=== PATIENT | female | born 1955 | race African-American/Black ===

== ENCOUNTER 2018-03-19 11:38 | Inpatient (IN) | payer MEDICARE ==
[2018-03-19] MEDS ORDERED: Dextrose 50% Abboject 50 ML SYRINGE SLOW IVP PRN (14:36)
[2018-03-19] MEDS ORDERED: Insulin Regular 300 UNITS/3 ML VIAL SC PRN ×2 (14:36)
[2018-03-19] MEDS ORDERED: Ondansetron ODT 4 MG TAB PO PRN (14:36)
[2018-03-19] MEDS ORDERED: Dextrose 5% in Water 1,000 ML IV PRN (14:36)
[2018-03-19] MEDS ORDERED: Acetaminophen 650 MG Suppository PR PRN (14:36)
[2018-03-19] MEDS ORDERED: hydrALAZINE 20 MG/ML VIAL SLOW IVP PRN (15:51)
--- NOTE | 2018-03-19 16:03 | HP ---
DATE OF ADMISSION: 03/19/2018 PRIMARY CARE PHYSICIAN: [facility] in [place]. CHIEF COMPLAINT: Nausea, vomiting with abdominal discomfort. HISTORY OF PRESENT ILLNESS: The patient is a 63-year-old female with diabetes ilene echevarria type 2, hypertension, presented to the emergency room at [facility] with abdominal discomfort that woke her up from sleep. She had several episodes of vomiting prior to the ER arrival. The abdominal pain was in the left lower quadrant, cramping without any aggravating or relieving factor. She felt generally weak and fatigued. No fevers or chills reported. She had a normal bowel movement this mo rning. She denies any chest pain, palpitations, diaphoresis or syncope. In the emergency room, her initial vital signs showed temperature 98.9, respirations 16, pulse rate o f 74 with O2 saturation 89% on room air. Blood pressure was 152/81. CT scan of the abdomen was cons istent with possible small-bowel obstruction. She was transferred to this facility for [facility]. She received 50 mcg fentanyl, 4 mg IV morphine, Zofran with IV fluids. PAST MEDICAL HISTORY: 1. Gout with recent flare. Her uric acid was 11.3 at that time. 2. Asthma, mild, intermittent. 3. Chronic atrial fibrillation on anticoagulation. 4. Hypertension. 5. Diabetes mellitus type 2. 6. Degenerative joint disease. 7. Morbid obesity. 8. Chronic kidney disease stage 3. PAST SURGICAL HISTORY: 1. Partial thyroidectomy in 2014. 2. Hysterectomy. 3. Hernia repair. ALLERGIES: No known drug allergies. CURRENT HOME MEDICATIONS: Per primary care physician's office record, montelukast 10 mg daily, Zyrte c 10 mg daily, Xarelto 20 mg daily, Cardizem extended release 240 mg daily, Lasix 20 mg daily, potass ium chloride 10 mEq daily, lisinopril 20 mg daily, Tradjenta 5 mg daily, Lyrica 50 mg 3 times a day, allopurinol 100 mg daily. SOCIAL HISTORY: The patient currently lives at home with her family. No current use of smoking, alc ohol or drug use. She is full code. FAMILY HISTORY: Negative for premature coronary artery disease or malignancy. REVIEW OF SYSTEMS: The following complete review of systems was negative, unless otherwise mentioned in the HPI or below: Constitutional: Weight loss or gain, ability to conduct usual activities. Sk in: Rash, itching. Eyes: Double vision, pain. ENT/Mouth: Nose bleeding, neck stiffness, pain, te nderness. Cardiovascular: Palpitations, dyspnea on exertion, orthopnea. Respiratory: Shortness of breath, wheezing, cough, hemoptysis, fever or night sweats. Gastrointestinal: Poor appetite, abdom inal pain, heartburn, nausea, vomiting, constipation, or diarrhea. Genitourinary: Urgency, frequenc y, dysuria, nocturia. Musculoskeletal: Pain, swelling. Neurologic/Psychiatric: Anxiety, depressio n. Allergy/Immunologic: Skin rash, bleeding tendency. PHYSICAL EXAMINATION: VITAL SIGNS: As discussed above. GENERAL: A 63-year-old female in distress. She is vomiting at this time. HEENT: Head atraumatic, normocephalic. Sclerae are anicteric. Moist mucous membrane. No oral lesi on. NECK: Supple, no JVD, no carotid bruit. LUNGS: Clear to auscultation bilaterally with diminished air entry at bases. HEART: S1, S2 present. Regular rate and rhythm. No murmur, rubs or gallops appreciated. ABDOMEN: Soft, mild tenderness in the left lower quadrant. No rebound, guarding appreciated. Bowel sounds hypoactive. EXTREMITIES: 1+ edema in bilateral lower extremities. SKIN: Warm and dry. LYMPH NODES: No palpable lymph nodes in the neck. PERIPHERAL VASCULAR: Radial pulses palpable bilaterally. MUSCULOSKELETAL: No joint swelling or tenderness. LABORATORY FINDINGS: CBC showed WBC 11 with a hemoglobin of 11.3, hematocrit 35.4, platelet 185,000. Chemistries showed sodium 141, potassium 4.2, chloride 105, bicarbonate 25, BUN 24, creatinine 1.59 . Urinalysis was negative for WBC. It showed 1+ bacteria. IMAGING: CT scan of the abdomen and pelvis by my review as discussed above. IMPRESSION: 1. Small-bowel obstruction. 2. Chronic atrial fibrillation on anticoagulation. 3. Diabetes mellitus type 2. 4. Hypertension. 5. Mild persistent asthma. 6. Chronic pain syndrome. 7. Degenerative joint disease. 8. Gout. 9. Morbid obesity. 10. Chronic kidney disease stage 3. 11. Chronic anemia. PLAN: The patient will be monitored on the surgical floor. She currently does not have an NG tube. We will consult General Surgery. We will start her on IV fluids. We will confirm home medications. N.p.o. We will place an NG tube if she has persistent nausea and vomiting. Plan of care was discussed with the patient in detail. She stated understanding.
[2018-03-19 16:05] VITALS: BMI 42.3
[2018-03-19] MEDS: Ondansetron HCl/PF 4 MG/2 ML Vial IVP PRN (17:39)
[2018-03-19] MEDS: Sodium Chloride 0.9% 1,000 ML IV SCH (18:05)
[2018-03-19] MEDS: Famotidine/PF 20 mg/2ml Vial SLOW IVP SCH (21:03)
--- NOTE | 2018-03-19 23:26 | CON ---
DATE OF CONSULTATION: 03/19/2018 REQUESTING PHYSICIAN: Dr. Yohan Montez. HISTORY OF PRESENT ILLNESS: This is a 63-year-old morbidly obese -[place] woman who presente d with acute onset of left lower quadrant abdominal pain which woke her up approximately 05:00 hours this morning. Pain intensified, so patient called 911 and was taken to [facility] . Workup there included a CT scan of the abdomen and pelvis following which patient was transferred here to [facility] in [place], [place] for upper level workup and care. The patient reports pain 10/ 10 in maximum intensity, described as crampy without any radiation. She denies any fevers or chills. She did have normal bowel movement this morning. She does not recall the last time she passed flat us. She did have one bout of emesis shortly after arriving here at [facility] in [place], [place]. Curre ntly, she reports 6/10 left-sided greater than upper abdominal pain. She complains of some nausea. She denies any unexplained weight loss or any change in her bowel habits recently. PAST MEDICAL HISTORY: Pertinent for morbid obesity, obstructive sleep apnea, chronic atrial fibrilla tion, type 2 diabetes mellitus, degenerative arthritic disease, stage 3 chronic kidney disease and as thma. PAST SURGICAL HISTORY: Pertinent for partial thyroidectomy in 2014, a total abdominal hysterectomy, ventral incisional herniorrhaphy in 2013 as well as 2015. PREHOSPITALIZATION MEDICATIONS: Includes allopurinol 100 mg p.o. daily, diltiazem 240 mg p.o. daily, furosemide 20 mg p.o. daily, Tradjenta 5 mg p.o. daily, lisinopril 20 mg p.o. daily, montelukast 10 mg p.o. daily, potassium chloride 10 mEq p.o. daily, Lyrica 50 mg p.o. t.i.d., and Xarelto 20 mg p.o. daily. ALLERGIES: Patient denies any known drug allergies. REVIEW OF SYSTEMS: A 10-point review of systems is essentially unremarkable except for as stated in past medical history and chief complaint. PHYSICAL EXAMINATION: GENERAL: This reveals a 63-year-old morbidly obese woman who is otherwise coherent and interactive a nd appears stated age. Patient is alert, oriented x3, appears to be in no acute distress at the time of my evaluation. VITAL SIGNS: Includes blood pressure 179/93, pulse is 89, respiratory rate is 18, temperature 97.4 d egrees Fahrenheit, oxygen saturation is 94% on room air. HEENT: Examination reveals normocephalic and atraumatic. HEART: Reveals regular rate and rhythm, no murmurs or gallops auscultated. LUNGS: Clear to auscultation bilaterally. Breathing is regular and unlabored. ABDOMEN: Soft, morbidly obese. She has mild to moderate tenderness to palpation, no gross rebound t enderness present. Liver and spleen are nonpalpable below costal margin. She has no palpable abdomi nal wall defects to suggest recurrent hernias. NEUROLOGIC: Examination reveals no focal deficits present. PERTINENT LABORATORY DATA: Includes CBC which was obtained in [place] prior to this transfer with 1 1,000 white blood cells, hemoglobin and hematocrit 11.3 and 35.4 respectively, platelet count 185,000 . Metabolic profile; sodium 141, potassium 4.2, chloride is 105, bicarbonate is 27, BUN 24, creatini ne is 1.59, glucose is 174. Hemoglobin A1c 7.9%. AST and ALT normal at 16 and 17 respectively. IMAGING DATA: 1. I have personally reviewed the CT scan of the abdomen and pelvis which reveals a few dilated loop s of small bowel, minimal air fluid level present. 2. There is no free fluid or pneumoperitoneum present. 3. There is scattered gas in the colon and rectum. IMPRESSION: 1. Acute partial small-bowel obstruction. 2. Morbid obesity. 3. Type 2 diabetes mellitus. 4. History of obstructive sleep apnea. PLAN: 1. There is no acute surgical indication for this patient at this time. I will continue with bowel rest and nasogastric tube decompression. 2. We will initiate a small bowel follow through to make further recommendations as necessary. Thank you again Dr. Montez for allowing me the opportunity to participate in the care of this patient.
[2018-03-20] MEDS: Sodium Chloride 0.9% 1,000 ML IV SCH ×3 (01:55→09:23)
[2018-03-20 05:13] LABS: #Eosinphils 0.1 thou/uL (0.0-0.7); #Lymphocytes 3.1 thou/uL (1.20-3.40); #Monocytes 0.7 thou/uL (0.11-0.59); #Neutrophils 5.7 thou/uL (1.40-6.50); %Basophils 0.2 % (0.0-1.0); %Eosinophils 1.5 % (0.0-10.0); %Lymphocytes 32.2 % (21.0-51.0); %Monocytes 6.7 % (0.0-10.0); %Neutrophils 59.5 % (42.0-75.0); Hemoglobin 10.8 g/dL (12.0-16.0); Mean Corpuscular Hemoglobin 27.8 pg (27.0-31.0); Mean Corpuscular Volume 89.7 fL (78.0-98.0); Platelet Count 165 thou/uL (130-400); RBC Distribution Width 12.3 % (11.5-14.5); Red Blood Cell (RBC) Count 3.87 mill/uL (4.20-5.40); White Blood Cell (WBC) Count 9.7 thou/uL (4.8-10.8)
[2018-03-20 05:28] LABS: ALT (SGPT) 14 U/L (8-55); AST (SGOT) 13 U/L (5-34); Albumin 3.8 g/dL (3.4-4.8); Alkaline Phosphatase 78 U/L (40-150); Anion Gap 9 mmol/L (10-20); BUN (Urea Nitrogen) 15 mg/dL (9.8-20.1); Bilirubin, Total 0.5 mg/dL (0.2-1.2); Calc. Creatinine Clearance 100 mL/min (70-130); Calcium 8.8 mg/dL (7.8-10.44); Carbon Dioxide 27 mmol/L (23-31); Chloride 111 mmol/L (98-107); Estimated GFR-MDRD 59; Globulin 2.7 g/dL (2.4-3.5); Glucose 124 mg/dL (80-115); Phosphorus 3.8 mg/dL (2.3-4.7); Potassium 4.2 mmol/L (3.5-5.1); Protein, Total 6.5 g/dL (6.0-8.3); Sodium 143 mmol/L (136-145)
[2018-03-20] MEDS: Famotidine/PF 20 mg/2ml Vial SLOW IVP SCH (08:36)
[2018-03-20] MEDS ORDERED: Acetaminophen 1,000 MG in Premix Bag 1 BAG IVPB SCH (09:15)
[2018-03-20] MEDS: Ondansetron HCl/PF 4 MG/2 ML Vial IVP PRN (09:34)
[2018-03-20] MEDS ORDERED: Sodium Chloride 0.9% 1,000 ML IV SCH (11:11)
--- NOTE | 2018-03-20 11:31 | PRG-2 ---
DATE OF SERVICE: 03/20/2018 SUBJECTIVE: The patient is a 63-year-old -Congolese woman with a past medical history significant for type 2 diabetes mellitus and chronic kidney disease stage 3, who is hospital day #2, admitted for a small-bowel obstruction noted on CT scan yesterday. She has been n.p.o. overnight with an NG tube in place. Had approximately 350 mL of output via her NG tube with 100 mL of emesis overnight. The patient endorses having had a bowel movement at approximately 8:30 this morning, but denies passing any gas since her admission. She was scheduled for a repeat small bowel follow through this morning as the one conducted yesterday was appeared to be futile as the patient did not tolerate drinking the oral contrast. However, Radiology did not perform a repeat study as it was noted the patient had residual contrast in her GI tract upon attempting to repeat the exam this morning. I therefore took another image and stated they would like to have repeat imaging around 2:00 p.m. this afternoon. On exam, the patient denies any abdominal pain or nausea and states she feels well. OBJECTIVE: VITAL SIGNS: Temperature 98 degrees Fahrenheit, pulse 95, respirations 18, O2 sat is 97% on 2 liters nasal cannula (of note, patient was breathing comfortably on room air at the time of the exam at approximately 10:30 a.m.), blood pressure 156/84. GENERAL: The patient was sitting up on the edge of the bed, alert, and oriented , in no acute distress. HEENT: Normocephalic, atraumatic. HEART: Regular rate and rhythm, no murmurs. LUNGS: Clear to auscultation bilaterally with good inspiratory and expiratory effort. ABDOMEN: Minimal tenderness to palpation over the surgical scar from 3 abdominal hernia repair surgeries. Otherwise, nontender to palpation. Abdomen is soft and nondistended with normal bowel sounds noted. EXTREMITIES: Full range of motion in all extremities. NEUROLOGIC: Alert and oriented x3. No focal deficits noted. LABORATORY DATA: White blood count 9.7, hemoglobin 10.8, hematocrit 34.7, platelet count 165. Sodium 143, potassium 4.2, chloride 111, bicarbonate 27, BUN 15, creatinine 1.14, blood glucose 124, phosphorus 3.8, magnesium 2.0, total bilirubin 0.5, AST 13, ALT 14, alkaline phosphatase 78. RADIOLOGIC DATA: Abdomen x-ray significant for residual contrast seen throughout the patient's colon. ASSESSMENT: 1. Acute partial small-bowel obstruction, resolving. 2. Morbid obesity. 3. Type 2 diabetes mellitus. 4. History of obstructive sleep apnea. PLAN: We will remove the patient's NG tube and cancel afternoon and will not proceed with repeat imaging this afternoon. Will advance diet to clear liquids as tolerated by the patient as she did in fact have a bowel movement this morning. Will continue to monitor closely for symptoms of abdominal pain and nausea and adjust diet in accordance to this. Will consider deescalating or discontinuing the patient's IV fluids since she will be allowed to take fluids p.o. today. Will continue to encourage ambulation to induce increased bowel activity as well. Will continue to follow. Plan was discussed with the trauma attending, Dr. Rob Hansen. RENATO
--- NOTE | 2018-03-20 11:48 | RAD ---
FRONTAL VIEW ABDOMEN KUB: INDICATION: Small bowel obstruction. FINDINGS: There is contrast opacification within colon. Otherwise, there is a paucity of bowel gas. Upper abd omen is excluded from view. There are phleboliths overlying the pelvis. Osseous degenerative change is present. IMPRESSION: Contrast opacification throughout the mid colon. Otherwise, paucity of bowel gas. POS: [facility]
--- NOTE | 2018-03-20 16:27 | PDOC.PN ---
- Subjective Encounter Start Date: 03/20/18 Encounter Start Time: 10:00 Patient seen and examined for SBO. Had BM earlier. NG tube dced. On Clear liqd. Abd pain improving. No overnight events - Objective Resuscitation Status: Resuscitation Status FULL:Full Resuscitation MAR Reviewed: Yes Vital Signs & Weight: Vital Signs (12 hours) Temp Pulse Resp BP Pulse Ox 03/20/18 15:47 98.2 F 84 18 152/84 H 98 03/20/18 08:30 97 03/20/18 07:00 98.0 F 95 18 156/84 H 97 03/20/18 04:49 98.2 F 102 H 20 149/85 H 98 Weight Admit Weight 270 lb Weight 270 lb I&O: 03/19/18 03/20/18 03/21/18 06:59 06:59 06:59 Intake Total 1875 Output Total 450 Balance 1425 Result Diagrams: 03/20/18 04:16 03/20/18 04:16 Additional Labs: Accuchecks 03/20/18 03/20/18 03/19/18 10:58 05:28 20:48 POC Glucose 110 124 H 143 H Radiology Reviewed by me: Yes (KUB - reviewed) Phys Exam - Physical Examination Constitutional: NAD Respiratory: no wheezing, no rhonchi Cardiovascular: RRR, no rub Gastrointestinal: soft, non-tender, positive bowel sounds Musculoskeletal: no edema Neurological: moves all 4 limbs Dx/Plan - Plan DVT proph w/SCDs IMPRESSION: 1. Small-bowel obstruction. 2. Chronic atrial fibrillation on anticoagulation. 3. Diabetes mellitus type 2. 4. Hypertension. 5. Mild persistent asthma. 6. Chronic pain syndrome. 7. Degenerative joint disease. 8. Gout. 9. Morbid obesity. 10. Chronic kidney disease stage 3. 11. Chronic anemia. PLAN: Resume Anticoag later today if tolerating PO AM labs Resume Cardizem at 120 mg BID Cont sliding scale Cont other meds as below Review of Systems - Review of Systems Respiratory: negative: Cough, Dry, Shortness of Breath, Hemoptysis, SOB with Excertion, Pleuritic Pain, Sputum, Wheezing Cardiovascular: negative: chest pain, palpitations, orthopnea, paroxysmal nocturnal dyspnea, edema, light headedness, other - Medications/Allergies Allergies/Adverse Reactions: Allergies Allergy/AdvReac Type Severity Reaction Status Date / Time No Known Allergies Allergy Verified 03/19/18 16:10 Medications: Current Medications Acetaminophen (Tylenol) 650 mg PO Q4H PRN PRN Reason: Headache/Fever/Mild Pain (1-3) Acetaminophen (Tylenol) 650 mg NE Q4H PRN PRN Reason: Headache/Fever/Mild Pain (1-3) Allopurinol (Zyloprim) 100 mg PO DAILY [facility] Dextrose/Water (Dextrose 50%) 25 gm SLOW IVP PRN PRN PRN Reason: Hypoglycemia Diltiazem HCl (Cardizem Cd) 120 mg PO BID [facility] Famotidine (Pepcid) 20 mg PO BID [facility] Glucagon (Glucagon) 1 mg IM PRN PRN PRN Reason: Hypoglycemia Hydralazine HCl (Apresoline) 10 mg SLOW IVP Q4H PRN PRN Reason: SBP Greater Than 180 Dextrose/Water (D5w) 1,000 mls @ 0 mls/hr IV .Q0M PRN PRN Reason: Hypoglycemia Acetaminophen 1,000 mg/ Device 100 mls @ 400 mls/hr IVPB ONE [facility] Stop: 03/21/18 09:16 Last Admin: 03/20/18 09:23 Dose: 100 mls Insulin Human Regular (Humulin R) 0 units SC .MILD SLIDING SCALE PRN PRN Reason: Mild Correctional Scale Insulin Human Regular (Humulin R) 0 units SC .BEDTIME SLIDING SC PRN PRN Reason: Bedtime Correctional Scale Montelukast Sodium (Singulair) 10 mg PO DAILY [facility] Non-Formulary Medication (Rivaroxaban [Xarelto]) 20 mg PO QPM [facility] Ondansetron HCl (Zofran Odt) 4 mg PO Q6H PRN PRN Reason: Nausea/Vomiting Ondansetron HCl (Zofran) 4 mg IVP Q6H PRN PRN Reason: Nausea/Vomiting Last Admin: 03/20/18 09:34 Dose: 4 mg Pregabalin (Lyrica) 50 mg PO TID [facility] Sodium Chloride (Flush - Normal Saline) 10 ml IVF PRN PRN PRN Reason: Saline Flush
[2018-03-20] MEDS: Famotidine 20 MG TAB PO SCH (18:10)
[2018-03-20] MEDS ORDERED: Rivaroxaban 10 MG TAB PO SCH (21:00)
[2018-03-20] MEDS: Pregabalin 50 MG CAP PO SCH (21:09)
[2018-03-20] MEDS ORDERED: Montelukast Sodium 10 mg Tablet PO SCH (21:15)
[2018-03-21] MEDS: Acetaminophen 325 MG TAB PO PRN ×2 (04:51→09:20)
[2018-03-21 05:34] LABS: ALT (SGPT) 13 U/L (8-55); AST (SGOT) 15 U/L (5-34); Albumin 3.6 g/dL (3.4-4.8); Alkaline Phosphatase 69 U/L (40-150); Anion Gap 8 mmol/L (10-20); BUN (Urea Nitrogen) 14 mg/dL (9.8-20.1); Bilirubin, Total 0.4 mg/dL (0.2-1.2); Calc. Creatinine Clearance 97 mL/min (70-130); Calcium 8.7 mg/dL (7.8-10.44); Carbon Dioxide 28 mmol/L (23-31); Chloride 108 mmol/L (98-107); Estimated GFR-MDRD 56; Globulin 2.7 g/dL (2.4-3.5); Glucose 120 mg/dL (80-115); Protein, Total 6.3 g/dL (6.0-8.3); Sodium 140 mmol/L (136-145)
[2018-03-21 06:06] LABS: Band 6 % (5-11); Eosinophils 1 % (0-10); Hemoglobin 9.8 g/dL (12.0-16.0); Lymphocytes 48 % (21-51); MDiff Complete? YES; Mean Corpuscular HGB CONC 31.7 g/dL (32.0-36.0); Mean Corpuscular Hemoglobin 28.3 pg (27.0-31.0); Monocytes 6 % (0-10); Neutrophil 38 % (42-75); PLT Morphology Comment Appears Adequate; Platelet Count 154 thou/uL (130-400); RBC Distribution Width 12.2 % (11.5-14.5); Red Blood Cell (RBC) Count 3.46 mill/uL (4.20-5.40); White Blood Cell (WBC) Count 7.5 thou/uL (4.8-10.8)
[2018-03-21] MEDS ORDERED: Rivaroxaban 10 MG TAB PO SCH (08:00)
[2018-03-21] MEDS ORDERED: Montelukast Sodium 10 mg Tablet PO SCH ×2 (09:00→21:00)
[2018-03-21] MEDS ORDERED: Allopurinol 100 MG TAB PO SCH (09:00)
[2018-03-21] MEDS: Famotidine 20 MG TAB PO SCH (09:17)
[2018-03-21] MEDS: Pregabalin 50 MG CAP PO SCH ×2 (09:18→15:10)
[2018-03-21 11:41] VITALS: TEMP 98.2
[2018-03-21 15:11] VITALS: BP 148/87
--- NOTE | 2018-03-21 16:14 | PRG ---
DATE OF SERVICE: 03/21/2018 SUBJECTIVE: The patient is hospital day #3 status post admission for possible small-bowel obstructio n. The patient yesterday had her NG tube removed as she was passing gas and denied any nausea overni ght. She tolerated a clear liquid diet and this morning, tolerated a regular diet. She has had mildred l movements and continues to deny nausea and is passing gas. PHYSICAL EXAMINATION: VITAL SIGNS: Temperature is 97.4, heart rate 68, blood pressure 169/84, respirations 18, oxygen satu ration 98% on room air. GENERAL: The patient is resting comfortably, sitting in a chair at bedside. She is awake, alert, or iented x3. HEENT: Unremarkable. LUNGS: Clear to auscultation with good inspiratory and expiratory effort. HEART: Regular rate and rhythm. ABDOMEN: Soft, nontender with active bowel sounds. EXTREMITIES: Neurovascularly intact x4. LABORATORY DATA: White blood cell count 7.5, hemoglobin 9.8, hematocrit 30.8, platelets 154. Sodium 140, potassium 4.0, chloride 108, CO2 of 28, BUN 14, creatinine 1.18, glucose 120. LFTs are unremar kable. There are no radiographs to review this morning. ASSESSMENT AND PLAN: 1. Status post possible small-bowel obstruction, resolved. 2. Known kidney disease, stable. Plan will be to sign off from the patient. There are no surgical indications at this time. Should the patient develop nausea, vomiting or abdominal pain, we are avai lable for reconsultation. The patient may follow up with us as needed, but with a resolved partial S KODY, it will be unlikely she will require followup from our service.
--- NOTE | 2018-03-21 19:03 | DIS ---
DATE OF DISCHARGE: 03/21/2018 DISCHARGE DISPOSITION: Home. FOLLOWUP: 1. Follow up with primary care physician, Vickie Linder in 1 week. 2. Follow up with General Surgery, Dr. Hansen as needed. The patient was seen and examined on the day of discharge, denies any new complaints, no chest pain, shortness of breath, palpitations. She had a bowel movement this morning. She is able to tolerate r egular diet. BRIEF HOSPITAL COURSE: The patient is a 63-year-old -[place] female with diabetes mellitus t ype 2, hypertension, hernia repair, and hysterectomy in the past, presented to the hospital with naus ea, vomiting, and abdominal discomfort. Her workup was consistent with small-bowel obstruction. Ple ase refer to the history and physical for further details. The patient was admitted to the hospital with a diagnosis of small-bowel obstruction. She was kept n .p.o. NG tube was placed. She was started on IV fluids. The patient was seen by General Surgery, Genevieve Hansen. A Gastrografin small bowel follow-through was attempted; however, the patient had residual contrast from the previous day CT scan. Patient then started having bowel movements. NG tube was d iscontinued. She was started on liquid diet that was gradually advanced. Patient also had a bowel m ovement this morning. She is doing well and denies any abdominal discomfort. All of her home medica tions were resumed yesterday afternoon. She appears stable for discharge. FINAL DIAGNOSES: 1. Small-bowel obstruction, resolved. 2. Chronic atrial fibrillation on anticoagulation. 3. Diabetes mellitus type 2. 4. Morbid obesity with body mass index 42.3. 5. Hypertension. 6. Mild persistent asthma. 7. Chronic pain syndrome. 8. Degenerative joint disease. 9. Gout. 10. Chronic kidney disease stage 3. 11. Chronic anemia. DISCHARGE MEDICATIONS: Same as admission medications. No changes were made. Plan of care was discussed with the patient in detail. She stated understanding.
== END 2018-03-21 15:25 | disposition home or self-care (01) | DRG 389 ==
LOC: ERS 11:38 → SURG A 12:50
PROVIDERS: ADMIT Internal Medicine; ATTEND Internal Medicine
DX: K56.600 Partial intestinal obstruction, unspecified as to cause (principal); Z68.41 Body mass index [BMI] 40.0-44.9, adult; E66.01 Morbid (severe) obesity due to excess calories; N18.3 Chronic kidney disease, stage 3 (moderate); I12.9 Hypertensive chronic kidney disease with stage 1 through stage 4 chronic kidney disease, or unspecified chronic kidney disease; M10.9 Gout, unspecified; E11.22 Type 2 diabetes mellitus with diabetic chronic kidney disease; I48.2 Chronic atrial fibrillation; G47.33 Obstructive sleep apnea (adult) (pediatric); M19.90 Unspecified osteoarthritis, unspecified site; J45.20 Mild intermittent asthma, uncomplicated; Z79.899 Other long term (current) drug therapy; Z79.01 Long term (current) use of anticoagulants; G89.4 Chronic pain syndrome; D64.9 Anemia, unspecified
CPT/HCPCS: 36415; 36416; 74018; 74250; 80053; 83735; 84100; 85025; 96374; J0131; J2270; J2405; S0028

== ENCOUNTER 2019-02-10 08:17 | Outpatient (CLI) | payer MEDICARE ==
--- NOTE | 2019-02-18 15:49 | MMO ---
Bilateral MAMMO Bilat Screen [facility]DI+YAIMA. CLINICAL HISTORY: Patient is 64 years old and is seen for screening. The patient has the following family history of breast cancer: maternal grandmother, malignant (generic). The patient has no personal history of cancer. VIEWS: The views performed were: bilateral craniocaudal with tomosynthesis and bilateral mediolateral oblique with tomosynthesis. FILMS COMPARED: The present examination has been compared to prior imaging studies performed at This study has been interpreted with the assistance of computer-aided detection. MAMMOGRAM FINDINGS: There are scattered fibroglandular densities. Finding 1: Benign calcifications are noted bilaterally. Finding 2: Nodules in the right upper outer breast are larger. IMPRESSION: FINDING 1: FINDINGS IN BOTH BREASTS ARE BENIGN. FINDING 2: FINDING IN THE RIGHT BREAST REQUIRES ADDITIONAL EVALUATION. AN ULTRASOUND EXAM IS RECOMMENDED. ADDITIONAL IMAGING. THE RESULTS OF THIS EXAM WERE SENT TO THE PATIENT. ACR BI-RADS Category 0 - Incomplete: Need additional imaging evaluation. [facility] will notify the patient of the need for additional imaging services. MAMMOGRAPHY NOTE: 1. A negative mammogram report should not delay a biopsy if a dominant of clinically suspicious mass is present. 2. Approximately 10% to 15% of breast cancers are not detected by mammography. 3. Adenosis and dense breasts may obscure an underlying neoplasm. Reported by: JIA AZUL MD Electonically Signed: [id number]
== END 2019-02-10 08:18 | disposition home or self-care (01) ==
LOC: BICMAMMO 08:17
PROVIDERS: ATTEND Nurse Practitioner
DX: Z12.31 Encounter for screening mammogram for malignant neoplasm of breast (principal); Z80.3 Family history of malignant neoplasm of breast
CPT/HCPCS: 77063; 77067

== ENCOUNTER 2019-03-12 10:12 | Outpatient (CLI) | payer MEDICARE ==
--- NOTE | 2019-03-12 12:07 | ULT ---
RIGHT BREAST ULTRASOUND: Date: 03/12/19 HISTORY: Abnormal mammogram of 02/10/19. FINDINGS: Correlation is made with mammogram of 02/10/19. Sonographic evaluation of the right upper outer breast demonstrates a 1.5 x 1.3 x 1.4 cm nonshadowing hyperechoic well-circumscribed mass with echogenic center and loss of reniform shape, consistent wit h a suspicious lymph node. A similar finding is also seen between the 9 and 10 o'clock positions measures 1.0 cm. IMPRESSION: BI-RADS Category 4 - Suspicious abnormality. Ultrasound guided biopsies of the enlarged lymph nodes r ecommended. Discussed in person with the patient at 1030 hours. POS: OFF
== END 2019-03-12 10:13 | disposition home or self-care (01) ==
LOC: BICULT 10:12
PROVIDERS: ATTEND Nurse Practitioner
DX: N63.11 Unspecified lump in the right breast, upper outer quadrant (principal)

== ENCOUNTER → 2019-04-09 | Day surgery (SDC) | payer MEDICARE ==
--- NOTE | 2019-04-09 13:52 | MMO ---
Right Breast MAMMO Unilat Diag DDI RT. CLINICAL HISTORY: Patient is 64 years old and is seen for diagnostic exam. The patient has the following family history of breast cancer: maternal grandmother, malignant (generic). The patient has no personal history of cancer. VIEWS: The views performed were: right craniocaudal and right mediolateral. FILMS COMPARED: The present examination has been compared to prior imaging studies performed at on 02/10/2019 and 03/12/2019. This study has been interpreted with the assistance of computer-aided detection. IMPRESSION: FINDING IN THE RIGHT BREAST IS CONFIRMED UTILIZING POST PROCEDURE MAMMOGRAM. THE RESULTS OF THIS EXAM WERE SENT TO THE PATIENT. MAMMOGRAPHY NOTE: 1. A negative mammogram report should not delay a biopsy if a dominant of clinically suspicious mass is present. 2. Approximately 10% to 15% of breast cancers are not detected by mammography. 3. Adenosis and dense breasts may obscure an underlying neoplasm. Reported by: Pallavi CARDENAS Electonically Signed: [id number]
--- NOTE | 2019-04-09 16:51 | ULT ---
ULTRASOUND GUIDED RIGHT BREAST LYMPH NODE BIOPSY: 04/09/19 HISTORY: Enlarged lymph nodes. History of leukemia. COMPARISON: Breast ultrasound 03/12/19. FINDINGS: The patient is brought to the Ultrasound Suite where questions were answered. Informed consent was ob tained. Timeout performed. Patient's right breast was prepped and draped in a normal sterile fashion. After adequate anesthesia using ultrasound guidance, a total of four 14 gauge cores of the enlarged right breast lymph node was obtained. The sample was put in Cytolyte due to history of leukemia. IMPRESSION: Technically successful ultrasound guided lymph node biopsy. POS: OFF
== END ==
LOC: BICULT 12:49
PROVIDERS: ATTEND Surgery
PROC: 0H9T3ZX Drainage of Right Breast, Percutaneous Approach, Diagnostic (ICD-10-PCS; principal; 2019-04-09)
DX: C91.10 Chronic lymphocytic leukemia of B-cell type not having achieved remission (principal)
CPT/HCPCS: 19083; 88305; 88341; 88342; 88360

== ENCOUNTER 2019-05-19 10:27 | Inpatient (IN) | payer MEDICARE ==
--- NOTE | 2019-05-19 11:44 | RAD ---
XR Chest 1 View Portable HISTORY: Chest pain, cough, difficulty breathing COMPARISON: None FINDINGS: The heart size is normal. The lungs are well expanded without focal areas of consolidation, pneumothorax or pleural effusions. There is widening of the mediastinum. Possibility of a mass cannot be excluded. Evaluation with contrast-enhanced CT scan is recommended.
[2019-05-19 11:50] LABS: ALT (SGPT) 8 U/L (8-55); AST (SGOT) 32 U/L (5-34); Albumin 4.4 g/dL (3.4-4.8); Alkaline Phosphatase 227 U/L (40-110); Anion Gap 15 mmol/L (10-20); BUN (Urea Nitrogen) 15 mg/dL (9.8-20.1); Bilirubin, Total 0.4 mg/dL (0.2-1.2); CK (CPK) 31 U/L (29-168); Calc. Creatinine Clearance 0 mL/min (70-130); Calcium 8.9 mg/dL (7.8-10.44); Carbon Dioxide 23 mmol/L (23-31); Chloride 109 mmol/L (98-107); Estimated GFR-MDRD 40; Globulin 2.3 g/dL (2.4-3.5); Glucose 118 mg/dL (80-115); Potassium 6.1 mmol/L (3.5-5.1); Protein, Total 6.7 g/dL (6.0-8.3); Sodium 141 mmol/L (136-145)
[2019-05-19 11:54] LABS: Mean Corpuscular HGB CONC 26.6 g/dL (32.0-36.0); Mean Corpuscular Hemoglobin 23.9 pg (27.0-31.0); Mean Corpuscular Volume 89.9 fL (78.0-98.0); Mean Platelet Volume 8.2 fL (7.4-10.4); Platelet Count 144 thou/uL (130-400); RBC Distribution Width 16.5 % (11.5-14.5); Red Blood Cell (RBC) Count 3.34 mill/uL (4.20-5.40); Reflex for Review?? YES
[2019-05-19 11:57] LABS: Anisocytosis SLIGHT = 6-15 cells (100X) (0-5/hpf); Band 1 % (5-11); Lymphocytes 96 % (21-51); MDiff Complete? YES; Monocytes 1 % (0-10); Neutrophil 2 % (42-75); Platelet Morphology Comment Appears Adequate; Polychromasia MODERATE = 3-4 cells (100X) (0-2/hpf)
[2019-05-19] MEDS ORDERED: Fentanyl 100 MCG/2 ML VIAL ONE (12:14)
[2019-05-19 12:32] LABS: CKMB 0.4 ng/mL (0-6.6)
[2019-05-19] MEDS ORDERED: Lorazepam 2 MG/ML VIAL ONE (13:06)
[2019-05-19] MEDS ORDERED: Iopamidol-370 76% 500 ML 1 ML ONE (13:45)
--- NOTE | 2019-05-19 14:34 | CT ---
CT ANGIO CHEST AND ABDOMEN PERFORMED WITH IV CONTRAST ENHANCEMENT WITH 3D RECONSTRUCTIONS: Date: 05/19/19 COMPARISON: 03/19/18 study. FINDINGS: Lung bases show bibasilar atelectatic lung change. No pulmonary nodules are identified. There is massive bilateral axillary and mediastinal lymphadenopathy with markedly enlarged mediastina l nodes. Some of the prevascular nodes are as large at 2.8 cm. Small hilar nodes are seen. The angiographic phase was actually very suboptimal, but I do not feel this is of any consequence. Th oracic aorta is normal in caliber. I do not appreciate a dissection. An enlarged left lobe is noted, which appears to be a large left lobe thyroid nodule. The visualized portion of the neck region shows what appears to be some neck lymphadenopathy and ther e is supraclavicular adenopathy present. CT ANGIO OF ABDOMEN PERFORMED WITH CONTRAST ENHANCEMENT: Liver shows no focal findings. The spleen is markedly enlarged, measuring 20 cm in length. Pancreas r egion shows no mass. Gallbladder is unremarkable. Right and left adrenal glands, and right and left k idneys are normal. There is massive periaortic, aortocaval, gastrohepatic, peripancreatic, and mesent carlos lymphadenopathy noted. Adenopathy is seen extending into the iliac chains. Pelvis was not performed for this exam. The abdominal aorta is normal in caliber. IMPRESSION: Extensive adenopathy in the chest and abdomen, also pelvis and probably neck region, as discussed abo ve, with massive splenomegaly. These changes are most compatible with lymphoma. These findings were discussed with Diana Gibson. CODE CR. POS: MICHAEL
[2019-05-19 15:12] LABS: Troponin I Less than 0.010 ng/mL (< 0.028)
[2019-05-19 17:50] LABS: Troponin I 0.045 ng/mL (< 0.028)
--- NOTE | 2019-05-19 19:14 | HP ---
PRIMARY CARE PHYSICIAN: Dr. Pereira. FORMER ONCOLOGIST: Dr. Rubén Whitney in [place], [place]. CHIEF COMPLAINT: Shortness of breath x3 days, right-sided chest pain. HISTORY OF PRESENT ILLNESS: A 64-year-old obese female with past medical history of CLL/SLL, reports 6 months of chemotherapy in 2016 with no subsequent followup since March 2016; LAUREL, on CPAP; chronic atrial fibrillation, on Xarelto with possible CHF, hypertension, type 2 diabetes mellitus, gout, who presents to [facility] ER for 3-day history of shortness of breath and pain in the right side of her chest associated with some intermittent coughing this morning that she attributes to her asthma, prompting further ED evaluation. She denies any fevers, chills, nausea, vomiting, or weight changes, but reports in the past 2 weeks, she has had frequent sweats. Furthermore, she notes having some neck discomfort couple of weeks ago and being prescribed a course of oral antibiotics by her primary care physician with temporizing relief. In addition to discomfort on the right side of her breast/chest, she also noted discomfort in her left groin 2 days ago while showering. In ER, initial troponin was 0.200 with repeat troponin negative. 12-lead EKG suggested an atrial fibrillation with ventricular rate control without ischemic changes. Laboratory values revealed marked abnormalities with a white blood cell count of 394.0 with 96% manual lymphocytes, moderate smudge cells and smear pathology pending. Chemistries revealed a potassium of 6.1, uric acid 6.2 in the setting of gout, on allopurinol. Phosphorus 4.0, calcium 8.9, albumin 4.4. LDH and flow cytometry are pending. One-view chest x-ray on 05/19/2019, suggested widening of mediastinum and CT chest, abdomen, pelvis dissection protocol with contrast revealed massive lymphadenopathy involving bilateral axilla and mediastinum without evidence of dissection and CT abdomen revealed marked splenomegaly, 20 cm in length with massive adenopathy involving periaortic, aortocaval, gastrohepatic, peripancreatic, mesenteric lymph nodes and extending into the iliac chains. Pelvic imaging examination was not performed. Oncologist was consulted recommending no transfer and admission to the hospital for further evaluation. This patient was administered 1 mg IV Ativan, 1 inch Nitro-Bid ointment, 50 mcg IV fentanyl, 500 mL IV fluid bolus and admitted for further inpatient evaluation. Furthermore, the patient was reported to have oxygen saturation on room air in upper 80s per ER documentation and was placed on oxygen nasal cannula 2 L with improvement of saturation 96%. At bedside, the patient corroborates history. She still feels short of breath. She offers no other acute complaints. She notes that her primary care physician noted abnormalities on the right breast/chest wall recently and has referred her to see her oncologist, which she has not yet seen. PAST MEDICAL HISTORY: CLL/SLL with prior chemotherapy for 6 months in 2016, morbid obesity; LAUREL, on CPAP; chronic atrial fibrillation, hypertension, type 2 diabetes mellitus, gout. PAST SURGICAL HISTORY: Hysterectomy, partial thyroidectomy, and herniorrhaphy. SOCIAL HISTORY: The patient lives at home with her sister and other family members. She denies tobacco or alcohol use. Uses a cane to ambulate. ALLERGIES: NONE REPORTED. REVIEW OF SYSTEMS: Pertinent positives as per HPI. Remainder of review of systems negative. HOME MEDICATION: Reviewed as per admission medication reconciliation. FAMILY HISTORY: The patient's mother of COPD complications and the patient's father with heart problems. No family history of cancer reported. PHYSICAL EXAMINATION: VITAL SIGNS: Temperature 97.5, pulse 80s to 90s, atrial fibrillation, blood pressure 134/85, oxygen saturation 96% to 100% on 2 L nasal cannula, respirations 20 to 24 breaths per minute, labored. GENERAL APPEARANCE: This is an elderly obese female, awake, alert, oriented, with increased work of breathing noted. HEENT: Normocephalic, atraumatic. No facial asymmetry. Pupils equally round. Extraocular muscles intact. NECK: Supple. Lymphadenopathy evaluation reveals there is palpable tender lymphadenopathy involving submandibular, anterior neck, supraclavicular, axillary, and groin. CARDIOVASCULAR: S1 and S2, irregularly irregular. No harsh murmurs. No reproducible chest wall tenderness on palpation. LUNGS: Labored respirations at rest. Bilateral equal air entry. Clear to auscultation. Scattered coarse breath sounds on posterior auscultation. ABDOMEN: Soft, nondistended, nontender to palpation. Normoactive bowel sounds. EXTREMITIES: There is trace lower extremity pitting edema. No cyanosis or deformities appreciated. SKIN: Warm to touch without rashes or pallor or abrasion. LABORATORY VALUES: White blood cell count 394.0, differential 96% lymphocytes, moderate smudge cells. Smear pathology pending. H and H 8.0/30.0, platelets of 144. Initial troponin I 0.200 with repeat troponin negative. D-dimer less than 0.27. CPK 31. Sodium 141, potassium 6.1, chloride 109, bicarb 23, glucose 118, BUN and creatinine 15/1.57, GFR 40, albumin 4.4, total protein of 6.7, alkaline phosphatase 227. IMAGING DATA: One-view chest x-ray reveals widening of mediastinum. CTA chest and abdomen dissection protocol reveals widespread adenopathy involving axilla, mediastinum, intraabdominal retroperitoneum as well as marked splenomegaly and low suspicion for dissection. EKG reviewed, atrial fibrillation with ventricular rate controlled. ASSESSMENT AND PLAN: 1. Acute leukemia, suspected secondary to malignancy versus transformation of lymphoma. The patient will be admitted as inpatient status and placed on telemetry monitoring. Oncologist on-call consulted, advising against transfer and recommending inpatient admission. We will await completion of laboratory values to assess for tumor lysis. Awaiting LDH and flow cytometry. Awaiting peripheral blood smear pathology. Continue oxygen modalities via nasal cannula. Obtain transthoracic echocardiogram to guide fluid resuscitation for any possible tumor lysis. Monitor electrolyte derangements. Repeat a.m. labs on 05/20/2019. Further recommendations as per oncologist. The patient previously has documented diagnosis of chronic lymphocytic leukemia/small lymphocytic lymphoma and reports in 2016 following with oncologist, Dr. Rubén Whitney in [place], [place], completing 6 rounds of chemotherapy completed in March 2016 with no subsequent followup since that time. She also provides vague recent constitutional type B symptoms. 2. Acute respiratory failure with hypoxia. Possibly secondary to #1. We will need to assess for leukostasis. Continue oxygen via nasal cannula and monitor for any impending respiratory compromise. 3. Acute on chronic anemia. We will obtain coagulation profile, hemolysis panel, type and screen patient, and maintain supportive PRBC transfusions. 4. Hyperkalemia. We will administer oral Kayexalate, avoid nephrotoxins, and monitor for tumor lysis. 5. History of chronic lymphocytic leukemia/small lymphocytic lymphoma with prior chemotherapy recent x6 months by Dr. Rubén Whitney in [place], [place]. 6. Chronic atrial fibrillation with ventricular rate controlled. Continue home medications. Avoid oral anticoagulation in the setting of any possible lymph node biopsy. Retain coagulation profile in the setting of anticoagulation use. 7. Morbid obesity. 8. Obstructive sleep apnea. Continue nightly CPAP per home settings once verified. 9. Hypertension, benign. 10. Type 2 diabetes mellitus. Monitor Accu-Cheks. 11. Deep vein thrombosis prophylaxis: The patient's last dose of Xarelto was this morning at home. Avoid chemical anticoagulation until further Oncology recommendations are clear. 12. Check a.m. labs on 05/20/2019. 13. Code status: Full code. 14. Disposition: The patient will be admitted as inpatient status and placed on telemetry monitoring. Job ID: [id number]
[2019-05-20] MEDS: Acetaminophen 325 MG TAB PO PRN (02:34)
[2019-05-20] MEDS: Ondansetron ODT 4 MG TAB PO PRN (02:34)
[2019-05-20 04:17] LABS: INR-International Normal Ratio 1.8; Prothrombin Time 20.4 SEC (12.0-14.7)
[2019-05-20 04:36] LABS: ALT (SGPT) 7 U/L (8-55); AST (SGOT) 26 U/L (5-34); Albumin 4.2 g/dL (3.4-4.8); Alkaline Phosphatase 220 U/L (40-110); Anion Gap 11 mmol/L (10-20); BUN (Urea Nitrogen) 15 mg/dL (9.8-20.1); Bilirubin, Total 0.5 mg/dL (0.2-1.2); Calc. Creatinine Clearance 83 mL/min (70-130); Calcium 8.7 mg/dL (7.8-10.44); Carbon Dioxide 28 mmol/L (23-31); Chloride 108 mmol/L (98-107); Estimated GFR-MDRD 45; Globulin 2.3 g/dL (2.4-3.5); Glucose 103 mg/dL (80-115); Potassium 4.5 mmol/L (3.5-5.1); Protein, Total 6.5 g/dL (6.0-8.3); Sodium 142 mmol/L (136-145)
[2019-05-20 04:51] LABS: Hemoglobin 8.4 g/dL (12.0-16.0); Mean Corpuscular HGB CONC 28.5 g/dL (32.0-36.0); Mean Corpuscular Hemoglobin 25.7 pg (27.0-31.0); Mean Corpuscular Volume 90.2 fL (78.0-98.0); Mean Platelet Volume 7.4 fL (7.4-10.4); Platelet Count 156 thou/uL (130-400); RBC Distribution Width 16.4 % (11.5-14.5); Red Blood Cell (RBC) Count 3.28 mill/uL (4.20-5.40)
[2019-05-20 05:15] LABS: Hypochromia SLIGHT = 6-15 cells (100X) (0-5/hpf); Lymphocytes 99 % (21-51); MDiff Complete? YES; Neutrophil 2 % (42-75); Platelet Morphology Comment Appears Adequate
--- NOTE | 2019-05-20 10:45 | PDOC.HOSPP ---
- Subjective Subjective: Pt reports that she is feeling a lot better today than yesterday. She's been resting comfortably. - Objective Vital Signs & Weight: Vital Signs (12 hours) Temp Pulse Resp BP Pulse Ox 05/20/19 07:54 98.0 F 93 13 105/55 L 97 05/20/19 04:00 97.5 F L 94 20 110/52 L 97 Weight Weight 282 lb 11.2 oz I&O: 05/19/19 05/20/19 05/21/19 06:59 06:59 06:59 Intake Total 240 Balance 240 Result Diagrams: 05/20/19 03:57 05/20/19 03:57 Additional Labs: Accuchecks 05/20/19 05/19/19 05:53 20:49 POC Glucose 105 162 H Hospitalist ROS - Medication Medications: Active Medications Generic Name Dose Route Start Last Admin Trade Name Freq PRN Reason Stop Dose Admin Acetaminophen 650 mg 05/19/19 17:19 05/20/19 02:34 Tylenol PO 650 mg Q4H PRN Administration Headache/Fever/Mild Pain (1-3) Ondansetron HCl 4 mg 05/20/19 01:33 05/20/19 02:34 Zofran Odt PO 4 mg Q6H PRN Administration Nausea/Vomiting - Exam General Appearance: NAD, awake alert Neck - other findings: significant diffuse lymphadenopathy Heart: murmur present (II/ systolic murmur) Respiratory: CTAB, no wheezes, no rales, no ronchi, normal chest expansion, no tachypnea Gastrointestinal: soft, non-tender Gastrointestinal - other findings: hepatosplenomegaly Extremities: no edema Hosp A/P (1) Acute respiratory failure with hypoxia Code(s): J96.01 - ACUTE RESPIRATORY FAILURE WITH HYPOXIA Status: Acute (2) CLL (chronic lymphocytic leukemia) Code(s): C91.10 - CHRONIC LYMPHOCYTIC LEUK OF B-CELL TYPE NOT ACHIEVE REMIS Status: Acute (3) Afib Code(s): I48.91 - UNSPECIFIED ATRIAL FIBRILLATION Status: Acute (4) Gout Code(s): M10.9 - GOUT, UNSPECIFIED Status: Acute (5) Hyperkalemia Code(s): E87.5 - HYPERKALEMIA Status: Acute (6) HTN (hypertension) Code(s): I10 - ESSENTIAL (PRIMARY) HYPERTENSION Status: Acute (7) Diabetes mellitus Code(s): E11.9 - TYPE 2 DIABETES MELLITUS WITHOUT COMPLICATIONS Status: Acute (8) LAUREL (obstructive sleep apnea) Code(s): G47.33 - OBSTRUCTIVE SLEEP APNEA (ADULT) (PEDIATRIC) Status: Acute - Plan CLL: Will obtain records from oncologist in [place]. Oncology has seen patient and is awaiting flow cytometry and peripheral smear. Acute hypoxic respiratory failure: Etiology unclear. Currently on 4L NC. CXR/CT show no evidence of acute pulmonary pathology. Some intra-thoracic lymphadenopathy, but no evidence of obstruction. Plan to have patient ambulate today with PT and reassess respiratory status. Will consult pulmonology if patient continues to be hypoxic. Hyperkalemia: Kayexalate given yesterday. Resolved. PT to ambulate patient. DVT Prophylaxis: On Xarelto PUB Prophylaxis: Add Pepcid.
[2019-05-20] MEDS ORDERED: Lisinopril 10 MG TAB PO SCH (11:00)
[2019-05-20] MEDS ORDERED: Dextrose 50% Abboject 50 ML SYRINGE SLOW IVP PRN (11:45)
[2019-05-20] MEDS ORDERED: Dextrose 5% in Water 1,000 ML IV PRN (11:45)
[2019-05-20] MEDS: HumaLOG 300 UNITS/3 ML VIAL SC PRN (11:54)
[2019-05-20] MEDS: Pregabalin 50 MG CAP PO SCH ×2 (14:32→20:53)
--- NOTE | 2019-05-21 08:31 | CON ---
DATE OF CONSULTATION: REASON FOR CONSULTATION: CLL. HISTORY OF PRESENT ILLNESS: A 64-year-old female with history of CLL, status post chemotherapy in 2014 with bendamustine and Rituxan x6 cycles with excellent response, however she did not continue follow up, now presenting to the hospital with chest pain and shortness of breath. She had a CT dissection protocol that did not show aortic dissection; however, did show diffuse lymphadenopathy in the chest, abdomen, pelvis and neck, and massive splenomegaly. Her white blood cells were 394, hemoglobin 8.0, and platelets 144. She was previously treated for her CLL in [place] with Dr. Rubén Whitney, last seen in 2015. She denies any recent fevers. She does have night sweats, but states they are not drenching. She denies unintentional weight loss. She has noticed increasing lymphadenopathy in her neck, groin, axilla over the last couple of months and says this is not rapid. Of note, she had a recent breast biopsy on April 09 that showed CLL in the lymph node in the breast. Admission to the hospital, she was placed on oxygen and her shortness of breath and chest pain have improved and mostly resolved. Her LDH is only mildly elevated and uric acid is 6.2. Her creatinine is at her baseline over the last 18 months. REVIEW OF SYSTEMS: Ten-point review of systems negative except as per HPI. PAST MEDICAL HISTORY: Diabetes, hypertension, CLL, obstructive sleep apnea, and atrial fibrillation. PAST SURGICAL HISTORY: Hysterectomy, partial thyroidectomy, and herniorrhaphy. SOCIAL HISTORY: Lives at home. No tobacco or alcohol. Walks with a cane. ALLERGIES: NO KNOWN DRUG ALLERGIES. FAMILY HISTORY: No cancer. PHYSICAL EXAMINATION: VITAL SIGNS: Temperature 97.7, pulse 90, respirations 15, saturating 99% on 4 L by nasal cannula, blood pressure 131/61. GENERAL APPEARANCE: The patient is up in bed, in no acute distress. HEENT: Normocephalic and atraumatic. Nasal cannula in place. RESPIRATIONS: Clear to auscultation bilaterally. CARDIOVASCULAR: S1 and S2. Regular rate. ABDOMEN: Obese, nontender. NEUROLOGIC: Moves all extremities. LYMPHATICS: Diffuse lymphadenopathy in bilateral cervical chains, left inguinal area, and bilateral axilla. LABORATORY DATA: White blood cells 390, hemoglobin 8.4, platelets 156, lymphocytes were 99%, moderate smudge cells. INR 1.8. Sodium 142, potassium 6.1, now 4.5; BUN 15, creatinine 1.42, uric acid 6.2, calcium 8.7, phosphorus 4.0, AST 26, ALT 7, and LDH 342. Troponin 0.045. Albumin 4.2. IMAGING DATA: CT chest, abdomen, and pelvis per dissection protocol shows marked splenomegaly up to 20 cm in length and diffuse lymphadenopathy in the chest, abdomen, pelvis, and neck. ASSESSMENT AND PLAN: A 64-year-old female with CLL, status post BR chemotherapy in 2014, now presenting with recurrence of diffuse lymphadenopathy and extreme leukocytosis without any leukostasis. The patient's kidney function is at her baseline for the last eight months with very minimally increased LDH and uric acid, possibly mild spontaneous tumor lysis at this time. She is at high risk for treatment--related tumor lysis given extensive lymphadenopathy and white blood cell count and would recommend first dose of rituximab in the hospital with monitoring counts and can follow up in the outpatient setting for ongoing treatment of her CLL. Hopefully, we can titrate down her oxygen. She should continue on allopurinol with close attention to her uric acid level. I will increase her dose. I have discussed the case with Dr. Li and her prior oncologist, Dr. Whitney in [place]. I would consider starting her on Venetoclax or Acalabrutinib as an outpatient. Would probably avoid ibrutinib given her atrial fibrillation. Thank you for this consult. Job ID: [id number] MTDD
--- NOTE | 2019-05-21 08:38 | PDOC.MOPN ---
Interval History: Pt feeling better today. She walked down the [place] yesterday. Having problem with the CPAP mask at night. Currently not on oxygen. - Vital Signs Vital Signs: Vital Signs (12 hours) Temp Pulse Resp BP BP Pulse Ox 05/21/19 08:00 97.8 F 95 17 137/62 97 05/21/19 03:47 98.1 F 105 H 16 137/73 94 L Weight Weight 303 lb 3.2 oz - Physical Exam General: Alert, Oriented x3, Cooperative HEENT: EOMI Lungs: Normal air movement Cardiovascular: Regular rate Neurological: Cranial nerves 3-12 NL Psych/Mental Status: Mood NL - Labs Result Diagrams: 05/20/19 03:57 05/20/19 03:57 Lab results: Laboratory Results - last 24 hr 05/21/19 06:01: POC Glucose 90 05/20/19 20:42: POC Glucose 125 H 05/20/19 16:41: POC Glucose 111 H 05/20/19 14:43: POC Glucose 116 H 05/20/19 11:00: POC Glucose 107 05/19/19 11:11: Smear Path Review A/P - Problem (1) CLL (chronic lymphocytic leukemia) Current Visit: Yes Code(s): C91.10 - CHRONIC LYMPHOCYTIC LEUK OF B-CELL TYPE NOT ACHIEVE REMIS Status: Acute - Plan Plan: Plan Rituxan today Monitor Uric acid, K, Phos, Creatinine, LDH - IVF as needed Anticipate discharge in next couple days
[2019-05-21] MEDS ORDERED: Lisinopril 20 MG TAB PO SCH (09:00)
[2019-05-21] MEDS ORDERED: Allopurinol 100 MG TAB PO SCH (09:00)
[2019-05-21 09:04] LABS: Phosphorus 3.4 mg/dL (2.3-4.7)
[2019-05-21 09:09] LABS: Anion Gap 11 mmol/L (10-20); BUN (Urea Nitrogen) 15 mg/dL (9.8-20.1); Calc. Creatinine Clearance 102 mL/min (70-130); Calcium 8.6 mg/dL (7.8-10.44); Carbon Dioxide 28 mmol/L (23-31); Chloride 107 mmol/L (98-107); Estimated GFR-MDRD 53; Glucose 84 mg/dL (80-115); Sodium 141 mmol/L (136-145); Uric Acid 6.5 mg/dL (2.6-6.0)
[2019-05-21 09:12] LABS: Hemoglobin 8.4 g/dL (12.0-16.0); Mean Corpuscular Hemoglobin 25.5 pg (27.0-31.0); Mean Platelet Volume 7.7 fL (7.4-10.4); Platelet Count 139 thou/uL (130-400); RBC Distribution Width 16.2 % (11.5-14.5)
[2019-05-21] MEDS ORDERED: RITUXIMAB IVPB SCH (09:15)
[2019-05-21] MEDS ORDERED: Rituximab 100 MG in Sodium Chloride 0.9% 100 ML IVPB SCH (09:15)
[2019-05-21] MEDS ORDERED: SODIUM CHLORIDE 0.9% IVPB SCH (09:15)
[2019-05-21] MEDS: Allopurinol 300 MG TAB PO SCH ×2 (09:35→21:02)
[2019-05-21] MEDS: Loratadine 10 MG TAB PO SCH (09:35)
[2019-05-21] MEDS: Furosemide 20 MG TAB PO SCH (09:35)
[2019-05-21] MEDS: Montelukast Sodium 10 mg Tablet PO SCH (09:36)
[2019-05-21] MEDS: Rivaroxaban 10 MG TAB PO SCH (09:36)
[2019-05-21] MEDS: Pregabalin 50 MG CAP PO SCH ×3 (09:36→21:02)
[2019-05-21] MEDS: Acetaminophen 325 MG TAB PO PRN (09:37)
[2019-05-21 10:32] LABS: Lymphocytes 95 % (21-51); MDiff Complete? YES; Monocytes 1 % (0-10); Neutrophil 4 % (42-75); Platelet Morphology Comment Appears Adequate; Polychromasia SLIGHT = 2-3 cells (100X) (0-2/hpf)
--- NOTE | 2019-05-21 13:07 | PDOC.HOSPP ---
- Subjective Subjective: Pt sitting up in the bed eating and feeling well. - Objective Vital Signs & Weight: Vital Signs (12 hours) Temp Pulse Resp BP BP Pulse Ox 05/21/19 11:34 97.7 F 95 17 136/65 96 05/21/19 08:00 97.8 F 95 17 137/62 97 05/21/19 03:47 98.1 F 105 H 16 137/73 94 L Weight Weight 303 lb 3.2 oz I&O: 05/20/19 05/21/19 05/22/19 06:59 06:59 06:59 Intake Total 240 2160 Balance 240 2160 Result Diagrams: 05/21/19 08:15 05/21/19 08:15 Additional Labs: Accuchecks 05/21/19 05/20/19 05/20/19 06:01 20:42 16:41 POC Glucose 90 125 H 111 H 05/20/19 14:43 POC Glucose 116 H Hospitalist ROS - Medication Medications: Active Medications Generic Name Dose Route Start Last Admin Trade Name Freq PRN Reason Stop Dose Admin Acetaminophen 650 mg 05/19/19 17:19 05/21/19 09:37 Tylenol PO 650 mg Q4H PRN Administration Headache/Fever/Mild Pain (1-3) Allopurinol 300 mg 05/21/19 09:00 05/21/19 09:35 Zyloprim PO 300 mg BID FAIZA Administration Diltiazem HCl 240 mg 05/21/19 09:00 05/21/19 09:35 Cardizem Cd PO 240 mg DAILY FAIZA Administration Furosemide 20 mg 05/21/19 09:00 05/21/19 09:35 Lasix PO 20 mg DAILY FAIZA Administration Insulin Human Lispro 0 units 05/20/19 11:45 05/20/19 11:54 Humalog SC 3 unit .MILD SLIDING SCALE PRN Administration Mild Correctional Scale Lisinopril 20 mg 05/21/19 09:00 05/21/19 09:35 Zestril PO Not Given DAILY FAIZA Loratadine 10 mg 05/21/19 09:00 05/21/19 09:35 Claritin PO 10 mg DAILY FAIZA Administration Montelukast Sodium 10 mg 05/21/19 09:00 05/21/19 09:36 Singulair PO Not Given DAILY FAIZA Ondansetron HCl 4 mg 05/20/19 01:33 05/20/19 02:34 Zofran Odt PO 4 mg Q6H PRN Administration Nausea/Vomiting Pregabalin 50 mg 05/20/19 15:00 05/21/19 09:36 Lyrica PO 50 mg TID FAIZA Administration Rivaroxaban 20 mg 05/21/19 09:00 05/21/19 09:36 Xarelto PO 20 mg DAILY FAIZA Administration - Exam General Appearance: NAD, awake alert Neck - other findings: lymphadenopathy Heart: RRR, no murmur, no gallops, no rubs Respiratory: CTAB, no wheezes, no rales, no ronchi, normal chest expansion, no tachypnea Extremities: no edema Hosp A/P (1) Acute respiratory failure with hypoxia Code(s): J96.01 - ACUTE RESPIRATORY FAILURE WITH HYPOXIA Status: Acute (2) CLL (chronic lymphocytic leukemia) Code(s): C91.10 - CHRONIC LYMPHOCYTIC LEUK OF B-CELL TYPE NOT ACHIEVE REMIS Status: Acute (3) Afib Code(s): I48.91 - UNSPECIFIED ATRIAL FIBRILLATION Status: Acute (4) Gout Code(s): M10.9 - GOUT, UNSPECIFIED Status: Acute (5) Hyperkalemia Code(s): E87.5 - HYPERKALEMIA Status: Acute (6) HTN (hypertension) Code(s): I10 - ESSENTIAL (PRIMARY) HYPERTENSION Status: Acute (7) Diabetes mellitus Code(s): E11.9 - TYPE 2 DIABETES MELLITUS WITHOUT COMPLICATIONS Status: Acute (8) LAUREL (obstructive sleep apnea) Code(s): G47.33 - OBSTRUCTIVE SLEEP APNEA (ADULT) (PEDIATRIC) Status: Acute - Plan CLL: Will move patient downstairs to Onc for initiation of Rituxan. Peripheral smear showed significant lymphocytes, congruent with diagnosis of CLL. Oncology following and anticipate discharge in next couple of days. Acute hypoxic respiratory failure: Resolved. Etiology unclear. Patient stable off O2. CXR/CT show no evidence of acute pulmonary pathology. Some intra-thoracic lymphadenopathy, but no evidence of obstruction. Atrial Fibrillation: Converted to sinus rhythm. Hyperkalemia: Kayexalate given yesterday. Resolved. PT to ambulate patient. DVT Prophylaxis: On Xarelto PUB Prophylaxis: On Pepcid.
[2019-05-21] MEDS: Acetaminophen 500 MG TAB PO PRN (16:17)
[2019-05-21] MEDS: diphenhydrAMINE 25 MG in Sodium Chloride 0.9% 50 ML IVPB PRN (16:18)
[2019-05-21] MEDS: Ondansetron PF 4 MG/2 ML Vial IVP PRN (17:41)
[2019-05-21] MEDS ORDERED: Dexamethasone 10 MG/ML VIAL ONE (18:30)
[2019-05-21] MEDS ORDERED: Prochlorperazine 10 MG/2 ML VIAL IVP PRN (18:31)
[2019-05-21] MEDS ORDERED: Promethazine HCl 25 MG/ML VIAL SLOW IVP SCH (18:45)
[2019-05-21] MEDS ORDERED: Dexamethasone 10 MG/ML VIAL SLOW IVP SCH (18:45)
[2019-05-22 05:04] LABS: Anion Gap 12 mmol/L (10-20); BUN (Urea Nitrogen) 23 mg/dL (9.8-20.1); Calc. Creatinine Clearance 86 mL/min (70-130); Calcium 8.2 mg/dL (7.8-10.44); Carbon Dioxide 25 mmol/L (23-31); Chloride 105 mmol/L (98-107); Estimated GFR-MDRD 44; Glucose 203 mg/dL (80-115); Sodium 135 mmol/L (136-145); Uric Acid 6.3 mg/dL (2.6-6.0)
[2019-05-22 05:24] LABS: Potassium 7.4 mmol/L (3.5-5.1)
[2019-05-22 05:26] LABS: Phosphorus 5.7 mg/dL (2.3-4.7)
[2019-05-22] MEDS ORDERED: Dextrose 50% Abboject 50 ML SYRINGE SLOW IVP SCH (05:30)
[2019-05-22] MEDS ORDERED: Calcium Gluconate 100 MG/ML 10 ML IVPB SCH (05:30)
[2019-05-22] MEDS ORDERED: Insulin Regular 300 UNITS/3 ML VIAL IVP SCH (05:30)
[2019-05-22] MEDS ORDERED: Furosemide 40 MG/4 ML VIAL SLOW IVP SCH (05:45)
[2019-05-22] MEDS ORDERED: Dextrose 50 % In Water 50 ML SYRINGE ONE (05:52)
[2019-05-22] MEDS ORDERED: Calcium Gluconate 4.6 MEQ in Sodium Chloride 0.9% 100 ML IVPB SCH (06:00)
[2019-05-22 06:09] LABS: Anisocytosis SLIGHT = 6-15 cells (100X) (0-5/hpf); Band 1 % (5-11); Hemoglobin 8.8 g/dL (12.0-16.0); Lymphocytes 93 % (21-51); MDiff Complete? YES; Mean Corpuscular HGB CONC 29.3 g/dL (32.0-36.0); Mean Corpuscular Hemoglobin 26.3 pg (27.0-31.0); Mean Platelet Volume 8.3 fL (7.4-10.4); Monocytes 2 % (0-10); Neutrophil 4 % (42-75); Platelet Count 131 thou/uL (130-400); RBC Distribution Width 16.3 % (11.5-14.5); Red Blood Cell (RBC) Count 3.43 mill/uL (4.20-5.40)
[2019-05-22] MEDS: Ondansetron PF 4 MG/2 ML Vial IVP PRN (06:21)
--- NOTE | 2019-05-22 07:47 | PDOC.HOSPP ---
- Subjective Subjective: Had N/V with the introduction of the Rituxan. Currently aggravated because she has not been able to sleep and wants to be left alone so that she can. - Objective Vital Signs & Weight: Vital Signs (12 hours) Temp Pulse Resp BP Pulse Ox 05/22/19 06:22 98.2 F 106 H 24 H 137/70 98 05/22/19 03:43 98.4 F 96 16 120/65 96 05/21/19 23:45 98.0 F 100 22 H 100/52 L 94 L 05/21/19 23:15 98.0 F 102 H 24 H 114/56 L 96 05/21/19 22:40 98.2 F 112 H 32 H 117/53 L 93 L 05/21/19 20:30 95 05/21/19 20:00 98.9 F 113 H 24 H 124/58 L 95 Weight Weight 303 lb I&O: 05/21/19 05/22/19 05/23/19 06:59 06:59 06:59 Intake Total 2160 702 Output Total 100 750 Balance 2160 602 -750 Result Diagrams: 05/22/19 04:22 05/22/19 04:22 Additional Labs: Accuchecks 05/22/19 05/22/19 05/21/19 06:39 04:26 20:28 POC Glucose 216 H 197 H 130 H 05/21/19 05/21/19 16:23 10:55 POC Glucose 111 H 100 Hospitalist ROS - Medication Medications: Active Medications Generic Name Dose Route Start Last Admin Trade Name Freq PRN Reason Stop Dose Admin Acetaminophen 650 mg 05/19/19 17:19 05/21/19 09:37 Tylenol PO 650 mg Q4H PRN Administration Headache/Fever/Mild Pain (1-3) Acetaminophen 1,000 mg 05/21/19 09:02 05/21/19 16:17 Tylenol PO 1,000 mg WILLCALL PRN Administration Headache/Fever or Pain Allopurinol 300 mg 05/21/19 09:00 05/21/19 21:02 Zyloprim PO 300 mg BID FAIZA Administration Diltiazem HCl 240 mg 05/21/19 09:00 05/21/19 09:35 Cardizem Cd PO 240 mg DAILY FAIZA Administration Furosemide 20 mg 05/21/19 09:00 05/21/19 09:35 Lasix PO 20 mg DAILY FAIZA Administration Diphenhydramine HCl 25 mg/ 50.5 mls @ 151.5 mls/hr 05/21/19 09:02 05/21/19 16 :18 Sodium Chloride IVPB 50.5 mls WILLCALL PRN Administration Itching & Insomnia Rituximab 100 mg/ Sodium 110 mls @ 0 mls/hr 05/21/19 09:15 05/21/19 16:56 Chloride IVPB 110 mls WILLCALL FAIZA Administration As Directed Calcium Gluconate 4.6 meq/ 110 mls @ 220 mls/hr 05/22/19 06:00 05/22/19 06:16 Sodium Chloride IVPB 05/22/19 08:00 110 mls NOW FAIZA Administration Insulin Human Lispro 0 units 05/20/19 11:45 05/20/19 11:54 Humalog SC 3 unit .MILD SLIDING SCALE PRN Administration Mild Correctional Scale Loratadine 10 mg 05/21/19 09:00 05/21/19 09:35 Claritin PO 10 mg DAILY FAIZA Administration Montelukast Sodium 10 mg 05/21/19 09:00 05/21/19 09:36 Singulair PO Not Given DAILY FAIZA Ondansetron HCl 4 mg 05/20/19 01:33 05/20/19 02:34 Zofran Odt PO 4 mg Q6H PRN Administration Nausea/Vomiting Ondansetron HCl 4 mg 05/20/19 01:33 05/22/19 06:21 Zofran IVP 4 mg Q6H PRN Administration Nausea/Vomiting Pregabalin 50 mg 05/20/19 15:00 05/21/19 21:02 Lyrica PO 50 mg TID FAIZA Administration Prochlorperazine Edisylate 5 mg 05/21/19 18:31 05/21/19 22:06 Compazine IVP 5 mg Q4H PRN Administration Nausea/Vomiting Rivaroxaban 20 mg 05/21/19 09:00 05/21/19 09:36 Xarelto PO 20 mg DAILY FAIZA Administration - Exam General - other findings: Sleeping, easily awakened. Appropriate Heart: RRR, no murmur, no gallops, no rubs, normal peripheral pulses Heart - other findings: Tachycardia Respiratory: CTAB, no wheezes, no rales, tachypneic Gastrointestinal: soft, non-tender, non-distended Extremities: no cyanosis, 1+ LE edema Skin: normal turgor Psychiatric: somnolent (But awakens and appropriate) Hosp A/P (1) Acute respiratory failure with hypoxia Code(s): J96.01 - ACUTE RESPIRATORY FAILURE WITH HYPOXIA Status: Acute (2) CLL (chronic lymphocytic leukemia) Code(s): C91.10 - CHRONIC LYMPHOCYTIC LEUK OF B-CELL TYPE NOT ACHIEVE REMIS Status: Acute (3) Afib Code(s): I48.91 - UNSPECIFIED ATRIAL FIBRILLATION Status: Acute (4) Gout Code(s): M10.9 - GOUT, UNSPECIFIED Status: Acute (5) Hyperkalemia Code(s): E87.5 - HYPERKALEMIA Status: Acute (6) HTN (hypertension) Code(s): I10 - ESSENTIAL (PRIMARY) HYPERTENSION Status: Acute (7) Diabetes mellitus Code(s): E11.9 - TYPE 2 DIABETES MELLITUS WITHOUT COMPLICATIONS Status: Acute (8) LAUREL (obstructive sleep apnea) Code(s): G47.33 - OBSTRUCTIVE SLEEP APNEA (ADULT) (PEDIATRIC) Status: Acute (9) Nausea & vomiting Code(s): R11.2 - NAUSEA WITH VOMITING, UNSPECIFIED Status: Acute - Plan Severe hyperkalemia: Had Dextrose and Insulin, Calcium Gluconate, Lasix given. Stat EKG now. Repeating K+ now stat. Called lab to ensure it was stat. Will transfer to [facility] or [facility] pending the results. CLL: Rituxan initiated. Appeared to have N/V in response. Peripheral smear showed significant lymphocytes, congruent with diagnosis of CLL. Acute hypoxic respiratory failure: Most likely related to the intrathoracic NANCI from CLL. Back on oxygen for now. CXR/CT show no evidence of acute pulmonary pathology. Atrial Fibrillation: Converted to sinus rhythm. Repeat EKG last night with tachycardia only showed sinus tach. PT to ambulate patient. DVT Prophylaxis: On Xarelto PUB Prophylaxis: On Pepcid.
[2019-05-22] MEDS: Furosemide 20 MG TAB PO SCH (07:53)
[2019-05-22] MEDS: Montelukast Sodium 10 mg Tablet PO SCH (07:53)
[2019-05-22] MEDS: Allopurinol 300 MG TAB PO SCH ×2 (07:53→20:33)
[2019-05-22] MEDS: Loratadine 10 MG TAB PO SCH (07:54)
[2019-05-22] MEDS: Pregabalin 50 MG CAP PO SCH ×3 (07:54→20:34)
[2019-05-22] MEDS ORDERED: Sodium Chloride 0.9% 500 ML IV SCH (08:00)
[2019-05-22 08:04] LABS: Anion Gap 14 mmol/L (10-20); BUN (Urea Nitrogen) 25 mg/dL (9.8-20.1); Calc. Creatinine Clearance 82 mL/min (70-130); Calcium 8.8 mg/dL (7.8-10.44); Carbon Dioxide 26 mmol/L (23-31); Chloride 107 mmol/L (98-107); Estimated GFR-MDRD 41; Glucose 175 mg/dL (80-115); Potassium 6.4 mmol/L (3.5-5.1); Sodium 141 mmol/L (136-145)
[2019-05-22] MEDS: Rivaroxaban 10 MG TAB PO SCH (09:09)
[2019-05-22] MEDS: Sodium Chloride 0.9% 1,000 ML IV SCH ×2 (10:37→20:33)
[2019-05-22 10:38] LABS: Anion Gap 17 mmol/L (10-20); BUN (Urea Nitrogen) 24 mg/dL (9.8-20.1); Calc. Creatinine Clearance 86 mL/min (70-130); Calcium 8.7 mg/dL (7.8-10.44); Carbon Dioxide 23 mmol/L (23-31); Chloride 107 mmol/L (98-107); Estimated GFR-MDRD 43; Glucose 196 mg/dL (80-115); Potassium 5.7 mmol/L (3.5-5.1); Sodium 141 mmol/L (136-145)
--- NOTE | 2019-05-22 14:38 | PDOC.MOPN ---
Interval History: Patient had severe n/v from test dose Rituxan. Full dose not given. - Vital Signs Vital Signs: Vital Signs (12 hours) Temp Pulse Resp BP BP BP Pulse Ox 05/22/19 10:20 98.6 F 104 H 16 139/66 98 05/22/19 08:00 98.4 F 100 20 134/64 93 L 05/22/19 07:53 104 H 134/64 05/22/19 06:22 98.2 F 106 H 24 H 137/70 98 05/22/19 03:43 98.4 F 96 16 120/65 96 Weight Weight 303 lb - Physical Exam General: Alert, Oriented x3, No acute distress HEENT: Atraumatic, PERRLA, EOMI, Mucous membr. moist/pink Lungs: Clear to auscultation, Normal air movement Cardiovascular: Regular rate, Normal S1, Normal S2, No murmurs, Gallops, Rubs Abdomen: Normal bowel sounds, Soft, No tenderness, No hepatospenomegaly, No masses Extremities: No clubbing, No cyanosis, No edema, Normal pulses, No tenderness/ swelling Skin: No rashes, No breakdown, No significant lesion Neurological: Normal speech - Labs Result Diagrams: 05/22/19 04:22 05/22/19 09:58 Lab results: Laboratory Results - last 24 hr 05/22/19 09:58: Sodium 141, Potassium 5.7 H, Chloride 107, Carbon Dioxide 23, Anion Gap 17, BUN 24 H, Creatinine 1.48 H, Estimated GFR (MDRD) 43, Glucose 196 H, Calcium 8.7 05/22/19 07:27: Sodium 141, Potassium 6.4 H, Chloride 107, Carbon Dioxide 26, Anion Gap 14, BUN 25 H, Creatinine 1.54 H, Estimated GFR (MDRD) 41, Glucose 175 H, Calcium 8.8 05/22/19 06:39: POC Glucose 216 H 05/22/19 04:26: POC Glucose 197 H 05/22/19 04:22: Phosphorus 5.7 H 05/22/19 04:22: WBC 386.0 H*, RBC 3.43 L, Hgb 8.8 L, Hct 29.8 L, MCV 90.0, MCH 26.3 L, MCHC 29.3 L, RDW 16.3 H, Plt Count 131, MPV 8.3, Neutrophils % (Manual) 4 L, Band Neuts % (Manual) 1 L, Lymphocytes % (Manual) 93 H, Monocytes % (Manual ) 2, Smudge Cells SLIGHT, Anisocytosis SLIGHT = 6-15 cells 05/22/19 04:22: Lactate Dehydrogenase 539 H 05/22/19 04:22: Sodium 135 L, Potassium 7.4 H*, Chloride 105, Carbon Dioxide 25 , Anion Gap 12, BUN 23 H, Creatinine 1.47 H, Estimated GFR (MDRD) 44, Glucose 203 H, Uric Acid 6.3 H, Calcium 8.2 05/21/19 20:28: POC Glucose 130 H 05/21/19 16:23: POC Glucose 111 H 05/21/19 10:55: POC Glucose 100 05/21/19 08:15: WBC 384.0 H* 05/19/19 18:00: Haptoglobin 98 Status: lab reviewed by me A/P - Problem (1) CLL (chronic lymphocytic leukemia) Current Visit: Yes Code(s): C91.10 - CHRONIC LYMPHOCYTIC LEUK OF B-CELL TYPE NOT ACHIEVE REMIS Status: Acute (2) Hyperkalemia Current Visit: Yes Code(s): E87.5 - HYPERKALEMIA Status: Acute - Plan Plan: Plan to hold rituxan today for hyperkalemia Will need full dose prior to discharge Discussed with Dr. Weiss
--- NOTE | 2019-05-22 16:39 | CON ---
DATE OF CONSULTATION: HISTORY OF PRESENT ILLNESS: Ms. Vaughn is a 64-year-old black female, who was initially admitted for shortness of breath and right-sided chest pain. She was found to have possible recurrence of her CLL. She is undergoing chemotherapy. We are now being consulted for her elevated creatinine as well as high potassium. She has received several doses of Kayexalate, insulin, and sodium bicarbonate. Potassium is actually improving. She continues to have a bowel movement, which suggests that the Kayexalate is getting to be effective. REVIEW OF SYSTEMS: Positive for right rib pain. No nausea. No vomiting. Currently, no shortness of breath. Positive for diarrhea. No constipation. No nausea. No vomiting. No headache. No diplopia. No productive cough. No fever or chills. MEDICATIONS: Currently on: 1. Allopurinol 300 mg once a day. 2. Status post calcium gluconate. 3. Diltiazem 240 mg tablet once a day. 4. Furosemide 20 mg daily. 5. Status post normal saline. 6. Rituximab as directed. 7. Status post Kayexalate. PAST MEDICAL HISTORY: 1. CLL. 2. Hypertension, atrial fibrillation, CHF. PAST SURGICAL HISTORY: Status post hysterectomy, status post thyroidectomy, status post hernia repair of the midline surgical scar, and status post colonoscopy. SOCIAL HISTORY: The patient is single, lives in [place], one child. 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 Education, 1-1/2 years college. No IV drug abuse. Occasional alcohol. ALLERGIES: NONE. TRAUMA: None. IMMUNIZATIONS: Not up-to-date. HOSPITALIZATIONS: Please see past medical history. FAMILY HISTORY: No family history of ESRD. PHYSICAL EXAMINATION: VITAL SIGNS: Blood pressure is 134/64, pulse ox 93% on 3 L, heart rate 100, and temperature 98.4. GENERAL: Awake, alert, and comfortable, not in overt distress, obese. SKIN: Adequate turgor. HEENT: Pinkish conjunctivae. Anicteric sclerae. NECK: No neck mass. No carotid bruits. No JVD. CHEST: No deformities. LUNGS: Decreased breath sounds. HEART: Normal sinus rhythm. No murmur. No gallops. No rubs. ABDOMEN: Globular, soft, and nontender. No masses. EXTREMITIES: No edema. No deformities. LABORATORY DATA: Laboratories of May 20, 2019; BUN 15, creatinine 1.42. On May 22, 2019; sodium 141, potassium 6.4, chloride 107, carbon dioxide 26, BUN 25, creatinine 1.54, calcium 8.8. On May 20, 2019, cardiac echo showed an EF of 60% to 65%. ASSESSMENT AND PLAN: 1. Acute kidney injury - consider hemodynamically-mediated renal dysfunction. We will start normal saline at 100 mL an hour. Agree to hold off lisinopril with this patient. P.r.n. Lasix. 2. Hyperkalemia, multifactorial etiology. Please note that the patient's white count was noted at 384,000, which could contribute to the hyperkalemia - this leukocytosis will increase serum potassium. In addition, she was taking lisinopril. The said lisinopril is on hold. Agree with p.r.n. Kayexalate, calcium gluconate, and sodium bicarbonate as well as D50 and insulin. Potassium is improved from 7.4 to a most recent value of 6.4. She has no EKG changes. Agree with current management. There is no indication for any dialytic intervention. Recheck basic metabolic and CBC in a.m. Job ID: [id number]
[2019-05-22] MEDS: HumaLOG 300 UNITS/3 ML VIAL SC PRN (17:29)
[2019-05-22] MEDS ORDERED: HumaLOG 300 UNITS/3 ML VIAL SC PRN (20:49)
[2019-05-23 04:57] LABS: Anion Gap 13 mmol/L (10-20); BUN (Urea Nitrogen) 26 mg/dL (9.8-20.1); Calc. Creatinine Clearance 93 mL/min (70-130); Calcium 7.7 mg/dL (7.8-10.44); Carbon Dioxide 24 mmol/L (23-31); Chloride 107 mmol/L (98-107); Estimated GFR-MDRD 48; Glucose 123 mg/dL (80-115); Potassium 5.3 mmol/L (3.5-5.1); Sodium 139 mmol/L (136-145); Uric Acid 5.8 mg/dL (2.6-6.0)
[2019-05-23 05:07] LABS: Hemoglobin 7.8 g/dL (12.0-16.0); Mean Corpuscular Hemoglobin 27.5 pg (27.0-31.0); Mean Corpuscular Volume 91.7 fL (78.0-98.0); Mean Platelet Volume 8.1 fL (7.4-10.4); Platelet Count 116 thou/uL (130-400); RBC Distribution Width 16.3 % (11.5-14.5); Red Blood Cell (RBC) Count 2.83 mill/uL (4.20-5.40)
[2019-05-23 05:18] LABS: Phosphorus 4.5 mg/dL (2.3-4.7)
[2019-05-23] MEDS: Sodium Chloride 0.9% 1,000 ML IV SCH ×2 (05:26→17:50)
[2019-05-23 05:58] LABS: Anisocytosis SLIGHT = 6-15 cells (100X) (0-5/hpf); Band 3 % (5-11); Lymphocytes 93 % (21-51); MDiff Complete? YES; Monocytes 2 % (0-10); Neutrophil 2 % (42-75); Platelet Morphology Comment Appears Decreased
[2019-05-23] MEDS: Montelukast Sodium 10 mg Tablet PO SCH (08:46)
[2019-05-23] MEDS: Rivaroxaban 10 MG TAB PO SCH (08:46)
[2019-05-23] MEDS: Pregabalin 50 MG CAP PO SCH ×3 (08:46→21:03)
[2019-05-23] MEDS: Furosemide 20 MG TAB PO SCH (08:46)
[2019-05-23] MEDS: Loratadine 10 MG TAB PO SCH (08:46)
[2019-05-23] MEDS: Allopurinol 300 MG TAB PO SCH ×2 (08:47→21:05)
[2019-05-23] MEDS: Acetaminophen 500 MG TAB PO PRN (13:13)
--- NOTE | 2019-05-23 18:51 | PDOC.HOSPP ---
- Subjective Encounter Date: 05/23/19 Encounter Time: 18:00 Subjective: CC: f/u leukemia The patient denies fevers, chills. She originally came to the hospital due to shortness of breath. She is eating a diet and tolerating it well. She states that she was told by oncologist she may be here until Saturday She says her legs are swollen and she has gout attack in left leg which is getting better - Objective Vital Signs & Weight: Vital Signs (12 hours) Temp Pulse Resp BP BP Pulse Ox 05/23/19 16:04 98.0 F 83 20 127/61 99 05/23/19 11:40 97.4 F L 86 20 145/65 H 100 05/23/19 08:47 84 05/23/19 07:50 97.4 F L 84 20 137/67 100 Weight Weight 303 lb I&O: 05/22/19 05/23/19 05/24/19 06:59 06:59 06:59 Intake Total 702 4060 Output Total 100 750 Balance 602 3310 Result Diagrams: 05/23/19 04:14 05/23/19 04:14 Additional Labs: Accuchecks 05/23/19 05/23/19 05/23/19 16:45 10:44 05:06 POC Glucose 120 H 125 H 144 H 05/22/19 20:38 POC Glucose 224 H Hospitalist ROS - Review of Systems Constitutional: denies: fever, chills - Medication Medications: Active Medications Generic Name Dose Route Start Last Admin Trade Name Freq PRN Reason Stop Dose Admin Acetaminophen 650 mg 05/19/19 17:19 05/21/19 09:37 Tylenol PO 650 mg Q4H PRN Administration Headache/Fever/Mild Pain (1-3) Acetaminophen 1,000 mg 05/21/19 09:02 05/23/19 13:13 Tylenol PO 1,000 mg WILLCALL PRN Administration Headache/Fever or Pain Allopurinol 300 mg 05/21/19 09:00 05/23/19 08:47 Zyloprim PO 300 mg BID FAIZA Administration Diltiazem HCl 240 mg 05/21/19 09:00 05/23/19 08:47 Cardizem Cd PO 240 mg DAILY FAIZA Administration Furosemide 20 mg 05/21/19 09:00 05/23/19 08:46 Lasix PO 20 mg DAILY FAIZA Administration Diphenhydramine HCl 25 mg/ 50.5 mls @ 151.5 mls/hr 05/21/19 09:02 05/21/19 16 :18 Sodium Chloride IVPB 50.5 mls WILLCALL PRN Administration Itching & Insomnia Rituximab 100 mg/ Sodium 110 mls @ 0 mls/hr 05/21/19 09:15 05/21/19 16:56 Chloride IVPB 110 mls WILLCALL FAIZA Administration As Directed Sodium Chloride 1,000 mls @ 100 mls/hr 05/22/19 10:00 05/23/19 17:50 Normal Saline 0.9% IV 1,000 mls .Q10H FAIZA Administration Insulin Human Lispro 0 units 05/20/19 11:45 05/22/19 17:29 Humalog SC 3 unit .MILD SLIDING SCALE PRN Administration Mild Correctional Scale Insulin Human Lispro 0 units 05/22/19 20:49 05/22/19 20:59 Humalog SC 2 unit .BEDTIME SLIDING SC PRN Administration Bedtime Correctional Scale Loratadine 10 mg 05/21/19 09:00 05/23/19 08:46 Claritin PO 10 mg DAILY FAIZA Administration Montelukast Sodium 10 mg 05/21/19 09:00 05/23/19 08:46 Singulair PO 10 mg DAILY FAIZA Administration Ondansetron HCl 4 mg 05/20/19 01:33 05/20/19 02:34 Zofran Odt PO 4 mg Q6H PRN Administration Nausea/Vomiting Ondansetron HCl 4 mg 05/20/19 01:33 05/22/19 06:21 Zofran IVP 4 mg Q6H PRN Administration Nausea/Vomiting Pregabalin 50 mg 05/20/19 15:00 05/23/19 14:44 Lyrica PO 50 mg TID FAIZA Administration Prochlorperazine Edisylate 5 mg 05/21/19 18:31 05/21/19 22:06 Compazine IVP 5 mg Q4H PRN Administration Nausea/Vomiting Rivaroxaban 20 mg 05/21/19 09:00 05/23/19 08:46 Xarelto PO 20 mg DAILY FAIZA Administration - Exam General Appearance: NAD, awake alert Eye: PERRL, anicteric sclera ENT: normocephalic atraumatic, no oropharyngeal lesions Neck: supple, symmetric, no JVD, no thyromegaly Heart: RRR, no murmur, no gallops, no rubs Respiratory: CTAB, no wheezes, no rales, no ronchi Gastrointestinal: soft Gastrointestinal - other findings: palpable splenomegaly Extremities: 2+ LE edema (erythema on left leg which is tender to palpation) Neurological: cranial nerve grossly intact, normal sensation to touch, no focal deficits, no new deficit Hosp A/P - Plan CTA Abdomen: massive periaortic, aortocaval, gastrohepatic, peripancreatic, mesenteric lymphadenopathy extending into iliac chain. Splenomegaly CTA chest: massive bilateral axillary and medistinal LAD with markedly enlarged mediastinal nodes, small hilar nodes. Large left t hyroid lobe nodule Chest X ray: mediastinal widening ECHO: EF 60-65%, normal diastolic function This is a 64 year old female with history of CLL who presented with shortness of breath Acute hypoxic respiratory failure secondary to CLL - CTA chest shows no PE or nodules. Likely from lymphoma - received rituxan but held due to excessive nausea/vomiting - currently on oxygen, will need home oxygen evaluation prior to discharge - WBC down to 312 #Hyperkalemia - improved. Potassium 5.3, given kayexelate today, will recehck tomorrow #Acute Kidney Injury - imporved down to 1.36 #Atrial fibrillation - continue xarelto - continue diltiazem #Gout #Peripheral edema - continue allopurinol - will d/c lasix due to gout. ECHO shows normal diastolic function - check bilateral dopplers. Left leg seems to be more red and tender may be from gout #Type II diabetes - continue insulin sliding scale LAUREL - on CPAP at night Code status: full code
--- NOTE | 2019-05-23 20:06 | PRG ---
DATE OF SERVICE: 05/23/2019 SUBJECTIVE: Ms. Vaughn is a 64-year-old black female who was seen by the Renal Service for her hyperkalemia as well as acute kidney injury. Potassium was much improved. In addition, she was given volume repletion which improved her renal function. She actually is receiving Rituxan from her oncologist for underlying CLL. No new complaints today. No chest pain or shortness of breath. OBJECTIVE: VITAL SIGNS: Blood pressure is 127/61, heart rate 83, respiratory rate 20, temperature 98, and pulse ox 99%. GENERAL: Awake, alert, supine, obese, not in distress. SKIN: Adequate turgor. HEENT: She has slightly pale conjunctivae. Anicteric sclerae. NECK: No neck mass. No carotid bruits. No JVD. CHEST: No deformities. LUNGS: Clear breath sounds. No wheezing. No crackles. HEART: Normal sinus rhythm. No murmurs, gallops, or rubs. ABDOMEN: Globular, soft, nontender. No masses. EXTREMITIES: No edema. No deformities. MEDICATIONS: Medications of May 23, 2019, were reviewed. LABORATORY DATA: Laboratories of May 23, 2019; white count 312,000, hemoglobin 7.8. Sodium 139, potassium 5.3, chloride 107, carbon dioxide 24, BUN 26, creatinine 1.36, glucose 123, calcium 7.7, LDH 326. ASSESSMENT AND PLAN: 1. Acute kidney injury - superimposed hemodynamically-mediated renal dysfunction. Much improved with empiric volume repletion. Continue to hold off diuretics or any PREET inhibitors. Hold off nonsteroidal anti-inflammatory drugs. 2. Hyperkalemia, resolved. As previously mentioned, the leukocytosis can also contribute to some degree of hyperkalemia with this patient. 3. Chronic lymphocytic leukemia, currently being managed by her oncologist. We will recheck basic metabolic profile and CBC in a.m. Job ID: [id number]
[2019-05-24] MEDS: Sodium Chloride 0.9% 1,000 ML IV SCH ×2 (03:34→15:43)
[2019-05-24 04:58] LABS: Anion Gap 13 mmol/L (10-20); BUN (Urea Nitrogen) 21 mg/dL (9.8-20.1); Calc. Creatinine Clearance 122 mL/min (70-130); Carbon Dioxide 25 mmol/L (23-31); Chloride 109 mmol/L (98-107); Estimated GFR-MDRD 65; Glucose 88 mg/dL (80-115); Phosphorus 3.7 mg/dL (2.3-4.7); Potassium 5.6 mmol/L (3.5-5.1); Sodium 141 mmol/L (136-145); Uric Acid 4.8 mg/dL (2.6-6.0)
[2019-05-24 05:22] LABS: Thyroid Stimulating Hormone 2.9651 uIU/mL (0.35-4.94)
[2019-05-24 06:43] LABS: Band 1 % (5-11); Hemoglobin 8.2 g/dL (12.0-16.0); Lymphocytes 93 % (21-51); MDiff Complete? YES; Mean Corpuscular HGB CONC 30.2 g/dL (32.0-36.0); Mean Corpuscular Hemoglobin 27.5 pg (27.0-31.0); Mean Corpuscular Volume 91.1 fL (78.0-98.0); Mean Platelet Volume 8.5 fL (7.4-10.4); Monocytes 2 % (0-10); Neutrophil 4 % (42-75); Platelet Count 117 thou/uL (130-400); Red Blood Cell (RBC) Count 2.96 mill/uL (4.20-5.40)
[2019-05-24] MEDS ORDERED: Insulin Regular 300 UNITS/3 ML VIAL IVP SCH ×2 (07:45→15:45)
[2019-05-24] MEDS ORDERED: Dextrose 50% Abboject 50 ML SYRINGE SLOW IVP SCH (07:45)
[2019-05-24] MEDS: Allopurinol 300 MG TAB PO SCH ×2 (08:44→20:10)
[2019-05-24] MEDS: Montelukast Sodium 10 mg Tablet PO SCH (08:44)
[2019-05-24] MEDS: Pregabalin 50 MG CAP PO SCH ×3 (08:44→20:09)
[2019-05-24] MEDS: Rivaroxaban 10 MG TAB PO SCH (08:44)
[2019-05-24] MEDS: Folic Acid 1 MG TAB PO SCH (08:44)
[2019-05-24] MEDS: Loratadine 10 MG TAB PO SCH (08:44)
--- NOTE | 2019-05-24 09:39 | ULT ---
EXAM: Bilateral lower extremity venous Doppler PROVIDED CLINICAL HISTORY: Pain FINDINGS: Grayscale and color Doppler sonography with spectral analysis was performed of the common femoral, fe moral, popliteal, posterior tibial, greater saphenous and profunda femoral veins bilaterally. The evaluated venous structures demonstrate a normal sonographic appearance. IMPRESSION: No sonographic evidence for lower extremity deep venous thrombosis.
--- NOTE | 2019-05-24 10:37 | PRG ---
DATE OF SERVICE: 05/24/2019 SUBJECTIVE: Ms. Vaughn is a 64-year-old black female with known history of CLL and was seen by the Renal Service for hyperkalemia and acute kidney injury. Serum potassium is much improved. She was also volume depleted and renal function is dramatically improved with IV hydration. Hyperkalemia, I feel that is being contributed by her leukocytosis. She has white count of 330,000. Oncology is following her for CLL. No other complaints. No chest pain or shortness of breath. OBJECTIVE: VITAL SIGNS: Blood pressure 134/74, heart rate 91, respiratory rate 20, temperature 98.1, and pulse ox 96% - room air. GENERAL: Awake, alert, comfortable, supine, obese, not in distress. SKIN: Adequate turgor. HEENT: Slightly pale conjunctivae. Anicteric sclerae. NECK: No neck mass. No carotid bruits. No JVD. CHEST: No deformities. LUNGS: Clear breath sounds. No wheezing. No crackles. HEART: Normal sinus rhythm. No murmur. No gallops. No rubs. ABDOMEN: Globular, soft, and nontender. No masses. EXTREMITIES: No edema. No deformities. MEDICATIONS: Medications of May 24, 2019, was reviewed. LABORATORY DATA: Laboratories of May 24, 2019; white count 330,000, hemoglobin 8.2. Sodium 141, potassium 5.6, chloride 109, carbon dioxide 25, BUN 21, creatinine 1.04, GFR 65 mL/minute, calcium 8.0, and uric acid is 4.8. TSH 2.9. Vitamin B12 of 294. LDH 273. ASSESSMENT AND PLAN: 1. Chronic lymphocytic leukemia - the patient being managed by Oncology. 2. Acute kidney injury - hemodynamically-mediated renal dysfunction, much improved with IV hydration. No indication for any dialytic intervention. 3. Mild hyperkalemia - I think the significant leukocytosis is contributing to the hyperkalemia. I have decided to place her on Kayexalate at 15 g every 3rd day together with lactulose at 30 g every 3rd day also. I agree with current management. Recheck basic metabolic profile and CBC in a.m. Job ID: [id number]
[2019-05-24] MEDS: Acetaminophen 500 MG TAB PO PRN (10:54)
[2019-05-24] MEDS ORDERED: Triple Antibiotic Oint 1 GM Packet TOP PRN (13:27)
[2019-05-24 14:26] LABS: Potassium 6.7 mmol/L (3.5-5.1)
[2019-05-24 15:29] LABS: Potassium 5.3 mmol/L (3.5-5.1)
[2019-05-24] MEDS ORDERED: Dextrose 50% Abboject 50 ML SYRINGE SLOW IVP PRN (15:41)
--- NOTE | 2019-05-24 15:43 | PDOC.HOSPP ---
- Subjective Encounter Date: 05/24/19 Encounter Time: 14:00 Subjective: CC: lymphoma, hyperkalemia The patient states she is doing fine, just anxious to take a bath. Has dyspnea on exertion. No chest pain, palpitations, nausea/vomiting. No fevers or chills The patient states her leg pain is better. Dopplers negative for DVT - Objective Vital Signs & Weight: Vital Signs (12 hours) Temp Pulse Resp BP Pulse Ox 05/24/19 12:00 97.9 F 90 16 146/70 H 95 05/24/19 11:52 98.7 F 91 20 120/57 L 99 05/24/19 08:44 91 05/24/19 07:30 98.1 F 91 20 134/74 96 05/24/19 04:00 98.0 F 89 15 143/67 H 94 L Weight Weight 303 lb I&O: 05/23/19 05/24/19 05/25/19 06:59 06:59 06:59 Intake Total 4060 Output Total 750 Balance 3310 Result Diagrams: 05/24/19 04:17 05/24/19 14:50 Additional Labs: Accuchecks 05/24/19 05/24/19 05/23/19 11:11 05:45 20:29 POC Glucose 87 93 161 H 05/23/19 16:45 POC Glucose 120 H Hospitalist ROS - Review of Systems Constitutional: denies: fever, chills Cardiovascular: denies: chest pain, palpitations Gastrointestinal: denies: nausea, vomiting - Medication Medications: Active Medications Generic Name Dose Route Start Last Admin Trade Name Freq PRN Reason Stop Dose Admin Acetaminophen 650 mg 05/19/19 17:19 05/21/19 09:37 Tylenol PO 650 mg Q4H PRN Administration Headache/Fever/Mild Pain (1-3) Acetaminophen 1,000 mg 05/21/19 09:02 05/24/19 10:54 Tylenol PO 1,000 mg WILLCALL PRN Administration Headache/Fever or Pain Allopurinol 300 mg 05/21/19 09:00 05/24/19 08:44 Zyloprim PO 300 mg BID FAIZA Administration Diltiazem HCl 240 mg 05/21/19 09:00 05/24/19 08:44 Cardizem Cd PO 240 mg DAILY FAIZA Administration Folic Acid 1 mg 05/24/19 09:00 05/24/19 08:44 Folvite PO 1 mg DAILY FAIZA Administration Diphenhydramine HCl 25 mg/ 50.5 mls @ 151.5 mls/hr 05/21/19 09:02 05/21/19 16 :18 Sodium Chloride IVPB 50.5 mls WILLCALL PRN Administration Itching & Insomnia Rituximab 100 mg/ Sodium 110 mls @ 0 mls/hr 05/21/19 09:15 05/21/19 16:56 Chloride IVPB 110 mls WILLCALL FAIZA Administration As Directed Sodium Chloride 1,000 mls @ 100 mls/hr 05/22/19 10:00 05/24/19 03:34 Normal Saline 0.9% IV 1,000 mls .Q10H FAIZA Administration Insulin Human Lispro 0 units 05/20/19 11:45 05/22/19 17:29 Humalog SC 3 unit .MILD SLIDING SCALE PRN Administration Mild Correctional Scale Insulin Human Lispro 0 units 05/22/19 20:49 05/22/19 20:59 Humalog SC 2 unit .BEDTIME SLIDING SC PRN Administration Bedtime Correctional Scale Loratadine 10 mg 05/21/19 09:00 05/24/19 08:44 Claritin PO 10 mg DAILY FAIZA Administration Montelukast Sodium 10 mg 05/21/19 09:00 05/24/19 08:44 Singulair PO 10 mg DAILY FAIZA Administration Neomycin/Polymyxin/Bacitracin 1 gm 05/24/19 13:27 05/24/19 15:06 Triple Antibiotic TOP 05/25/19 13:28 1 gm ONE PRN Administration . Ondansetron HCl 4 mg 05/20/19 01:33 05/20/19 02:34 Zofran Odt PO 4 mg Q6H PRN Administration Nausea/Vomiting Ondansetron HCl 4 mg 05/20/19 01:33 05/22/19 06:21 Zofran IVP 4 mg Q6H PRN Administration Nausea/Vomiting Pregabalin 50 mg 05/20/19 15:00 05/24/19 15:06 Lyrica PO 50 mg TID FAIZA Administration Prochlorperazine Edisylate 5 mg 05/21/19 18:31 05/21/19 22:06 Compazine IVP 5 mg Q4H PRN Administration Nausea/Vomiting Rivaroxaban 20 mg 05/21/19 09:00 05/24/19 08:44 Xarelto PO 20 mg DAILY FAIZA Administration - Exam General Appearance: NAD, awake alert Eye: PERRL, anicteric sclera ENT: normocephalic atraumatic, no oropharyngeal lesions Neck: supple, symmetric, no JVD, no thyromegaly Heart: RRR, no murmur, no gallops, no rubs Respiratory: CTAB, no ronchi Respiratory - other findings: decreased breath sounds at the bases Gastrointestinal: soft, non-tender, non-distended, normal bowel sounds, no palpable masses Extremities: no cyanosis, no clubbing, no edema Skin: normal turgor, no lesions, no rashes Neurological: cranial nerve grossly intact, normal sensation to touch, no focal deficits, no new deficit Hosp A/P - Plan CTA Abdomen: massive periaortic, aortocaval, gastrohepatic, peripancreatic, mesenteric lymphadenopathy extending into iliac chain. Splenomegaly CTA chest: massive bilateral axillary and medistinal LAD with markedly enlarged mediastinal nodes, small hilar nodes. Large left thyroid lobe nodule Chest X ray: mediastinal widening ECHO: EF 60-65%, normal diastolic function Venogram: no DVT This is a 64 year old female with history of CLL who presented with shortness of breath Acute hypoxic respiratory failure secondary to CLL - resolved -currently on room air now. CTA chest shows no PE or nodules but extensive lymphadenopathy. - received rituxan but held due to excessive nausea/vomiting. Per oncology, will need more rituxan prior to discharge, they will discuss when to give it again #Hyperkalemia - improved. Potassium 5.3 again, s/p kayexelate with two bowel movements. Repeat BMP 5.3 , will give another kayexelate and insulin/dextrose #CLL - WBC increasing to 330, NTD for now per hematology #Acute Kidney Injury -resolved #Atrial fibrillation - continue xarelto - continue diltiazem #Gout #Peripheral edema - continue allopurinol - will d/c lasix due to gout. ECHO shows normal diastolic function - bilateral dopplers negative for DVT . #Type II diabetes - continue insulin sliding scale LAUREL - on CPAP at night Dispo: will need another dose of rituxan prior to discharge, pending heme onc recs Code status: full code
[2019-05-25] MEDS: Sodium Chloride 0.9% 1,000 ML IV SCH ×3 (01:29→12:18)
[2019-05-25 05:15] LABS: Anion Gap 11 mmol/L (10-20); BUN (Urea Nitrogen) 14 mg/dL (9.8-20.1); Calc. Creatinine Clearance 135 mL/min (70-130); Calcium 7.9 mg/dL (7.8-10.44); Carbon Dioxide 26 mmol/L (23-31); Chloride 110 mmol/L (98-107); Estimated GFR-MDRD 73; Glucose 89 mg/dL (80-115); Potassium 4.7 mmol/L (3.5-5.1); Sodium 142 mmol/L (136-145); Uric Acid 3.8 mg/dL (2.6-6.0)
[2019-05-25 05:21] LABS: Band 1 % (5-11); Hemoglobin 8.2 g/dL (12.0-16.0); Lymphocytes 96 % (21-51); MDiff Complete? YES; Mean Corpuscular HGB CONC 29.8 g/dL (32.0-36.0); Mean Corpuscular Hemoglobin 27.4 pg (27.0-31.0); Mean Corpuscular Volume 91.9 fL (78.0-98.0); Mean Platelet Volume 8.1 fL (7.4-10.4); Monocytes 1 % (0-10); Neutrophil 2 % (42-75); Platelet Count 115 thou/uL (130-400); Platelet Morphology Comment Appears Decreased; RBC Distribution Width 16.3 % (11.5-14.5); Red Blood Cell (RBC) Count 2.85 mill/uL (4.20-5.40)
[2019-05-25 06:03] LABS: Phosphorus 2.7 mg/dL (2.3-4.7)
[2019-05-25] MEDS: Allopurinol 300 MG TAB PO SCH ×2 (08:52→20:56)
[2019-05-25] MEDS: Pregabalin 50 MG CAP PO SCH ×3 (08:53→20:56)
[2019-05-25] MEDS: Montelukast Sodium 10 mg Tablet PO SCH (08:53)
[2019-05-25] MEDS: Loratadine 10 MG TAB PO SCH (08:53)
[2019-05-25] MEDS: Rivaroxaban 10 MG TAB PO SCH (08:53)
[2019-05-25] MEDS: Folic Acid 1 MG TAB PO SCH (08:53)
--- NOTE | 2019-05-25 14:04 | PDOC.MOPN ---
Interval History: feels ok, occasional nausea - Vital Signs Vital Signs: Vital Signs (12 hours) Temp Pulse Resp BP BP Pulse Ox 05/25/19 11:47 98.4 F 96 18 134/98 H 98 05/25/19 08:00 98.4 F 102 H 18 171/77 H 94 L 05/25/19 04:00 98.4 F 94 16 134/64 94 L 05/25/19 03:40 98.4 F 94 16 134/64 94 L Weight Weight 288 lb 12.889 oz - Physical Exam General: Alert, Oriented x3, No acute distress HEENT: Atraumatic, PERRLA, EOMI, Mucous membr. moist/pink Lungs: Clear to auscultation, Normal air movement Cardiovascular: Regular rate, Normal S1, Normal S2, No murmurs, Gallops, Rubs Abdomen: Normal bowel sounds, Soft, No tenderness, No hepatospenomegaly, No masses Extremities: No clubbing, No cyanosis, No edema, Normal pulses, No tenderness/ swelling Skin: No rashes, No breakdown, No significant lesion Neurological: Normal gait, Normal speech, Strength at 5/5 X4 ext, Normal tone, Sensation intact, Cranial nerves 3-12 NL, Reflexes 2+ Psych/Mental Status: Mental status NL, Mood NL - Labs Result Diagrams: 05/25/19 03:55 05/25/19 03:56 Lab results: Laboratory Results - last 24 hr 05/25/19 10:55: POC Glucose 105 05/25/19 05:26: POC Glucose 96 05/25/19 03:56: Phosphorus 2.7 05/25/19 03:56: Sodium 142, Potassium 4.7, Chloride 110 H, Carbon Dioxide 26, Anion Gap 11, BUN 14, Creatinine 0.94, Estimated GFR (MDRD) 73, Glucose 89, Uric Acid 3.8, Calcium 7.9 05/25/19 03:55: WBC 330.0 H*, RBC 2.85 L, Hgb 8.2 L, Hct 27.4 L, MCV 91.9, MCH 27.4, MCHC 29.8 L, RDW 16.3 H, Plt Count 115 L, MPV 8.1, Neutrophils % (Manual) 2 L, Band Neuts % (Manual) 1 L, Lymphocytes % (Manual) 96 H, Monocytes % (Manual ) 1, Neutrophils # Not Reportable, Lymphocytes # Not Reportable, Plt Morphology Comment Appears Decreased L 05/25/19 03:55: Lactate Dehydrogenase 234 H 05/24/19 20:51: POC Glucose 140 H 05/24/19 16:58: POC Glucose 135 H 05/24/19 14:50: Magnesium 1.9 05/24/19 14:50: Potassium 5.3 H 05/24/19 14:04: Potassium 6.7 H* Status: lab reviewed by me A/P - Problem (1) CLL (chronic lymphocytic leukemia) Current Visit: Yes Code(s): C91.10 - CHRONIC LYMPHOCYTIC LEUK OF B-CELL TYPE NOT ACHIEVE REMIS Status: Acute (2) Hyperkalemia Current Visit: Yes Code(s): E87.5 - HYPERKALEMIA Status: Acute - Plan Plan: discussed with Dr. eWiss Plan to complete Rituxan dose today, will premedicate with tylenol, benadryl, zofran CMP in am
[2019-05-25] MEDS ORDERED: Albuterol Sulfate 2.5 mg/3 ml Neb NEB PRN (14:45)
--- NOTE | 2019-05-25 17:26 | PDOC.HOSPP ---
- Subjective Encounter Date: 05/25/19 Encounter Time: 13:00 Subjective: The patient complains of shortness of breath but no cough. No abdominal pain, cramps, nausea/vomiting. Patient is asking when she can go home. Explained she needs rituxan prior to d/c SHe has some soreness in her arms from the IV site with mild bruising - Objective Vital Signs & Weight: Vital Signs (12 hours) Temp Pulse Resp BP BP Pulse Ox 05/25/19 16:16 97.3 F L 100 24 H 136/61 92 L 05/25/19 15:21 100 18 100 05/25/19 11:47 98.4 F 96 18 134/98 H 98 05/25/19 08:00 98.4 F 102 H 18 171/77 H 94 L Weight Weight 288 lb 12.889 oz I&O: 05/24/19 05/25/19 05/26/19 06:59 06:59 06:59 Intake Total 2600 Balance 2600 Result Diagrams: 05/25/19 03:55 05/25/19 03:56 Additional Labs: Accuchecks 05/25/19 05/25/19 05/25/19 17:05 10:55 05:26 POC Glucose 144 H 105 96 05/24/19 20:51 POC Glucose 140 H Hospitalist ROS - Review of Systems Constitutional: denies: fever, chills Respiratory: denies: cough - Medication Medications: Active Medications Generic Name Dose Route Start Last Admin Trade Name Freq PRN Reason Stop Dose Admin Acetaminophen 650 mg 05/19/19 17:19 05/21/19 09:37 Tylenol PO 650 mg Q4H PRN Administration Headache/Fever/Mild Pain (1-3) Acetaminophen 1,000 mg 05/21/19 09:02 05/24/19 10:54 Tylenol PO 1,000 mg WILLCALL PRN Administration Headache/Fever or Pain Albuterol Sulfate 2.5 mg 05/25/19 14:45 05/25/19 15:21 Ventolin NEB 2.5 mg Q4H PRN Administration Dyspnea/Wheezing/SOB Allopurinol 300 mg 05/21/19 09:00 05/25/19 08:52 Zyloprim PO 300 mg BID FAIZA Administration Diltiazem HCl 240 mg 05/21/19 09:00 05/25/19 08:53 Cardizem Cd PO 240 mg DAILY FAIZA Administration Folic Acid 1 mg 05/24/19 09:00 05/25/19 08:53 Folvite PO 1 mg DAILY FAIZA Administration Diphenhydramine HCl 25 mg/ 50.5 mls @ 151.5 mls/hr 05/21/19 09:02 05/21/19 16 :18 Sodium Chloride IVPB 50.5 mls WILLCALL PRN Administration Itching & Insomnia Rituximab 100 mg/ Sodium 110 mls @ 0 mls/hr 05/21/19 09:15 05/21/19 16:56 Chloride IVPB 110 mls WILLCALL FAIZA Administration As Directed Sodium Chloride 1,000 mls @ 100 mls/hr 05/25/19 11:00 05/25/19 12:18 Normal Saline 0.9% IV Not Given .Q10H FAIZA Insulin Human Lispro 0 units 05/20/19 11:45 05/22/19 17:29 Humalog SC 3 unit .MILD SLIDING SCALE PRN Administration Mild Correctional Scale Insulin Human Lispro 0 units 05/22/19 20:49 05/22/19 20:59 Humalog SC 2 unit .BEDTIME SLIDING SC PRN Administration Bedtime Correctional Scale Loratadine 10 mg 05/21/19 09:00 05/25/19 08:53 Claritin PO 10 mg DAILY FAIZA Administration Montelukast Sodium 10 mg 05/21/19 09:00 05/25/19 08:53 Singulair PO 10 mg DAILY FAIZA Administration Ondansetron HCl 4 mg 05/20/19 01:33 05/20/19 02:34 Zofran Odt PO 4 mg Q6H PRN Administration Nausea/Vomiting Ondansetron HCl 4 mg 05/20/19 01:33 05/22/19 06:21 Zofran IVP 4 mg Q6H PRN Administration Nausea/Vomiting Pregabalin 50 mg 05/20/19 15:00 05/25/19 15:03 Lyrica PO 50 mg TID FAIZA Administration Prochlorperazine Edisylate 5 mg 05/21/19 18:31 05/21/19 22:06 Compazine IVP 5 mg Q4H PRN Administration Nausea/Vomiting Rivaroxaban 20 mg 05/21/19 09:00 05/25/19 08:53 Xarelto PO 20 mg DAILY FAIZA Administration - Exam General Appearance: NAD, awake alert Eye: PERRL, anicteric sclera ENT: normocephalic atraumatic, no oropharyngeal lesions Neck: supple, symmetric, no JVD, no thyromegaly Heart: RRR, no murmur, no gallops, no rubs Respiratory: CTAB, no wheezes Respiratory - other findings: slightly diminished breath sounds at the bases Gastrointestinal: soft, non-tender, non-distended, normal bowel sounds Hosp A/P - Plan CTA Abdomen: massive periaortic, aortocaval, gastrohepatic, peripancreatic, mesenteric lymphadenopathy extending into iliac chain. Splenomegaly CTA chest: massive bilateral axillary and medistinal LAD with markedly enlarged mediastinal nodes, small hilar nodes. Large left thyroid lobe nodule Chest X ray: mediastinal widening ECHO: EF 60-65%, normal diastolic function Venogram: no DVT This is a 64 year old female with history of CLL who presented with shortness of breath Acute hypoxic respiratory failure secondary to CLL - resolved -currently on room air now. CTA chest shows no PE or nodules but extensive lymphadenopathy. - received rituxan but held due to excessive nausea/vomiting. Patient will receive another dose of rituxan today #Hyperkalemia - resolved, down to 4.7, will need to monitor potassium after rituxan #CLL - WBC increasing to 330, NTD for now per hematology #Acute Kidney Injury -resolved #Atrial fibrillation - continue xarelto - continue diltiazem #Gout #Peripheral edema - continue allopurinol ECHO shows normal diastolic function - bilateral dopplers negative for DVT . #Type II diabetes - continue insulin sliding scale LAUREL - on CPAP at night Dispo: will need another dose of rituxan prior to discharge, pending heme onc recs Code status: full code
[2019-05-25] MEDS: Ondansetron PF 4 MG/2 ML Vial IVP PRN (19:13)
[2019-05-25] MEDS: diphenhydrAMINE 25 MG in Sodium Chloride 0.9% 50 ML IVPB PRN (19:14)
[2019-05-25] MEDS: Acetaminophen 500 MG TAB PO PRN (19:14)
[2019-05-25] MEDS ORDERED: diphenhydrAMINE 50 MG/ML VIAL ONE (21:27)
[2019-05-25] MEDS ORDERED: Lorazepam 2 MG/ML VIAL SLOW IVP PRN ×2 (21:34→21:35)
[2019-05-25] MEDS ORDERED: Ondansetron HCl/PF 10 MG in Sodium Chloride 0.9% 50 ML IVPB PRN (21:34)
[2019-05-25] MEDS ORDERED: Ondansetron PF 4 MG/2 ML Vial SLOW IVP SCH (21:45)
[2019-05-25] MEDS ORDERED: diphenhydrAMINE 50 MG/ML VIAL IVP SCH (21:45)
[2019-05-26] MEDS: Sodium Chloride 0.9% 1,000 ML IV SCH ×3 (01:45→18:08)
[2019-05-26 04:34] VITALS: BMI 47.5
[2019-05-26 04:44] LABS: Anion Gap 12 mmol/L (10-20); BUN (Urea Nitrogen) 16 mg/dL (9.8-20.1); Calc. Creatinine Clearance 112 mL/min (70-130); Calcium 7.8 mg/dL (7.8-10.44); Carbon Dioxide 23 mmol/L (23-31); Chloride 110 mmol/L (98-107); Estimated GFR-MDRD 59; Glucose 154 mg/dL (80-115); Potassium 4.5 mmol/L (3.5-5.1); Sodium 140 mmol/L (136-145); Uric Acid 3.5 mg/dL (2.6-6.0)
[2019-05-26 04:48] LABS: Phosphorus 3.6 mg/dL (2.3-4.7)
[2019-05-26 05:21] LABS: Anisocytosis SLIGHT = 6-15 cells (100X) (0-5/hpf); Band 3 % (5-11); Lymphocytes 91 % (21-51); MDiff Complete? YES; Mean Corpuscular Hemoglobin 25.9 pg (27.0-31.0); Mean Corpuscular Volume 92.8 fL (78.0-98.0); Monocytes 1 % (0-10); Neutrophil 5 % (42-75); Nucleated RBC 1 % (0); Platelet Count 107 thou/uL (130-400); Platelet Morphology Comment Appears Decreased; RBC Distribution Width 16.6 % (11.5-14.5); Red Blood Cell (RBC) Count 2.99 mill/uL (4.20-5.40)
[2019-05-26] MEDS: Loratadine 10 MG TAB PO SCH (09:25)
[2019-05-26] MEDS: Montelukast Sodium 10 mg Tablet PO SCH (09:25)
[2019-05-26] MEDS: Folic Acid 1 MG TAB PO SCH (09:25)
[2019-05-26] MEDS: Rivaroxaban 10 MG TAB PO SCH (09:25)
[2019-05-26] MEDS: Pregabalin 50 MG CAP PO SCH ×3 (09:25→21:46)
[2019-05-26] MEDS: Allopurinol 300 MG TAB PO SCH ×2 (09:25→21:44)
--- NOTE | 2019-05-26 12:28 | RAD ---
Exam: Chest one view HISTORY:Short of breath Comparison: 05/19/2019 FINDINGS: Lungs: Left basilar opacity is present which may relate to atelectasis Cardiac silhouette:Stable enlargement Pulmonary vessels: Central pulmonary vascular prominence Pleural Spaces: Clear Pneumothorax: None Osseous abnormalities: None of acuity. IMPRESSION: Persistent enlargement of cardiac silhouette and pulmonary vasculature. Left basal opacity which may relate to atelectasis.
[2019-05-26] MEDS ORDERED: Furosemide 20 MG/2 ML VIAL SLOW IVP SCH (13:15)
[2019-05-26 13:30] LABS: Potassium 6.1 mmol/L (3.5-5.1); Uric Acid 3.5 mg/dL (2.6-6.0)
[2019-05-26] MEDS: Acetaminophen 325 MG TAB PO PRN (15:47)
[2019-05-26] MEDS ORDERED: Dextrose 50% Abboject 50 ML SYRINGE SLOW IVP PRN ×2 (18:30→18:33)
[2019-05-26] MEDS ORDERED: Insulin Regular 300 UNITS/3 ML VIAL IVP SCH (18:30)
--- NOTE | 2019-05-26 18:30 | PDOC.HOSPP ---
- Subjective Encounter Date: 05/26/19 Encounter Time: 12:00 Subjective: The patient received rituxan last night. Had some shortness of breath today, she felt it was just from laying down. She did not qualify for oxygen, is on room air. Chest X ray shows some pulmonary congestion. Labs show hyperkalemia again today with potassium of 6.1, not hemolyzed - Objective Vital Signs & Weight: Vital Signs (12 hours) Temp Pulse Resp BP BP Pulse Ox 05/26/19 16:17 99.3 F 118 H 14 133/57 L 90 L 05/26/19 11:14 98.2 F 111 H 24 H 139/73 92 L 05/26/19 07:48 97.6 F 111 H 20 160/74 H 95 Weight Weight 303 lb 2.17 oz I&O: 05/25/19 05/26/19 05/27/19 06:59 06:59 06:59 Intake Total 2600 850 Balance 2600 850 Result Diagrams: 05/26/19 04:11 05/26/19 12:52 Additional Labs: Accuchecks 05/26/19 05/26/19 05/26/19 17:20 10:50 05:31 POC Glucose 116 H 121 H 152 H 05/25/19 20:17 POC Glucose 145 H Hospitalist ROS - Review of Systems Eyes: denies: vision change, redness Respiratory: denies: cough, sputum Cardiovascular: denies: palpitations, light headedness - Medication Medications: Active Medications Generic Name Dose Route Start Last Admin Trade Name Freq PRN Reason Stop Dose Admin Acetaminophen 650 mg 05/19/19 17:19 05/26/19 15:47 Tylenol PO 650 mg Q4H PRN Administration Headache/Fever/Mild Pain (1-3) Acetaminophen 1,000 mg 05/21/19 09:02 05/25/19 19:14 Tylenol PO 1,000 mg WILLCALL PRN Administration Headache/Fever or Pain Albuterol Sulfate 2.5 mg 05/25/19 14:45 05/25/19 15:21 Ventolin NEB 2.5 mg Q4H PRN Administration Dyspnea/Wheezing/SOB Allopurinol 300 mg 05/21/19 09:00 05/26/19 09:25 Zyloprim PO 300 mg BID FAIZA Administration Diltiazem HCl 240 mg 05/21/19 09:00 05/26/19 09:25 Cardizem Cd PO 240 mg DAILY FAIZA Administration Folic Acid 1 mg 05/24/19 09:00 05/26/19 09:25 Folvite PO 1 mg DAILY FAIZA Administration Diphenhydramine HCl 25 mg/ 50.5 mls @ 151.5 mls/hr 05/21/19 09:02 05/25/19 19 :14 Sodium Chloride IVPB 50.5 mls WILLCALL PRN Administration Itching & Insomnia Rituximab 100 mg/ Sodium 110 mls @ 0 mls/hr 05/21/19 09:15 05/21/19 16:56 Chloride IVPB 110 mls WILLCALL FAIZA Administration As Directed Rituximab 500 mg/ Rituximab 577.7 mls @ 0 mls/hr 05/21/19 09:15 05/25/19 20: 00 277 mg/ Sodium Chloride IVPB 577.7 mls WILLCALL FAIZA Administration As Directed Sodium Chloride 1,000 mls @ 100 mls/hr 05/25/19 11:00 05/26/19 18:08 Normal Saline 0.9% IV Not Given .Q10H FAIZA Insulin Human Lispro 0 units 05/20/19 11:45 05/22/19 17:29 Humalog SC 3 unit .MILD SLIDING SCALE PRN Administration Mild Correctional Scale Insulin Human Lispro 0 units 05/22/19 20:49 05/22/19 20:59 Humalog SC 2 unit .BEDTIME SLIDING SC PRN Administration Bedtime Correctional Scale Loratadine 10 mg 05/21/19 09:00 05/26/19 09:25 Claritin PO 10 mg DAILY FAIZA Administration Lorazepam 0.5 mg 05/25/19 21:34 05/25/19 21:47 Ativan SLOW IVP 0.5 mg Q4H PRN Administration Anxiety MILD TO MODERATE Montelukast Sodium 10 mg 05/21/19 09:00 05/26/19 09:25 Singulair PO 10 mg DAILY FAIZA Administration Ondansetron HCl 4 mg 05/20/19 01:33 05/20/19 02:34 Zofran Odt PO 4 mg Q6H PRN Administration Nausea/Vomiting Ondansetron HCl 4 mg 05/20/19 01:33 05/25/19 19:13 Zofran IVP 4 mg Q6H PRN Administration Nausea/Vomiting Pregabalin 50 mg 05/20/19 15:00 05/26/19 15:47 Lyrica PO Not Given TID FAIZA Prochlorperazine Edisylate 5 mg 05/21/19 18:31 05/21/19 22:06 Compazine IVP 5 mg Q4H PRN Administration Nausea/Vomiting Rivaroxaban 20 mg 05/21/19 09:00 05/26/19 09:25 Xarelto PO 20 mg DAILY FAIZA Administration - Exam General Appearance: NAD, awake alert Eye: PERRL, anicteric sclera ENT: normocephalic atraumatic, no oropharyngeal lesions Neck: supple, symmetric, no JVD, no thyromegaly Heart: RRR, no murmur, no gallops Respiratory - other findings: crackles at the bases Gastrointestinal: soft, non-tender, non-distended Extremities: 1+ LE edema Skin: normal turgor, no lesions, no rashes Hosp A/P - Plan CTA Abdomen: massive periaortic, aortocaval, gastrohepatic, peripancreatic, mesenteric lymphadenopathy extending into iliac chain. Splenomegaly CTA chest: massive bilateral axillary and medistinal LAD with markedly enlarged mediastinal nodes, small hilar nodes. Large left thyroid lobe nodule Chest X ray: mediastinal widening ECHO: EF 60-65%, normal diastolic function Venogram: no DVT This is a 64 year old female with history of CLL who presented with shortness of breath Acute hypoxic respiratory failure secondary to CLL - resolved -currently on room air now. CTA chest shows no PE or nodules but extensive lymphadenopathy. Repeat chest X ray showing pulmonary congestion however, giving one dose of IV lasix - rituxan given last night #Hyperkalemia -potassium up to 6.1, give kayexelate, insulin, dextrose, recheck potassium #CLL - s/p rituxan yesterday - uric acid and phos normal today, potassium up to 6.1. #Acute Kidney Injury -resolved #Atrial fibrillation - continue xarelto - continue diltiazem #Gout #Peripheral edema - continue allopurinol ECHO shows normal diastolic function - bilateral dopplers negative for DVT . #Type II diabetes - continue insulin sliding scale LAUREL - on CPAP at night Dispo: pending improvement of hyperkalemia Code status: full code
[2019-05-26] MEDS ORDERED: Dextrose 50 % In Water 50 ML SYRINGE IV PRN ×2 (19:58→20:15)
[2019-05-26 22:29] LABS: Potassium 3.7 mmol/L (3.5-5.1)
[2019-05-27] MEDS: Sodium Chloride 0.9% 1,000 ML IV SCH ×2 (02:44→17:49)
[2019-05-27 05:42] LABS: ALT (SGPT) Less than 7 U/L (8-55); AST (SGOT) 18 U/L (5-34); Albumin 3.8 g/dL (3.4-4.8); Alkaline Phosphatase 195 U/L (40-110); Anion Gap 11 mmol/L (10-20); BUN (Urea Nitrogen) 18 mg/dL (9.8-20.1); Bilirubin, Total 0.4 mg/dL (0.2-1.2); Calc. Creatinine Clearance 101 mL/min (70-130); Carbon Dioxide 26 mmol/L (23-31); Chloride 109 mmol/L (98-107); Estimated GFR-MDRD 53; Globulin 2.2 g/dL (2.4-3.5); Glucose 151 mg/dL (80-115); Potassium 4.1 mmol/L (3.5-5.1); Sodium 142 mmol/L (136-145)
[2019-05-27 05:53] LABS: Hemoglobin 7.9 g/dL (12.0-16.0); Mean Corpuscular HGB CONC 30.2 g/dL (32.0-36.0); Mean Corpuscular Hemoglobin 27.6 pg (27.0-31.0); Mean Corpuscular Volume 91.3 fL (78.0-98.0); Mean Platelet Volume 8.9 fL (7.4-10.4); Platelet Count 89 thou/uL (130-400); RBC Distribution Width 16.1 % (11.5-14.5); Red Blood Cell (RBC) Count 2.87 mill/uL (4.20-5.40)
[2019-05-27] MEDS: Allopurinol 300 MG TAB PO SCH ×2 (09:06→21:19)
[2019-05-27] MEDS: Rivaroxaban 10 MG TAB PO SCH (09:06)
[2019-05-27] MEDS: Folic Acid 1 MG TAB PO SCH (09:06)
[2019-05-27] MEDS: Pregabalin 50 MG CAP PO SCH ×3 (09:06→21:19)
[2019-05-27] MEDS: Montelukast Sodium 10 mg Tablet PO SCH (09:07)
[2019-05-27] MEDS: Loratadine 10 MG TAB PO SCH (09:07)
[2019-05-27] MEDS: Ondansetron ODT 4 MG TAB PO PRN (11:20)
[2019-05-27 11:22] LABS: Phosphorus 4.3 mg/dL (2.3-4.7); Uric Acid 3.8 mg/dL (2.6-6.0)
[2019-05-27] MEDS ORDERED: Ondansetron HCl/PF 10 MG in Sodium Chloride 0.9% 50 ML IVPB PRN (12:54)
--- NOTE | 2019-05-27 15:28 | PDOC.HOSPP ---
- Subjective Encounter Date: 05/27/19 Encounter Time: 15:26 Subjective: THe patient is doing better. Her shortness of breath is much better. She only ate sherice crackers today and is feeling nauseous. She is requesting for a seven up. Today she said she was walking and was placed back on 2L but earlier this week was thought not to qualify for home oxygen She said she had two orange drinks today which were disgusting that she never wants to have again - Objective Vital Signs & Weight: Vital Signs (12 hours) Temp Pulse Resp BP BP Pulse Ox 05/27/19 11:57 97.5 F L 95 17 144/67 H 95 05/27/19 09:06 101 H 141/65 H 05/27/19 08:00 98.5 F 101 H 20 141/65 H 97 05/27/19 03:44 97.2 F L 103 H 18 134/65 96 Weight Weight 264 lb I&O: 05/26/19 05/27/19 05/28/19 06:59 06:59 06:59 Intake Total 850 3240 Output Total 1600 Balance 850 1640 Result Diagrams: 05/27/19 04:30 05/27/19 04:30 Additional Labs: Accuchecks 05/27/19 05/27/19 05/26/19 11:15 05:48 20:56 POC Glucose 132 H 132 H 107 05/26/19 17:20 POC Glucose 116 H Hospitalist ROS - Review of Systems Constitutional: denies: fever ENT: denies: ear discharge Respiratory: denies: cough, dry - Medication Medications: Active Medications Generic Name Dose Route Start Last Admin Trade Name Yaakovq PRN Reason Stop Dose Admin Acetaminophen 650 mg 05/19/19 17:19 05/26/19 15:47 Tylenol PO 650 mg Q4H PRN Administration Headache/Fever/Mild Pain (1-3) Acetaminophen 1,000 mg 05/21/19 09:02 05/25/19 19:14 Tylenol PO 1,000 mg WILLCALL PRN Administration Headache/Fever or Pain Albuterol Sulfate 2.5 mg 05/25/19 14:45 05/25/19 15:21 Ventolin NEB 2.5 mg Q4H PRN Administration Dyspnea/Wheezing/SOB Allopurinol 300 mg 05/21/19 09:00 05/27/19 09:06 Zyloprim PO 300 mg BID FAIZA Administration Dextrose/Water 50 ml 05/26/19 20:15 05/26/19 20:04 Dextrose 50%-Water Syringe IV 50 ml PRN PRN Administration Hypoglycemia Diltiazem HCl 240 mg 05/21/19 09:00 05/27/19 09:06 Cardizem Cd PO 240 mg DAILY FAIZA Administration Folic Acid 1 mg 05/24/19 09:00 05/27/19 09:06 Folvite PO 1 mg DAILY FAIZA Administration Diphenhydramine HCl 25 mg/ 50.5 mls @ 151.5 mls/hr 05/21/19 09:02 05/25/19 19 :14 Sodium Chloride IVPB 50.5 mls WILLCALL PRN Administration Itching & Insomnia Rituximab 100 mg/ Sodium 110 mls @ 0 mls/hr 05/21/19 09:15 05/21/19 16:56 Chloride IVPB 110 mls WILLCALL FAIZA Administration As Directed Rituximab 500 mg/ Rituximab 577.7 mls @ 0 mls/hr 05/21/19 09:15 05/25/19 20: 00 277 mg/ Sodium Chloride IVPB 577.7 mls WILLCALL FAIZA Administration As Directed Sodium Chloride 1,000 mls @ 100 mls/hr 05/25/19 11:00 05/27/19 02:44 Normal Saline 0.9% IV 1,000 mls .Q10H FAIZA Administration Insulin Human Lispro 0 units 05/20/19 11:45 05/22/19 17:29 Humalog SC 3 unit .MILD SLIDING SCALE PRN Administration Mild Correctional Scale Insulin Human Lispro 0 units 05/22/19 20:49 05/22/19 20:59 Humalog SC 2 unit .BEDTIME SLIDING SC PRN Administration Bedtime Correctional Scale Lactulose 30 gm 05/27/19 09:00 05/27/19 09:04 Lactulose PO 30 gm Q3D FAIZA Administration Loratadine 10 mg 05/21/19 09:00 05/27/19 09:07 Claritin PO 10 mg DAILY FAIZA Administration Lorazepam 0.5 mg 05/25/19 21:34 05/25/19 21:47 Ativan SLOW IVP 0.5 mg Q4H PRN Administration Anxiety MILD TO MODERATE Montelukast Sodium 10 mg 05/21/19 09:00 05/27/19 09:07 Singulair PO 10 mg DAILY FAIZA Administration Ondansetron HCl 4 mg 05/20/19 01:33 05/27/19 11:20 Zofran Odt PO 4 mg Q6H PRN Administration Nausea/Vomiting Pregabalin 50 mg 05/20/19 15:00 05/27/19 14:55 Lyrica PO 50 mg TID FAIZA Administration Prochlorperazine Edisylate 5 mg 05/21/19 18:31 05/21/19 22:06 Compazine IVP 5 mg Q4H PRN Administration Nausea/Vomiting Rivaroxaban 20 mg 05/21/19 09:00 05/27/19 09:06 Xarelto PO 20 mg DAILY FAIZA Administration Sodium Polystyrene Sulfonate 15 gm 05/27/19 09:00 05/27/19 09:05 Kayexalate Oral Susp 15 Gm/60 Ml PO 60 ml Q3D FAIZA Administration - Exam General Appearance: NAD, awake alert General - other findings: on 2L oxygen Eye: PERRL, anicteric sclera ENT: normocephalic atraumatic, no oropharyngeal lesions Neck: supple, symmetric, no JVD Heart: RRR, no murmur, no gallops, no rubs, normal peripheral pulses Respiratory: CTAB, no wheezes, no rales, no ronchi Gastrointestinal: soft, non-tender, non-distended Extremities: no cyanosis, no clubbing, 1+ LE edema Extremities - other findings: nonpitting Skin: normal turgor, no lesions, no rashes Hosp A/P - Plan CTA Abdomen: massive periaortic, aortocaval, gastrohepatic, peripancreatic, mesenteric lymphadenopathy extending into iliac chain. Splenomegaly CTA chest: massive bilateral axillary and medistinal LAD with markedly enlarged mediastinal nodes, small hilar nodes. Large left thyroid lobe nodule Chest X ray: mediastinal widening ECHO: EF 60-65%, normal diastolic function Venogram: no DVT This is a 64 year old female with history of CLL who presented with shortness of breath Acute hypoxic respiratory failure secondary to CLL - resolved -currently on room air now. CTA chest shows no PE or nodules but extensive lymphadenopathy. S/p rituxan last night 05/25. Got one dose of lasix 05/26, will hold further lasix - will consult PT, may need oxygen re-evaluation for discharge #Hyperkalemia- resolved #CLL -s/p rituxan 05/25 - uric acid and phos normal today, potassium up to 6.1. #Acute Kidney Injury - up to 1.25 again,will recheck tomorrow. On IV fluids #Atrial fibrillation - continue xarelto - continue diltiazem #Gout #Peripheral edema - continue allopurinol ECHO shows normal diastolic function - bilateral dopplers negative for DVT . #Type II diabetes - continue insulin sliding scale LAUREL - on CPAP at night Dispo: recheck kidney function tomorrow possibly d/c if normal. Reassess oxygen requirements on d/c Code status: full code
[2019-05-28] MEDS: Sodium Chloride 0.9% 1,000 ML IV SCH ×2 (01:44→06:01)
[2019-05-28 04:48] LABS: Anion Gap 10 mmol/L (10-20); BUN (Urea Nitrogen) 13 mg/dL (9.8-20.1); Calc. Creatinine Clearance 111 mL/min (70-130); Carbon Dioxide 28 mmol/L (23-31); Chloride 109 mmol/L (98-107); Estimated GFR-MDRD 69; Potassium 3.9 mmol/L (3.5-5.1); Sodium 143 mmol/L (136-145)
[2019-05-28 04:49] LABS: Calcium 8.1 mg/dL (7.8-10.44); Glucose 107 mg/dL (80-115)
[2019-05-28 05:00] LABS: Hemoglobin 7.4 g/dL (12.0-16.0); Mean Corpuscular HGB CONC 30.2 g/dL (32.0-36.0); Mean Corpuscular Hemoglobin 27.8 pg (27.0-31.0); Mean Platelet Volume 8.8 fL (7.4-10.4); Platelet Count 90 thou/uL (130-400); RBC Distribution Width 15.8 % (11.5-14.5); Red Blood Cell (RBC) Count 2.66 mill/uL (4.20-5.40)
[2019-05-28] MEDS: Rivaroxaban 10 MG TAB PO SCH (09:03)
[2019-05-28] MEDS: Loratadine 10 MG TAB PO SCH (09:04)
[2019-05-28] MEDS: Pregabalin 50 MG CAP PO SCH ×2 (09:04→16:16)
[2019-05-28] MEDS: Folic Acid 1 MG TAB PO SCH (09:04)
[2019-05-28] MEDS: Allopurinol 300 MG TAB PO SCH (09:04)
[2019-05-28] MEDS: Montelukast Sodium 10 mg Tablet PO SCH (09:04)
[2019-05-28] MEDS: Acetaminophen 325 MG TAB PO PRN (09:06)
--- NOTE | 2019-05-28 10:48 | PDOC.HOSPP ---
- Subjective Encounter Date: 05/28/19 Encounter Time: 12:20 Subjective: Patient feeling somewhat better. Still quite SOB with ambulation and O2 sats not staying up on RA. - Objective Vital Signs & Weight: Vital Signs (12 hours) Temp Pulse Resp BP BP Pulse Ox 05/28/19 09:04 109 H 165/75 H 05/28/19 08:00 98.3 F 109 H 24 H 165/75 H 95 05/28/19 03:41 97.7 F 105 H 20 169/76 H 92 L 05/28/19 00:00 101 H 165/75 H Weight Weight 266 lb 3.2 oz I&O: 05/27/19 05/28/19 05/29/19 06:59 06:59 06:59 Intake Total 3240 2693 Output Total 1600 700 Balance 1640 1992 Result Diagrams: 05/28/19 03:56 05/28/19 03:56 Additional Labs: Accuchecks 05/28/19 05/27/19 05/27/19 05:46 21:07 16:54 POC Glucose 119 H 116 H 118 H 05/27/19 11:15 POC Glucose 132 H Hospitalist ROS - Review of Systems Constitutional: denies: fever, chills Respiratory: reports: shortness of breath. denies: cough Cardiovascular: denies: chest pain, palpitations, orthopnea Gastrointestinal: denies: nausea, vomiting, abdominal pain - Medication Medications: Active Medications Generic Name Dose Route Start Last Admin Trade Name Freq PRN Reason Stop Dose Admin Acetaminophen 650 mg 05/19/19 17:19 05/28/19 09:06 Tylenol PO 650 mg Q4H PRN Administration Headache/Fever/Mild Pain (1-3) Acetaminophen 1,000 mg 05/21/19 09:02 05/25/19 19:14 Tylenol PO 1,000 mg WILLCALL PRN Administration Headache/Fever or Pain Albuterol Sulfate 2.5 mg 05/25/19 14:45 05/25/19 15:21 Ventolin NEB 2.5 mg Q4H PRN Administration Dyspnea/Wheezing/SOB Allopurinol 300 mg 05/21/19 09:00 05/28/19 09:04 Zyloprim PO 300 mg BID FAIZA Administration Dextrose/Water 50 ml 05/26/19 20:15 05/26/19 20:04 Dextrose 50%-Water Syringe IV 50 ml PRN PRN Administration Hypoglycemia Diltiazem HCl 240 mg 05/21/19 09:00 05/28/19 09:04 Cardizem Cd PO 240 mg DAILY FAIZA Administration Folic Acid 1 mg 05/24/19 09:00 05/28/19 09:04 Folvite PO 1 mg DAILY FAIZA Administration Diphenhydramine HCl 25 mg/ 50.5 mls @ 151.5 mls/hr 05/21/19 09:02 05/25/19 19 :14 Sodium Chloride IVPB 50.5 mls WILLCALL PRN Administration Itching & Insomnia Rituximab 100 mg/ Sodium 110 mls @ 0 mls/hr 05/21/19 09:15 05/21/19 16:56 Chloride IVPB 110 mls WILLCALL FAIZA Administration As Directed Rituximab 500 mg/ Rituximab 577.7 mls @ 0 mls/hr 05/21/19 09:15 05/25/19 20: 00 277 mg/ Sodium Chloride IVPB 577.7 mls WILLCALL FAIZA Administration As Directed Sodium Chloride 1,000 mls @ 100 mls/hr 05/25/19 11:00 05/28/19 06:01 Normal Saline 0.9% IV 1,000 mls .Q10H FAIZA Administration Insulin Human Lispro 0 units 05/20/19 11:45 05/22/19 17:29 Humalog SC 3 unit .MILD SLIDING SCALE PRN Administration Mild Correctional Scale Insulin Human Lispro 0 units 05/22/19 20:49 05/22/19 20:59 Humalog SC 2 unit .BEDTIME SLIDING SC PRN Administration Bedtime Correctional Scale Lactulose 30 gm 05/27/19 09:00 05/27/19 09:04 Lactulose PO 30 gm Q3D FAIZA Administration Loratadine 10 mg 05/21/19 09:00 05/28/19 09:04 Claritin PO 10 mg DAILY FAIZA Administration Lorazepam 0.5 mg 05/25/19 21:34 05/25/19 21:47 Ativan SLOW IVP 0.5 mg Q4H PRN Administration Anxiety MILD TO MODERATE Montelukast Sodium 10 mg 05/21/19 09:00 05/28/19 09:04 Singulair PO 10 mg DAILY FAIZA Administration Ondansetron HCl 4 mg 05/20/19 01:33 05/27/19 11:20 Zofran Odt PO 4 mg Q6H PRN Administration Nausea/Vomiting Pregabalin 50 mg 05/20/19 15:00 05/28/19 09:04 Lyrica PO 50 mg TID FAIZA Administration Prochlorperazine Edisylate 5 mg 05/21/19 18:31 05/21/19 22:06 Compazine IVP 5 mg Q4H PRN Administration Nausea/Vomiting Rivaroxaban 20 mg 05/21/19 09:00 05/28/19 09:03 Xarelto PO 20 mg DAILY FAIZA Administration Sodium Polystyrene Sulfonate 15 gm 05/27/19 09:00 05/27/19 09:05 Kayexalate Oral Susp 15 Gm/60 Ml PO 60 ml Q3D FAIZA Administration - Exam General Appearance: NAD General - other findings: Obese Heart: RRR, no murmur, no gallops, no rubs Respiratory: CTAB, no wheezes, no rales, no ronchi Respiratory - other findings: no increased WOB Gastrointestinal: soft, non-tender, non-distended, normal bowel sounds Psychiatric: normal affect, normal behavior, A&O x 3 Hosp A/P (1) Acute respiratory failure with hypoxia Code(s): J96.01 - ACUTE RESPIRATORY FAILURE WITH HYPOXIA Status: Chronic Plan: no PE, due to COPD from obesity and CLL, dropping to 88% on RA with ambulation so will order home O2 (2) CLL (chronic lymphocytic leukemia) Code(s): C91.10 - CHRONIC LYMPHOCYTIC LEUK OF B-CELL TYPE NOT ACHIEVE REMIS Status: Acute Plan: WBC improving, s/p rituxam 05/25 (3) Acute kidney failure Status: Resolved (4) Hyperkalemia Code(s): E87.5 - HYPERKALEMIA Status: Resolved (5) Afib Code(s): I48.91 - UNSPECIFIED ATRIAL FIBRILLATION Status: Chronic (6) Gout Code(s): M10.9 - GOUT, UNSPECIFIED Status: Chronic (7) COPD (chronic obstructive pulmonary disease) Status: Chronic (8) LAUREL (obstructive sleep apnea) Code(s): G47.33 - OBSTRUCTIVE SLEEP APNEA (ADULT) (PEDIATRIC) Status: Chronic - Plan Patient with sats dropping to 88% on RA. Will arrange home O2 and d/c home. Stopping IV fluids as creatinine has normalized.
[2019-05-28 15:43] VITALS: BP 143/66; TEMP 99.4
--- NOTE | 2019-05-29 09:39 | DIS ---
DATE OF ADMISSION: 05/19/2019 DATE OF DISCHARGE: 05/28/2019 PRIMARY CARE PHYSICIAN: Dr. Pereira. REASON FOR ADMISSION: Acute leukemia. DIAGNOSES AT DISCHARGE: 1. Acute respiratory failure with hypoxia, now on home O2. 2. Chronic lymphocytic leukemia, improved, status post Rituxan. 3. Acute kidney failure, resolved. 4. Hyperkalemia, resolved. 5. Chronic atrial fibrillation. 6. Gout. 7. Chronic obstructive pulmonary disease. 8. Obstructive sleep apnea. PROCEDURES: 1. CT aortic dissection protocol showing extensive adenopathy in the chest, abdomen, pelvis, and probably neck region with massive splenomegaly, compatible with lymphoma. 2. Bilateral lower extremity ultrasounds showing no evidence for DVT. 3. Echocardiogram showing ejection fraction of 60% to 65%, and normal diastolic function. CONSULTATIONS: Hem-Oncology, Dr. Weiss. PERTINENT LABORATORY: The patient's white count on initial presentation was 394,000, 96% of the lymphocytes down to 55,000 at discharge. Platelet count on presentation was 144,000 down to 90,000 at discharge. Hemoglobin was 8 on admission down to 7.4 at discharge. SUMMARY OF HOSPITAL COURSE: This is a 64-year-old female with a history of obesity, obstructive sleep apnea, also with a medical history of chronic lymphocytic leukemia with 6 months of chemotherapy in 2016 with no followup since that year. She is on CPAP chronically, also with chronic atrial fibrillation on Xarelto; history of possible CHF; also with hypertension, diabetes, and gout. She presented to the emergency room with severe shortness of breath and right-sided chest pain for 3 days. Also, had some intermittent coughing. She had a CT done in the emergency room with results as above and the lab work as above. The patient was admitted to the hospital, Dr. Weiss. Dr. Weiss was consulted, diagnosed her with recurrent CLL. She was given chemotherapy and increased in allopurinol due to risk for tumor lysis syndrome. She tolerated this therapy well with some occasional nausea and hyperkalemia that resolved. Also, she did have a little bit of a bump in her creatinine. Dr. Colon was consulted and did follow along. This creatinine normalized with IV fluids. The patient did have some shortness of breath and hypoxia during her hospitalization, requiring oxygen, on and off. Likely due to her obstructive sleep apnea/COPD exacerbated by the CLL, she would have home O2 arranged. The patient was doing well on the day of discharge and was discharged to home with home O2. DISCHARGE MANAGEMENT: Discharged to home. ACTIVITY: As tolerated. DIET: Diabetic, healthy heart diet. EQUIPMENT SUPPLIES: Home oxygen. FOLLOWUP: Follow up with Dr. Weiss next week, his office will call her and set up an appointment, and with Vickie Linder in 7 days. DISCHARGE MEDICATIONS: 1. Allopurinol 300 mg twice a day, 60 tablets dispensed. 2. Continue cetirizine 10 mg daily. 3. Diltiazem extended release 240 mg daily. 4. Montelukast 10 mg daily. 5. Lyrica 50 mg 3 times a day. 6. Xarelto 20 mg daily. 7. Furosemide 20 mg daily. 8. Tradjenta 5 mg daily. 9. Lisinopril 20 mg daily. 10. Potassium chloride 10 mEq daily. Arranging the details of this discharge took 35 minutes. Job ID: [id number]
== END 2019-05-28 18:35 | disposition home or self-care (01) | DRG 840 ==
LOC: ERS 10:27 → 2NO 18:59 → ONC 05-21 15:39 → 2NO 05-22 10:21
PROVIDERS: ADMIT Hospitalist; ATTEND Hospitalist
DX: C91.10 Chronic lymphocytic leukemia of B-cell type not having achieved remission (principal); J96.01 Acute respiratory failure with hypoxia; N17.9 Acute kidney failure, unspecified; I48.20 Chronic atrial fibrillation, unspecified; Z68.41 Body mass index [BMI] 40.0-44.9, adult; E87.5 Hyperkalemia; M10.9 Gout, unspecified; G47.33 Obstructive sleep apnea (adult) (pediatric); E11.9 Type 2 diabetes mellitus without complications; Z79.899 Other long term (current) drug therapy; Z90.710 Acquired absence of both cervix and uterus; E66.01 Morbid (severe) obesity due to excess calories; I10 Essential (primary) hypertension; E78.5 Hyperlipidemia, unspecified
CPT/HCPCS: 36415; 36416; 71045; 71275; 72191; 74175; 80048; 80053; 82550; 82553; 82607; 82746; 83010; 83615; 83735; 84100; 84443; 84484; 84550; 85025; 85027; 85060; 85379; 85610; 86850; 86900; 86901; 88184; 93005; 93010; 93306; 93970; 94640; 94660; 96361; 96374; 96375; J0780; J1100; J1200; J1815; J1940; J2060; J2405; J2550; J3010; J3490; J7050; J7070; J7611; J9312; Q0162; Q9967

== ENCOUNTER 2019-05-30 03:36 | Inpatient (IN) | payer MEDICARE ==
[2019-05-30 04:38] LABS: Bacteria/HPF None Seen HPF (None Seen); Bilirubin Negative (Negative); Blood, Urine 2+ (Negative); Clarity Turbid (Clear); Glucose, Urine (Dipstick) Normal (Negative); Leukocyte Negative Leu/uL (Negative); Nitrite Negative (Negative); Protein, Urine (Dipstick) 100 mg/dL (Neg-Trace); RBC/HPF 0-3 HPF (0-3); Squamous Epithelial 0-3 HPF (0-3); Urobilinogen Normal mg/dL (Less than 2); WBC/HPF 0-3 HPF (0-3)
[2019-05-30] MEDS ORDERED: Ondansetron ODT 4 MG TAB SL PRN (07:33)
[2019-05-30] MEDS ORDERED: Ondansetron PF 4 MG/2 ML Vial IVP PRN (07:33)
[2019-05-30] MEDS ORDERED: Sodium Chloride 0.9% 1,000 ML IV SCH (07:33)
[2019-05-30] MEDS ORDERED: Vancomycin HCl 1 GM in Premix Bag 1 BAG IVPB SCH (09:00)
[2019-05-30] MEDS ORDERED: Cefepime 2 GM in Sodium Chloride 0.9% 100 ML IVPB SCH (09:00)
[2019-05-30] MEDS: Vancomycin HCl 1 GM in Premix Bag 1 BAG IVPB SCH ×2 (09:22→20:46)
[2019-05-30] MEDS ORDERED: Loratadine 10 MG TAB PO SCH (09:30)
[2019-05-30] MEDS ORDERED: Allopurinol 300 MG TAB PO SCH (09:30)
[2019-05-30] MEDS ORDERED: Furosemide 20 MG TAB PO SCH (09:30)
[2019-05-30] MEDS ORDERED: Lisinopril 20 MG TAB PO SCH (09:30)
[2019-05-30] MEDS ORDERED: Rivaroxaban 10 MG TAB PO SCH (09:30)
[2019-05-30] MEDS: Cefepime 2 GM in Sodium Chloride 0.9% 100 ML IVPB SCH ×2 (10:37→20:46)
--- NOTE | 2019-05-30 15:23 | HP ---
CHIEF COMPLAINT: Fall. HISTORY OF PRESENT ILLNESS: This patient is a 64-year-old female who was just discharged from the hospital a couple days ago on the 28 of May. The patient had been admitted for chest pain and shortness of breath. She appeared to have significant bulky lymphadenopathy in the intrathoracic region as well as other areas due to CLL. She underwent Rituxan therapy and her white count ultimately came down from 390,000 to around 30,000 now. The patient had some complications from AFib with RVR and some significant nausea and vomiting with the initial testing of the Rituxan. She was subsequently discharged home. The patient says she was feeling fine. She got too close to the edge of her bed and slipped out of the bed. She had a laundry basket next to the bed with something on it, which helped her break her fall. She had no injury and she says she feels fine. Her family was there and they were concerned that she had some confusion. She says that she was not confused, but her sisters were firing multiple questions at her one after the other and she was not able to give answers to their satisfaction, but she is able to recall the incident in great detail. She says family members helped her to get up off the floor, called an ambulance and she was subsequently taken to the emergency department in [place]. There the patient was noted to have a temperature up to 103.1. She was subsequently transferred to this facility. She did receive vancomycin and cefepime with some concern for possible urinary tract infection, although her urine looks pretty clear. She had a chest x-ray, which was unremarkable for any acute infiltrates and a CT of the head was also unremarkable. Currently, the patient states she needs food and she needs something to drink and she is short of breath because her oxygen got taken off and not put back on. She was sent home on home oxygen at the time of her discharge. REVIEW OF SYSTEMS: All other systems reviewed. All pertinent positives and negatives noted in history of present illness. PAST MEDICAL HISTORY: Notable for the above-mentioned CLL, which has been fairly longstanding and just underwent Rituxan treatment and discharged on the . She had acute kidney failure which was resolved. She has chronic atrial fibrillation, gout, COPD, obstructive sleep apnea. She had morbid obesity, hypertension, type 2 diabetes. PAST SURGICAL HISTORY: Hysterectomy, partial thyroidectomy and herniorrhaphy. FAMILY HISTORY: Mother of COPD complications. Father of heart disease. SOCIAL HISTORY: The patient lives with her sister and other family members. Denies alcohol or tobacco. She is home oxygen-dependent. She is full code and her sister, Leslie, would be her surrogate decision maker should that become necessary. ALLERGIES: NONE. HOME MEDICATIONS: 1. Xarelto 20 mg daily. 2. Lyrica 50 mg t.i.d. 3. Allopurinol 300 mg b.i.d. 4. Tradjenta 5 mg p.o. daily. 5. Potassium 10 mEq p.o. daily. 6. Lisinopril 20 mg daily. 7. Montelukast 10 mg daily. 8. Diltiazem 240 mg daily. 9. Cetirizine 10 mg daily. 10. Lasix 20 mg daily. PHYSICAL EXAMINATION: VITAL SIGNS: Currently, temperature 98.9, pulse 107, respirations 20, O2 saturation 96% on 2 L nasal cannula, BP was 127/72. GENERAL APPEARANCE: Morbidly obese age-appropriate female. She is a bit tachypneic. She is awake and alert, pleasant, appropriate, cooperative. HEENT: JACQUES. No acute lesions. NECK: Supple and symmetric. No lymphadenopathy, JVD, or bruits. HEART: Regular rate and rhythm without murmurs, gallops, or rubs. LUNGS: Clear to auscultation although diminished throughout. There are no wheezes or rales. ABDOMEN: Obese, soft, nontender, and nondistended. Positive bowel sounds. No masses. No organomegaly. EXTREMITIES: Have 1+ pitting edema. There is some mild evidence of stasis type dermatitis of the left lower extremity around the calf. There is small ecchymoses proximal to the right wrist, possibly some slight edema of the upper extremities as well. PSYCH: The patient is awake, alert, pleasant, cooperative. She does not appear to be at all confused. NEURO: She is moving all extremities spontaneously. Cranial nerves are intact. She appears to be cognitively normal. LABORATORY DATA: White count is 30.5, hemoglobin 7.5, platelets 79 with 10 neutrophils, 5% bands, 82% lymphocytes. Sodium 139, potassium 3.8, chloride 105, CO2 of 26, BUN 13, creatinine is 1.1, glucose 134, lactic acid 0.5, calcium 9.0, AST is 19, ALT is 12, ammonia is 25, albumin 3.6. Urinalysis shows some protein, trace blood and some crystals, but 0-3 red cells, 0-3 white cells. Flu screen is negative. Chest x-ray and CT of the brain as above. IMPRESSION AND PLAN: 1. Febrile illness in a patient with chronic lymphocytic leukemia, status post Rituxan therapy. She is tachycardic and her white count is elevated. Neither of those are reliable indicators of sepsis because she has underlying atrial fibrillation and the chronic lymphocytic leukemia. However, in the situation have to assume sepsis. Therefore, we will continue to cover empirically with vancomycin and cefepime. We will consult Infectious Disease for further input and recommendations next fall as this appears to be more of a mechanical related issue. She does not report any specific injury nor does she have any evidence of such other than a little ecchymosis on the wrist. We will continue to monitor. 2. Altered mental status. There is no evidence at this point that was in fact the case. The patient recalls the details of everything that happened quite well and it sounds like perhaps the family was incorrect in that assessment of the patient. 3. Chronic anemia secondary to leukemia and treatment. She is actually slightly above her discharge level. Continue to monitor. 4. Thrombocytopenia, again chronic related to her treatment and stable. No evidence of acute bleeding. 5. Chronic atrial fibrillation. She is on Xarelto. We will continue with her diltiazem for better rate control. 6. Diabetes mellitus. We will continue home medications, Accu-Cheks sliding scale. 7. Hypertension. Continue lisinopril, diltiazem. 8. Chronic lymphocytic leukemia. Continue with the allopurinol. Job ID: [id number]
[2019-05-30] MEDS: Pregabalin 50 MG CAP PO SCH ×2 (16:12→20:44)
[2019-05-30] MEDS: Acetaminophen 650 MG/20.3 ML UDCUP PO PRN (18:19)
[2019-05-30] MEDS: Montelukast Sodium 10 mg Tablet PO SCH (20:45)
[2019-05-30] MEDS: Allopurinol 300 MG TAB PO SCH (20:45)
--- NOTE | 2019-05-30 21:11 | CON ---
DATE OF CONSULTATION: 05/30/2019 REASON FOR CONSULTATION: Fever. HISTORY OF PRESENT ILLNESS: A 64-year-old patient, who has a history of chronic lymphocytic leukemia as well as hypertension, obesity, and type 2 diabetes. She recently developed exacerbation of her CLL and was given Rituxan by Dr. Weiss. Mid May 2019, she developed worsening dyspnea and chest pain with coughing spells. She at that time was noticed to have worsening lymphocyte count and Oncology recommended treatment with Rituxan. She was given allopurinol at that same time to prevent tumor lysis syndrome. She was discharged on May 28 on allopurinol, montelukast, Lyrica, Xarelto, furosemide, Tradjenta, and lisinopril. On the night before admission, she had some diarrhea and then fell from bed while trying to get up. The family members found her on the ground and she was brought over for evaluation, had still some coughing spells, had bruising in the upper extremities from IV access during the recent admission, a little bit confused. Other findings included pulse 117, BP 147/71, respiratory rate 24, temperature was 103.1, and O2 saturation was 97%. Findings also included dry mucous membranes, mild tachypnea, tachycardia with atrial fibrillation, she was diffusely weak with edema in lower extremities. Other findings included sodium 139, creatinine 1.11 with a baseline of 0.99, glucose 125. Liver profile was normal. Ammonia 25. CK was 31, albumin 3.6. White cell count was 30.5, which is down from 330 on May 25, hemoglobin was 7.5 with platelet count 79,000, neutrophil percentage was 59, the lymphocyte percentage had 32% lymphocytes. Urinalysis, 0-3 WBCs of a urine culture from November, but no recent results are yet. Influenza A and B were negative. The patient had a brain CT, which showed no acute intracranial abnormality. Chest x-ray with no evidence of acute cardiopulmonary disease. PMHx: CLL, afib, gout, copd,obesity, htn, dm2 PSHx: Herniorrhaphy, hysterect., thyroidectomy All: NKDA SHx: never smoker, lives with family in [place] Meds: Allopurinol, Tradjenta, Lisinopril, Montelukast, potassium, Cefepime, Vanco, Xarelto PEx: T max: 102, currently 97.5, 168/75, RR 32-40, Osat 96-91 voiding in bedside commode, no skin lesions, periph iv access. No LN, eomi, no oral lesions, moist mucosa, supple neck. No jvd, symmetric lung sounds with faint basilar insp crackles, S1S2, S4, no S3 or murmurs. Abd mod distended, tympanitic, non tender, no ascites, no organomegaly or bladder distension. +1 edema in legs, pulses 1+ DP and popliteals. Non focal neuro exam , awake, oriented, follows commands Labs: WBC 22.4, Hb 7.4, Plt 84k, Creat 0.99 - 1.3, ua: 0-3 wbc, 100 prot. BC and urine culture pending CxR: cardiomeg, no infiltrates ASSESSMENT: 1. Type 2 diabetes. 2. Obesity with hypoventilation syndrome. 3. Hypertension. 4. Chronic lymphocytic leukemia with recent exacerbation requiring initiation of Rituxan, recent admission with the decompensation related to the marked lymphocytosis from her uncontrolled chronic lymphocytic leukemia. During that visit, she was given Rituxan. 5. Fever with cough, but no other focal findings. DISCUSSION: The differential diagnosis includes viral syndrome versus transient bacteremia versus fever from the malignancy itself, particularly in reference to the possibility of Benson's transformation. We will submit respiratory virus PCR. Continue monitoring of blood cultures and if she remains stable, afebrile and the cultures remain negative, then I would discontinue antimicrobial therapy. Otherwise, will have to address the retrieved organism to determine if any further imaging would be needed or just short course antimicrobial tx. Job ID: [id number] [facility]
[2019-05-31] MEDS: Acetaminophen 650 MG/20.3 ML UDCUP PO PRN (01:05)
[2019-05-31 06:22] LABS: Anion Gap 11 mmol/L (10-20); BUN (Urea Nitrogen) 14 mg/dL (9.8-20.1); Calc. Creatinine Clearance 0 mL/min (70-130); Calcium 8.2 mg/dL (7.8-10.44); Carbon Dioxide 27 mmol/L (23-31); Chloride 106 mmol/L (98-107); Estimated GFR-MDRD 50; Glucose 119 mg/dL (80-115); Potassium 3.6 mmol/L (3.5-5.1); Sodium 140 mmol/L (136-145)
[2019-05-31 06:24] LABS: Band 8 % (5-11); Hemoglobin 7.4 g/dL (12.0-16.0); Lymphocytes 74 % (21-51); MDiff Complete? YES; Mean Corpuscular HGB CONC 31.3 g/dL (32.0-36.0); Mean Corpuscular Hemoglobin 28.4 pg (27.0-31.0); Mean Corpuscular Volume 90.7 fL (78.0-98.0); Mean Platelet Volume 9.6 fL (7.4-10.4); Monocytes 3 % (0-10); Neutrophil 14 % (42-75); Platelet Count 84 thou/uL (130-400); Platelet Morphology Comment Appears Decreased; RBC Distribution Width 16.1 % (11.5-14.5); RBC Morphology Normal; Reactive Lymphocytes 1 % (0-10); White Blood Cell (WBC) Count 22.4 thou/uL (4.8-10.8)
[2019-05-31] MEDS: Rivaroxaban 10 MG TAB PO SCH (08:25)
[2019-05-31] MEDS: Lisinopril 20 MG TAB PO SCH (08:26)
[2019-05-31] MEDS: Allopurinol 300 MG TAB PO SCH ×2 (08:26→21:23)
[2019-05-31] MEDS: Furosemide 20 MG TAB PO SCH (08:27)
[2019-05-31] MEDS: Potassium Chloride 10 MEQ TAB PO SCH (08:27)
[2019-05-31] MEDS: Loratadine 10 MG TAB PO SCH (08:27)
[2019-05-31] MEDS: Vancomycin HCl 1 GM in Premix Bag 1 BAG IVPB SCH ×2 (08:31→21:23)
[2019-05-31] MEDS: Pregabalin 50 MG CAP PO SCH (08:32)
[2019-05-31 08:55] VITALS: BMI 41.8
[2019-05-31] MEDS: Cefepime 2 GM in Sodium Chloride 0.9% 100 ML IVPB SCH ×2 (09:31→21:22)
[2019-05-31] MEDS ORDERED: FLU VACC QS2019-20(6MOS UP)/PF 60 MCG/0.5 ML SYRINGE IM ONE (10:00)
--- NOTE | 2019-05-31 10:16 | PDOC.HOSPP ---
- Subjective Encounter Date: 05/31/19 Encounter Time: 10:15 Subjective: Says she is feeling a little better today. She is somnolent. Says she has CPAP at home, but has not been able to reach her sister to have ther bring it to her. - Objective Vital Signs & Weight: Vital Signs (12 hours) Temp Pulse Resp BP Pulse Ox 05/31/19 08:25 100 05/31/19 07:18 97.5 F L 100 30 H 168/75 H 91 L 05/31/19 03:53 97.7 F 100 32 H 128/70 92 L 05/30/19 23:20 98 F 116 H 34 H 139/71 93 L Weight Weight 267 lb I&O: 05/30/19 05/31/19 06/01/19 06:59 06:59 06:59 Intake Total 760 Balance 760 Result Diagrams: 05/31/19 05:28 05/31/19 05:28 Hospitalist ROS - Medication Medications: Active Medications Generic Name Dose Route Start Last Admin Trade Name Freq PRN Reason Stop Dose Admin Acetaminophen 650 mg 05/30/19 17:14 05/31/19 01:05 Tylenol Elixir PO 650 mg Q6H PRN Administration Fever/Mild Pain Allopurinol 300 mg 05/30/19 21:00 05/31/19 08:26 Zyloprim PO 300 mg BID FAIZA Administration Diltiazem HCl 240 mg 05/31/19 09:00 05/31/19 08:25 Cardizem Cd PO 240 mg DAILY FAIZA Administration Furosemide 20 mg 05/31/19 09:00 05/31/19 08:27 Lasix PO 20 mg DAILY FAIZA Administration Cefepime HCl 2 gm/ Sodium 100 mls @ 200 mls/hr 05/30/19 09:00 05/31/19 09:31 Chloride IVPB 100 mls Q12HR FAIZA Administration Vancomycin HCl 1 gm/ Device 200 mls @ 200 mls/hr 05/30/19 09:00 05/31/19 08: 31 IVPB 200 mls Q12HR FAIZA Administration Lisinopril 20 mg 05/31/19 09:00 05/31/19 08:26 Zestril PO 20 mg DAILY FAIZA Administration Loratadine 10 mg 05/31/19 09:00 05/31/19 08:27 Claritin PO 10 mg DAILY FAIZA Administration Montelukast Sodium 10 mg 05/30/19 21:00 05/30/19 20:45 Singulair PO 10 mg QPM FAIZA Administration Potassium Chloride 10 meq 05/31/19 08:00 05/31/19 08:27 Klor-Con 10 PO 10 meq QAM-WM FAIZA Administration Rivaroxaban 20 mg 05/31/19 09:00 05/31/19 08:25 Xarelto PO 20 mg DAILY FAIZA Administration - Exam General Appearance: NAD General - other findings: somnolen, but awakens and is appropriate. ENT: normocephalic atraumatic, no oropharyngeal lesions, moist mucosa Heart: no murmur, no gallops, no rubs, normal peripheral pulses, irregular Respiratory: CTAB, no wheezes, no rales, no ronchi, normal chest expansion, no tachypnea, normal percussion Gastrointestinal: soft, non-tender, non-distended, normal bowel sounds, no palpable masses, no hepatomegaly, no splenomegaly, no bruit Extremities: no cyanosis, no clubbing, no edema Musculoskeletal: normal tone, normal strength, no muscle wasting Psychiatric: normal behavior, A&O x 3, somnolent Hosp A/P (1) Gram-negative bacteremia Code(s): R78.81 - BACTEREMIA Status: Acute (2) CKD (chronic kidney disease), stage III Code(s): N18.3 - CHRONIC KIDNEY DISEASE, STAGE 3 (MODERATE) Status: Acute (3) Diabetes mellitus Code(s): E11.9 - TYPE 2 DIABETES MELLITUS WITHOUT COMPLICATIONS Status: Acute (4) HTN (hypertension) Code(s): I10 - ESSENTIAL (PRIMARY) HYPERTENSION Status: Acute (5) Acute respiratory failure with hypoxia Code(s): J96.01 - ACUTE RESPIRATORY FAILURE WITH HYPOXIA Status: Chronic (6) Afib Code(s): I48.91 - UNSPECIFIED ATRIAL FIBRILLATION Status: Chronic (7) COPD (chronic obstructive pulmonary disease) Status: Chronic (8) LAUREL (obstructive sleep apnea) Code(s): G47.33 - OBSTRUCTIVE SLEEP APNEA (ADULT) (PEDIATRIC) Status: Chronic (9) Anemia Code(s): D64.9 - ANEMIA, UNSPECIFIED Status: Acute - Plan Presented after falling out of her bed. Family members reported she had AMS, but she has clear recollection of events. Febrile on the day of admission (05/30) Gram negative bacteremia. Unknown source. Denies abd pain. UA did not look bad. CXR with no infiltrate. Continue Vanc/Cefepime. Await ID/Sens. Clearly needs her CPAP. Discussed with nurse. She will help her get in touch with her sister to bring the CPAP machine from home today. BP good control. Blood sugars well controlled. Glucose checks. Hgb low, but at her baseline. Will go ahead and transfuse based on her tachycardia and tachypnea.
[2019-05-31] MEDS: Montelukast Sodium 10 mg Tablet PO SCH (21:23)
[2019-06-01 05:57] LABS: Anion Gap 12 mmol/L (10-20); BUN (Urea Nitrogen) 15 mg/dL (9.8-20.1); Calc. Creatinine Clearance 70 mL/min (70-130); Calcium 8.6 mg/dL (7.8-10.44); Carbon Dioxide 28 mmol/L (23-31); Chloride 106 mmol/L (98-107); Estimated GFR-MDRD 40; Glucose 117 mg/dL (80-115); Potassium 3.6 mmol/L (3.5-5.1); Sodium 142 mmol/L (136-145)
[2019-06-01 05:58] LABS: Band 2 % (5-11); Hemoglobin 8.1 g/dL (12.0-16.0); Lymphocytes 83 % (21-51); MDiff Complete? YES; Mean Corpuscular HGB CONC 31.1 g/dL (32.0-36.0); Mean Corpuscular Hemoglobin 28.3 pg (27.0-31.0); Monocytes 2 % (0-10); Neutrophil 13 % (42-75); Platelet Count 108 thou/uL (130-400); Platelet Morphology Comment Appears Decreased; Red Blood Cell (RBC) Count 2.86 mill/uL (4.20-5.40); White Blood Cell (WBC) Count 22.7 thou/uL (4.8-10.8)
[2019-06-01] MEDS: Vancomycin HCl 1 GM in Premix Bag 1 BAG IVPB SCH (09:05)
[2019-06-01] MEDS: Allopurinol 300 MG TAB PO SCH ×2 (09:06→21:31)
[2019-06-01] MEDS: Lisinopril 20 MG TAB PO SCH (09:06)
[2019-06-01] MEDS: Loratadine 10 MG TAB PO SCH (09:07)
[2019-06-01] MEDS: Rivaroxaban 10 MG TAB PO SCH (09:07)
[2019-06-01] MEDS: Furosemide 20 MG TAB PO SCH (09:07)
[2019-06-01] MEDS: Potassium Chloride 10 MEQ TAB PO SCH (09:07)
[2019-06-01] MEDS: Cefepime 2 GM in Sodium Chloride 0.9% 100 ML IVPB SCH ×2 (10:13→21:30)
--- NOTE | 2019-06-01 11:12 | PDOC.HOSPP ---
- Subjective Encounter Date: 06/01/19 Encounter Time: 11:11 Subjective: Feeling better. No specific complaints. Denies GI symptoms or abd pain. - Objective Vital Signs & Weight: Vital Signs (12 hours) Temp Pulse Resp BP Pulse Ox 06/01/19 09:06 120 H 06/01/19 08:10 91 L 06/01/19 07:29 99.3 F 120 H 20 137/68 91 L 06/01/19 03:54 98.1 F 128 H 24 H 134/78 96 05/31/19 23:21 98.7 F 113 H 28 H 122/65 97 Weight Weight 267 lb I&O: 05/31/19 06/01/19 06/02/19 06:59 06:59 06:59 Intake Total 760 1350 Balance 760 1350 Result Diagrams: 06/01/19 05:08 06/01/19 05:08 Hospitalist ROS - Medication Medications: Active Medications Generic Name Dose Route Start Last Admin Trade Name Freq PRN Reason Stop Dose Admin Acetaminophen 650 mg 05/30/19 17:14 05/31/19 01:05 Tylenol Elixir PO 650 mg Q6H PRN Administration Fever/Mild Pain Allopurinol 300 mg 05/30/19 21:00 06/01/19 09:06 Zyloprim PO 300 mg BID FAIZA Administration Diltiazem HCl 240 mg 05/31/19 09:00 06/01/19 09:06 Cardizem Cd PO 240 mg DAILY FAIZA Administration Furosemide 20 mg 05/31/19 09:00 06/01/19 09:07 Lasix PO 20 mg DAILY FAIZA Administration Cefepime HCl 2 gm/ Sodium 100 mls @ 200 mls/hr 05/30/19 09:00 06/01/19 10:13 Chloride IVPB 100 mls Q12HR FAIZA Administration Lisinopril 20 mg 05/31/19 09:00 06/01/19 09:06 Zestril PO 20 mg DAILY FAIZA Administration Loratadine 10 mg 05/31/19 09:00 06/01/19 09:07 Claritin PO 10 mg DAILY FAIZA Administration Montelukast Sodium 10 mg 05/30/19 21:00 05/31/19 21:23 Singulair PO 10 mg QPM FAIZA Administration Potassium Chloride 10 meq 05/31/19 08:00 12/30/19 09:07 Klor-Con 10 PO 10 meq QAM-WM FAIZA Administration Rivaroxaban 20 mg 05/31/19 09:00 06/01/19 09:07 Xarelto PO 20 mg DAILY FAIZA Administration - Exam General Appearance: NAD, awake alert Heart: no murmur, no gallops, no rubs, irregular Respiratory: no wheezes, no ronchi, no tachypnea Respiratory - other findings: Bibasilar rales. Gastrointestinal: soft, non-tender, non-distended, normal bowel sounds, no palpable masses, no hepatomegaly, no splenomegaly, no bruit Extremities: no cyanosis, no clubbing, no edema Skin: normal turgor Neurological: cranial nerve grossly intact, normal sensation to touch, no weakness, no focal deficits, no new deficit Musculoskeletal: normal tone, normal strength, no muscle wasting Psychiatric: normal affect, normal behavior, A&O x 3 Hosp A/P (1) Gram-negative bacteremia Code(s): R78.81 - BACTEREMIA Status: Acute (2) CKD (chronic kidney disease), stage III Code(s): N18.3 - CHRONIC KIDNEY DISEASE, STAGE 3 (MODERATE) Status: Acute (3) Diabetes mellitus Code(s): E11.9 - TYPE 2 DIABETES MELLITUS WITHOUT COMPLICATIONS Status: Acute (4) HTN (hypertension) Code(s): I10 - ESSENTIAL (PRIMARY) HYPERTENSION Status: Acute (5) Acute respiratory failure with hypoxia Code(s): J96.01 - ACUTE RESPIRATORY FAILURE WITH HYPOXIA Status: Chronic (6) Afib Code(s): I48.91 - UNSPECIFIED ATRIAL FIBRILLATION Status: Chronic (7) COPD (chronic obstructive pulmonary disease) Status: Chronic (8) LAUREL (obstructive sleep apnea) Code(s): G47.33 - OBSTRUCTIVE SLEEP APNEA (ADULT) (PEDIATRIC) Status: Chronic (9) Anemia Code(s): D64.9 - ANEMIA, UNSPECIFIED Status: Acute (10) Atelectasis of both lungs Code(s): J98.11 - ATELECTASIS Status: Acute - Plan Presented after falling out of her bed. Family members reported she had AMS, but she has clear recollection of events. Febrile on the day of admission (05/30) Salmonella species bacteremia. Continue Cefepime. May be able to switch to po's, but defer to ID. Clearly needs her CPAP. Sister did bring the machine. Blood sugars well controlled. Glucose checks. Hgb improved after transfusion. Afib now with tachycardia. Transfer to monitored bed. She is relatively asymptomatic. Will give oral metoprolol at low dose. Likely has some atelectasis. IS. WBC vastly improved after Rituxan for CLL.
[2019-06-01] MEDS ORDERED: Metoprolol Tartrate 25 MG TAB PO SCH ×2 (11:15→21:00)
--- NOTE | 2019-06-01 17:04 | EKG ---
Test Reason : Blood Pressure : / mmHG Vent. Rate : 123 BPM Atrial Rate : 326 BPM P-R Int : 000 ms QRS Dur : 066 ms QT Int : 300 ms P-R-T Axes : 000 028 047 degrees QTc Int : 429 ms Atrial fibrillation with rapid ventricular response Low voltage QRS Nonspecific T wave abnormality Poor anterior R wave progression Abnormal ECG When compared with ECG of 24-MAY-2019 14:45, (Unconfirmed) Atrial fibrillation has replaced Sinus rhythm Confirmed by DR. William MACIAS ([id number]) on 06/01/2019 5:04:24 PM Referred By: RONALD Confirmed By:DR. William MACIAS
[2019-06-01] MEDS: Montelukast Sodium 10 mg Tablet PO SCH (21:31)
[2019-06-02] MEDS: Potassium Chloride 10 MEQ TAB PO SCH (09:00)
[2019-06-02] MEDS: Lisinopril 20 MG TAB PO SCH (09:01)
[2019-06-02] MEDS: Rivaroxaban 10 MG TAB PO SCH (09:01)
[2019-06-02] MEDS: Metoprolol Tartrate 25 MG TAB PO SCH ×2 (09:01→20:56)
[2019-06-02] MEDS: Furosemide 20 MG TAB PO SCH (09:02)
[2019-06-02] MEDS: Allopurinol 300 MG TAB PO SCH ×2 (09:02→20:56)
[2019-06-02] MEDS: Loratadine 10 MG TAB PO SCH (09:02)
[2019-06-02] MEDS: Cefepime 2 GM in Sodium Chloride 0.9% 100 ML IVPB SCH ×2 (09:03→20:55)
[2019-06-02] MEDS: Acetaminophen 650 MG/20.3 ML UDCUP PO PRN (15:07)
--- NOTE | 2019-06-02 16:36 | PDOC.HOSPP ---
- Subjective Subjective: Doing better today overall. Feels fairly well. - Objective Vital Signs & Weight: Vital Signs (12 hours) Temp Pulse Resp BP Pulse Ox 06/02/19 15:38 98.4 F 104 H 12 119/67 944 H 06/02/19 11:08 98.4 F 100 23 H 134/73 98 06/02/19 07:52 97.5 F L 105 H 21 H 141/72 H 98 Weight Weight 295 lb 8 oz I&O: 06/01/19 06/02/19 06/03/19 06:59 06:59 06:59 Intake Total 1350 1200 Output Total 1550 Balance 1350 -350 Result Diagrams: 06/01/19 05:08 06/01/19 05:08 Additional Labs: Accuchecks 06/02/19 06/02/19 06/01/19 10:43 06:25 21:29 POC Glucose 125 H 112 H 126 H Hospitalist ROS - Medication Medications: Active Medications Generic Name Dose Route Start Last Admin Trade Name Freq PRN Reason Stop Dose Admin Acetaminophen 650 mg 05/30/19 17:14 06/02/19 15:07 Tylenol Elixir PO 650 mg Q6H PRN Administration Fever/Mild Pain Allopurinol 300 mg 05/30/19 21:00 06/02/19 09:02 Zyloprim PO 300 mg BID FAIZA Administration Diltiazem HCl 240 mg 05/31/19 09:00 06/02/19 09:01 Cardizem Cd PO 240 mg DAILY FAIZA Administration Furosemide 20 mg 05/31/19 09:00 06/02/19 09:02 Lasix PO 20 mg DAILY FAIZA Administration Cefepime HCl 2 gm/ Sodium 100 mls @ 200 mls/hr 05/30/19 09:00 06/02/19 09:03 Chloride IVPB 100 mls Q12HR FAIZA Administration Lisinopril 20 mg 05/31/19 09:00 06/02/19 09:01 Zestril PO 20 mg DAILY FAIZA Administration Loratadine 10 mg 05/31/19 09:00 06/02/19 09:02 Claritin PO 10 mg DAILY FAIZA Administration Metoprolol Tartrate 25 mg 06/02/19 09:00 06/02/19 09:01 Lopressor PO 25 mg BID FAIZA Administration Montelukast Sodium 10 mg 05/30/19 21:00 06/01/19 21:31 Singulair PO 10 mg QPM FAIZA Administration Potassium Chloride 10 meq 05/31/19 08:00 06/02/19 09:00 Klor-Con 10 PO 10 meq QAM-WM FAIZA Administration Rivaroxaban 20 mg 05/31/19 09:00 06/02/19 09:01 Xarelto PO 20 mg DAILY FAIZA Administration - Exam General Appearance: NAD, awake alert Heart: no murmur, no gallops, no rubs, normal peripheral pulses, irregular Respiratory: CTAB, no wheezes, no rales, no ronchi, normal chest expansion, no tachypnea, normal percussion Gastrointestinal: soft, non-tender, non-distended, normal bowel sounds, no palpable masses, no hepatomegaly, no splenomegaly, no bruit Extremities: no cyanosis, no clubbing, no edema Neurological: no focal deficits Psychiatric: normal affect, normal behavior, A&O x 3 Hosp A/P (1) Salmonella bacteremia Code(s): R78.81 - BACTEREMIA Status: Acute (2) CLL (chronic lymphocytic leukemia) Code(s): C91.10 - CHRONIC LYMPHOCYTIC LEUK OF B-CELL TYPE NOT ACHIEVE REMIS Status: Acute (3) Afib Code(s): I48.91 - UNSPECIFIED ATRIAL FIBRILLATION Status: Chronic (4) CKD (chronic kidney disease), stage III Code(s): N18.3 - CHRONIC KIDNEY DISEASE, STAGE 3 (MODERATE) Status: Acute (5) Diabetes mellitus Code(s): E11.9 - TYPE 2 DIABETES MELLITUS WITHOUT COMPLICATIONS Status: Acute (6) HTN (hypertension) Code(s): I10 - ESSENTIAL (PRIMARY) HYPERTENSION Status: Acute (7) Acute respiratory failure with hypoxia Code(s): J96.01 - ACUTE RESPIRATORY FAILURE WITH HYPOXIA Status: Chronic (8) COPD (chronic obstructive pulmonary disease) Status: Chronic (9) LAUREL (obstructive sleep apnea) Code(s): G47.33 - OBSTRUCTIVE SLEEP APNEA (ADULT) (PEDIATRIC) Status: Chronic (10) Anemia Code(s): D64.9 - ANEMIA, UNSPECIFIED Status: Acute (11) Atelectasis of both lungs Code(s): J98.11 - ATELECTASIS Status: Acute - Plan Presented after falling out of her bed. Family members reported she had AMS, but she has clear recollection of events. Febrile on the day of admission (05/30) Salmonella species bacteremia. Continue Cefepime. May be able to switch to po's, but defer to ID. Doing much better with CPAP. Blood sugars well controlled. Glucose checks. Hgb improved after transfusion. Afib now with tachycardia. Increased the dose of metoprolol. Improved overall, but still around 100. Likely has some atelectasis. IS. WBC vastly improved after Rituxan for CLL.
[2019-06-02] MEDS: Montelukast Sodium 10 mg Tablet PO SCH (20:56)
[2019-06-03 05:10] LABS: Anion Gap 12 mmol/L (10-20); BUN (Urea Nitrogen) 16 mg/dL (9.8-20.1); Calc. Creatinine Clearance 73 mL/min (70-130); Calcium 8.4 mg/dL (7.8-10.44); Carbon Dioxide 27 mmol/L (23-31); Chloride 107 mmol/L (98-107); Estimated GFR-MDRD 37; Glucose 100 mg/dL (80-115); Potassium 3.5 mmol/L (3.5-5.1); Sodium 142 mmol/L (136-145)
[2019-06-03 05:12] LABS: Hemoglobin 7.7 g/dL (12.0-16.0); Lymphocytes 73 % (21-51); MDiff Complete? YES; Mean Corpuscular HGB CONC 30.9 g/dL (32.0-36.0); Mean Corpuscular Hemoglobin 28.4 pg (27.0-31.0); Mean Corpuscular Volume 92.1 fL (78.0-98.0); Mean Platelet Volume 9.9 fL (7.4-10.4); Monocytes 1 % (0-10); Neutrophil 26 % (42-75); Platelet Count 120 thou/uL (130-400); Platelet Morphology Comment Appears Decreased; RBC Distribution Width 15.9 % (11.5-14.5); Red Blood Cell (RBC) Count 2.72 mill/uL (4.20-5.40); White Blood Cell (WBC) Count 24.9 thou/uL (4.8-10.8)
[2019-06-03] MEDS ORDERED: Sodium Chloride 0.9% 10 ML ONE (07:56)
[2019-06-03] MEDS: Metoprolol Tartrate 25 MG TAB PO SCH ×2 (08:40→20:58)
[2019-06-03] MEDS: Cefepime 2 GM in Sodium Chloride 0.9% 100 ML IVPB SCH ×2 (08:40→20:58)
[2019-06-03] MEDS: Rivaroxaban 10 MG TAB PO SCH (08:41)
[2019-06-03] MEDS: Furosemide 20 MG TAB PO SCH (08:41)
[2019-06-03] MEDS: Allopurinol 300 MG TAB PO SCH ×2 (08:41→20:57)
[2019-06-03] MEDS: Potassium Chloride 10 MEQ TAB PO SCH (08:42)
[2019-06-03] MEDS: Lisinopril 20 MG TAB PO SCH (08:42)
[2019-06-03] MEDS: Loratadine 10 MG TAB PO SCH (08:43)
[2019-06-03] MEDS ORDERED: Sodium Chloride 0.9% 500 ML IV SCH (14:00)
--- NOTE | 2019-06-03 15:14 | CON ---
DATE OF CONSULTATION: 06/03/2019 CONSULTING PHYSICIAN: Connor Li MD REASON FOR CONSULTATION: Acute kidney injury. REASON FOR ADMISSION: Fall. HISTORY OF PRESENT ILLNESS: A 64-year-old female with history of CLL, CAN, CKD, AFib, COPD, came to the hospital with above complaints, was found to have elevated creatinine. Nephrology was consulted. The patient said she had a fall after new medicines. No chest pain or no palpitation reported to me. No fever or chills. No nausea, vomiting, or diarrhea. PAST MEDICAL HISTORY: Positive for CLL, CKD, AFib, COPD, obstructive sleep apnea, morbid obesity, hypertension, and type 2 diabetes. PAST SURGICAL HISTORY: Hysterectomy, thyroidectomy, and herniorrhaphy. HOME MEDICATIONS: 1. Xarelto. 2. Lyrica. 3. Allopurinol. 4. Tradjenta. 5. Potassium. 6. Lisinopril. 7. Montelukast. 8. Diltiazem. 9. Cetirizine. 10. Lasix. ALLERGIES: NO KNOWN DRUG ALLERGIES. SOCIAL HISTORY: No smoking, alcohol, or illicit drug use. FAMILY HISTORY: No history of kidney disease. REVIEW OF SYSTEMS: CONSTITUTIONAL: Negative for weight loss or gain, ability to conduct usual activities. SKIN: Negative for rash, itching. EYES: Negative for double vision, pain. ENT/MOUTH: Negative for nose bleeding, neck stiffness, pain, tenderness. CARDIOVASCULAR: Negative for palpitations, dyspnea on exertion, orthopnea. RESPIRATORY: Negative for shortness of breath, wheezing, cough, hemoptysis, fever or night sweats. GASTROINTESTINAL: Negative for poor appetite, abdominal pain, heartburn, nausea, vomiting, constipation, or diarrhea. GENITOURINARY: Negative for urgency, frequency, dysuria, nocturia. MUSCULOSKELETAL: Negative for pain, swelling. NEUROLOGIC/PSYCHIATRIC: Negative for anxiety, depression. ALLERGY/IMMUNOLOGIC: Negative for skin rash, bleeding tendency. PHYSICAL EXAMINATION: GENERAL: This is a morbidly obese female, in no apparent distress. VITAL SIGNS: Temperature 98.4, pulse 89, respiratory rate 20, and blood pressure 126/71. HEENT: Atraumatic, normocephalic. Oral mucosa is moist. NECK: Supple. CV: S1 and S2. Rate and rhythm RESPIRATORY: Clear. GASTROINTESTINAL: Abdomen is soft. MUSCULOSKELETAL: 1+ edema. DERMATOLOGIC: No skin rash. NEUROLOGICAL: Alert and awake. PSYCHIATRIC: Mood and affect are normal. LABORATORY DATA: Hemoglobin is 7.7. Potassium 3.5, BUN is 16, and creatinine is 1.6. ASSESSMENT AND PLAN: 1. Acute kidney injury, most likely secondary to volume depletion. We will stop lisinopril and Lasix. 2. Edema, controlled. 3. History of hypertension, stable. 4. Anemia, rule out any bleed, seems to be chronic anemia and normocytic. We will check iron levels and we will consider Epogen also. The patient needs to follow up with a CKD Clinic for CKD care. The patient was advised to do so. We will follow. Thank you for the consult. Job ID: [id number]
[2019-06-03] MEDS: Montelukast Sodium 10 mg Tablet PO SCH (20:58)
--- NOTE | 2019-06-03 21:19 | PDOC.HOSPP ---
- Subjective Subjective: Feels well. No complaints. - Objective Vital Signs & Weight: Vital Signs (12 hours) Temp Pulse Pulse Pulse Resp BP BP 06/03/19 18:50 97.9 F 105 H 20 06/03/19 18:28 144 H 130 H 166/78 H 164/81 H 06/03/19 16:20 98.0 F 97 20 06/03/19 12:15 98.4 F 89 20 06/03/19 11:00 BP BP Pulse Ox 06/03/19 18:50 134/69 97 06/03/19 18:28 06/03/19 16:20 167/78 H 99 06/03/19 12:15 126/71 95 06/03/19 11:00 97 Weight Weight 294 lb 1.6 oz I&O: 06/02/19 06/03/19 06/04/19 06:59 06:59 06:59 Intake Total 1200 1420 1685 Output Total 0073 173 1912 Balance -350 620 -415 Result Diagrams: 06/03/19 04:23 06/03/19 04:23 Additional Labs: Accuchecks 06/03/19 06/03/19 06/03/19 17:13 10:37 05:19 POC Glucose 109 121 H 97 Hospitalist ROS - Medication Medications: Active Medications Generic Name Dose Route Start Last Admin Trade Name Freq PRN Reason Stop Dose Admin Acetaminophen 650 mg 05/30/19 17:14 06/02/19 15:07 Tylenol Elixir PO 650 mg Q6H PRN Administration Fever/Mild Pain Allopurinol 300 mg 05/30/19 21:00 06/03/19 20:57 Zyloprim PO 300 mg BID FAIZA Administration Diltiazem HCl 240 mg 05/31/19 09:00 06/03/19 08:41 Cardizem Cd PO 240 mg DAILY FAIZA Administration Cefepime HCl 2 gm/ Sodium 100 mls @ 200 mls/hr 05/30/19 09:00 06/03/19 20:58 Chloride IVPB 100 mls Q12HR FAIZA Administration Sodium Chloride 500 mls @ 50 mls/hr 06/03/19 14:00 06/03/19 16:32 Normal Saline 0.9% IV 06/03/19 23:59 500 mls .Q10H FAIZA Administration Loratadine 10 mg 05/31/19 09:00 06/03/19 08:43 Claritin PO 10 mg DAILY FAIZA Administration Metoprolol Tartrate 25 mg 06/02/19 09:00 06/03/19 20:58 Lopressor PO 25 mg BID FAIZA Administration Montelukast Sodium 10 mg 05/30/19 21:00 06/03/19 20:58 Singulair PO 10 mg QPM FAIZA Administration Potassium Chloride 10 meq 05/31/19 08:00 06/03/19 08:42 Klor-Con 10 PO 10 meq QAM-WM FAIZA Administration Rivaroxaban 20 mg 05/31/19 09:00 06/03/19 08:41 Xarelto PO 20 mg DAILY FAIZA Administration - Exam General Appearance: NAD, awake alert General - other findings: Morbidly obese. Heart: RRR, no murmur, no gallops, no rubs, normal peripheral pulses Respiratory: CTAB, no wheezes, no rales, no ronchi, normal chest expansion, no tachypnea, normal percussion Gastrointestinal: soft, non-tender, non-distended, normal bowel sounds, no palpable masses, no hepatomegaly, no splenomegaly, no bruit Skin: normal turgor, no lesions, no rashes Psychiatric: normal affect, normal behavior, A&O x 3 Hosp A/P (1) Salmonella bacteremia Code(s): R78.81 - BACTEREMIA Status: Acute (2) CLL (chronic lymphocytic leukemia) Code(s): C91.10 - CHRONIC LYMPHOCYTIC LEUK OF B-CELL TYPE NOT ACHIEVE REMIS Status: Acute (3) Afib Code(s): I48.91 - UNSPECIFIED ATRIAL FIBRILLATION Status: Chronic (4) CKD (chronic kidney disease), stage III Code(s): N18.3 - CHRONIC KIDNEY DISEASE, STAGE 3 (MODERATE) Status: Acute (5) Diabetes mellitus Code(s): E11.9 - TYPE 2 DIABETES MELLITUS WITHOUT COMPLICATIONS Status: Acute (6) HTN (hypertension) Code(s): I10 - ESSENTIAL (PRIMARY) HYPERTENSION Status: Acute (7) Acute respiratory failure with hypoxia Code(s): J96.01 - ACUTE RESPIRATORY FAILURE WITH HYPOXIA Status: Chronic (8) COPD (chronic obstructive pulmonary disease) Status: Chronic (9) LAUREL (obstructive sleep apnea) Code(s): G47.33 - OBSTRUCTIVE SLEEP APNEA (ADULT) (PEDIATRIC) Status: Chronic (10) Anemia Code(s): D64.9 - ANEMIA, UNSPECIFIED Status: Acute (11) Atelectasis of both lungs Code(s): J98.11 - ATELECTASIS Status: Acute - Plan Presented after falling out of her bed. Family members reported she had AMS, but she has clear recollection of events. Febrile on the day of admission (05/30) Salmonella species bacteremia. Continue Cefepime. May be able to switch to po's, but defer to ID. Doing much better with CPAP. Blood sugars well controlled. Glucose checks. Hgb improved after transfusion. Afib now with tachycardia. Increased the dose of metoprolol. Improved overall, but still around 100. May need further titration. Likely has some atelectasis. IS. WBC vastly improved after Rituxan for CLL. Acute renal insufficiency. Nephrology consult appreciated. Recheck labs in am. If improved, consider discharge.
[2019-06-04 05:34] LABS: Anion Gap 13 mmol/L (10-20); BUN (Urea Nitrogen) 17 mg/dL (9.8-20.1); Calc. Creatinine Clearance 71 mL/min (70-130); Calcium 8.4 mg/dL (7.8-10.44); Carbon Dioxide 23 mmol/L (23-31); Chloride 107 mmol/L (98-107); Estimated GFR-MDRD 36; Glucose 104 mg/dL (80-115); Iron 43 ug/dL (50-170); Iron Binding Capacity, Total 248 mcg/dL (265-497); Potassium 3.4 mmol/L (3.5-5.1); Sodium 140 mmol/L (136-145)
[2019-06-04] MEDS: Potassium Chloride 10 MEQ TAB PO SCH (08:26)
[2019-06-04] MEDS: Allopurinol 300 MG TAB PO SCH (08:27)
[2019-06-04] MEDS: Cefepime 2 GM in Sodium Chloride 0.9% 100 ML IVPB SCH (08:27)
[2019-06-04] MEDS: Loratadine 10 MG TAB PO SCH (08:27)
[2019-06-04] MEDS: Rivaroxaban 10 MG TAB PO SCH (08:27)
[2019-06-04] MEDS: Metoprolol Tartrate 25 MG TAB PO SCH (08:27)
[2019-06-04 11:22] VITALS: TEMP 97.8
--- NOTE | 2019-06-04 12:31 | PQF ---
PRITI ROMAN DAVID R MD [id number] CLINICAL DOCUMENTATION IMPROVEMENT CLARIFICATION FORM: ICD-10 Updated PLEASE DO AN ADDENDUM TO THE PROGRESS NOTE WITH ANY DOCUMENTATION UPDATES OR ADDITIONS AND CARRY THROUGH TO DC SUMMARY. THANK YOU. DATE: 06/04/19 ATTN: DR. Juan CARDENAS Please exercise your independent, professional judgment in responding to the clarification form. Clinical indicators are provided on the bottom of this form for your review. Please check appropriate box(es): [ ] Sepsis due to: (Pna, UTI, gangrenous gall bladder, etc.) [ ] Severe sepsis with acute organ dysfunction of: (Examples: respiratory failure, encephalopathy, acute kidney failure, other) [ ] Septic Shock [ ] Localized infection without sepsis [ ] Other diagnosis [ x ] Unable to determine In addition, please specify: Present on Admission (POA): [ ] Yes [ ] No [ ] Unable to determine For continuity of documentation, please document condition throughout progress notes and discharge summary. Thank You. CLINICAL INDICATORS - SIGNS / SYMPTOMS / LABS / RESULTS AND LOCATION IN MR WBC 22.4 > 22.7 > 24.9 05/30 PULSE 88-120 05/31 PULSE 96-128 06/01 PULSE 92-128 06/02 PULSE 102-113 06/03 PULSE 102-180 05/30 ED REPORT HPI: PRESENTS TO ED FROM [facility] FOR EVAL OF SEPSIS. PT REPORTS SHE WAS DC'D FROM THE HOSPITAL ON 05/28/19 AND PRESENTED TO THE ED TODAY FOR MENTAL STATUS CHANGE AND FALL. PER THE PT'S MEDICAL RECORD SHE WAS ADMITTED FOR SEPSIS AND CLL. PT WAS FEBRILE AT [facility] AND GIVEN ABX AND FLUIDS. ED PHYSICIAN FINAL DX: SEPSIS, AMS 05/30/19 H&P (RONALD) IMPRESSION AND PLAN: 1). FEBRILE ILLNESS IN A PT WITH CHRONIC LYMPHOCYTIC LEUKEMIA, STATUS POST RITUNXAN THERAPY. SHE IS TACHYCARDIC AND HER WHITE COUNT IS ELEVATED. NEITHER OF THOSE ARE RELIABLE INDICATORS OF SEPSIS BC SHE HAS UNDERLYING AFIB AND CLL. HOWEVER, IN THIS SITUATION HAVE TO ASSUME SEPSIS. CONTINUE TO COVER EMPIRICALLY WITH VANCOMYCIN AND CEFEPIME. 05/30 CONSULT (STELLA) FEVER WITH COUGH, NO FOCAL FINDINGS, THE DIFFERENTIAL DX INCLUDES VIRAL SYNDROME VS TRANSIENT BACTEREMIA VS FEVER FROM MALIGNANCY ITSELF. 05/31 PN (FICKLEN) A/P: 1). GRAM-NEGATIVE BACTEREMIA; UNKNOWN SOURCE. DENIES ABD PAIN. UA DID NOT LOOK BAD. CXR WITH NO INFILTRATE. CONTINUE VANC/CEFEPIME 06/01 -06/02 PN (FICKLEN) A/P: 1). GRAM-NEGATIVE BACTEREMIA; SALMONELLA SPECIES RISK: DX CHRONIC LYMPHOCYTIC LEUKEMIA, STATUS POST RITUNXAN THERAPY, ACUTE ON CHRONIC RESPIRATORY FAILURE WITH HYPOXIA, CAN, CKD ( PN / FICKLEN ) 06/03 TREATMENTS: ID CONSULT (STELLA/ 05/30) SERIAL LABS (05/31- PRESENT) CEFEPIME IV ( 05/30- PRESENT) VANCOMYCIN IV ( 05/30- 06/01) THANK YOU! QUINTEN (This form is maintained as a part of the permanent medical record) 2014 [employer] All Rights Reserved [email or web address] [phone] MTDD
[2019-06-04 14:39] VITALS: BP 144/65
--- NOTE | 2019-06-04 15:35 | PRG ---
DATE OF SERVICE: 06/04/2019 SUBJECTIVE: Patient was seen and examined at bedside and overnight events noted. Patient denies any shortness of breath or chest pain or palpitation. No history of nausea or vomiting or diarrhea or fever or chills or cramps. OBJECTIVE: GENERAL: This is an obese female, in no apparent distress. VITAL SIGNS: Temperature 97.8, pulse 72, respiratory rate 18, and blood pressure 113/63. HEENT: Atraumatic, normocephalic. Oral mucosa is moist NECK: Supple. CARDIOVASCULAR: S1, S2 heard. Rate and rhythm regular. RESPIRATORY: Clear to auscultation. GASTROINTESTINAL: Abdomen is soft. MUSCULOSKELETAL: No tenderness. No edema. DERMATOLOGIC: No skin rash. NEUROLOGIC: Alert and awake and oriented X3. No focal neurologic deficits. Moving all the extremities. PSYCHIATRIC: Mood and affect normal. LABORATORY DATA: Potassium 3.4, BUN is 17, creatinine 1.7. ASSESSMENT AND PLAN: 1. Acute kidney injury on chronic kidney disease, stage 3, stable. 2. Edema. We will stop Lasix. 3. History of hypertension. 4. Anemia. Rule out any bleed. I advised to follow up with the CKD clinic in 1 to 2 weeks and we will follow. Job ID: [id number]
== END 2019-06-04 14:57 | disposition home or self-care (01) | DRG 867 ==
LOC: ERS 03:36 → OBSVTOIN 04:56 → SJJU 04:56 → 2NO 06-01 12:40
PROVIDERS: ADMIT Emergency Medicine; ATTEND Internal Medicine
DX: A02.9 Salmonella infection, unspecified (principal); J96.01 Acute respiratory failure with hypoxia; C91.10 Chronic lymphocytic leukemia of B-cell type not having achieved remission; I48.20 Chronic atrial fibrillation, unspecified; Z68.42 Body mass index [BMI] 45.0-49.9, adult; E66.2 Morbid (severe) obesity with alveolar hypoventilation; J98.11 Atelectasis; N17.9 Acute kidney failure, unspecified; R78.81 Bacteremia; E78.5 Hyperlipidemia, unspecified; E78.00 Pure hypercholesterolemia, unspecified; M10.9 Gout, unspecified; J44.9 Chronic obstructive pulmonary disease, unspecified; D63.0 Anemia in neoplastic disease; E11.22 Type 2 diabetes mellitus with diabetic chronic kidney disease; N18.3 Chronic kidney disease, stage 3 (moderate); I12.9 Hypertensive chronic kidney disease with stage 1 through stage 4 chronic kidney disease, or unspecified chronic kidney disease; E86.9 Volume depletion, unspecified; D69.6 Thrombocytopenia, unspecified; Z91.048 Other nonmedicinal substance allergy status; Z99.89 Dependence on other enabling machines and devices; Z90.710 Acquired absence of both cervix and uterus; Z99.81 Dependence on supplemental oxygen; Z79.899 Other long term (current) drug therapy; Z79.02 Long term (current) use of antithrombotics/antiplatelets
CPT/HCPCS: 36415; 36416; 36430; 80048; 81003; 81015; 82728; 83540; 83550; 85025; 86850; 86900; 86901; 87633; 93005; 93010; 94660; J0692; J3370; J3490; P9016

== ENCOUNTER 2019-06-26 11:56 | Observation (INO) | payer MEDICARE ==
[2019-06-26 12:39] LABS: Hemoglobin 9.1 g/dL (12.0-16.0); Mean Corpuscular HGB CONC 30.7 g/dL (32.0-36.0); Mean Corpuscular Hemoglobin 28.4 pg (27.0-31.0); Mean Corpuscular Volume 92.7 fL (78.0-98.0); Mean Platelet Volume 8.4 fL (7.4-10.4); Platelet Count 176 thou/uL (130-400); RBC Distribution Width 16.8 % (11.5-14.5); Red Blood Cell (RBC) Count 3.18 mill/uL (4.20-5.40); White Blood Cell (WBC) Count 60.7 thou/uL (4.8-10.8)
--- NOTE | 2019-06-26 12:47 | RAD ---
EXAM: Single view of the chest HISTORY: Chest pain and palpitations COMPARISON: CT chest 05/19/2019 and chest x-ray 05/29/2019 FINDINGS: Single view of the chest shows a normal sized cardiomediastinal silhouette. There is stabl e widening of the superior mediastinum. There is no evidence of consolidation, mass, or pleural effusion. The bones are unremarkable. IMPRESSION: 1. No evidence of acute cardiopulmonary disease 2. Stable widening of the superior mediastinum likely represents the multiple lymph nodes seen on CT.
[2019-06-26 12:51] LABS: Anisocytosis SLIGHT = 6-15 cells (100X) (0-5/hpf); Band 2 % (5-11); Eosinophils 1 % (0-10); Lymphocytes 93 % (21-51); MDiff Complete? YES; Monocytes 2 % (0-10); Neutrophil 2 % (42-75); Ovalocytes SLIGHT = 2-5 cells (100X) (0-1/hpf); Platelet Morphology Comment Appears Adequate; Polychromasia SLIGHT = 2-3 cells (100X) (0-2/hpf); Tear Drops SLIGHT = 2-5 cells (100X) (0-1/hpf)
[2019-06-26 12:56] LABS: ALT (SGPT) Less than 7 U/L (8-55); AST (SGOT) 22 U/L (5-34); Albumin 3.9 g/dL (3.4-4.8); Alkaline Phosphatase 112 U/L (40-110); Anion Gap 13 mmol/L (10-20); BUN (Urea Nitrogen) 7 mg/dL (9.8-20.1); Bilirubin, Total 0.7 mg/dL (0.2-1.2); Calc. Creatinine Clearance 0 mL/min (70-130); Calcium 8.6 mg/dL (7.8-10.44); Carbon Dioxide 29 mmol/L (23-31); Chloride 106 mmol/L (98-107); Estimated GFR-MDRD 45; Globulin 2.2 g/dL (2.4-3.5); Glucose 106 mg/dL (80-115); Magnesium 1.7 mg/dL (1.6-2.6); Potassium 3.8 mmol/L (3.5-5.1); Protein, Total 6.1 g/dL (6.0-8.3); Sodium 144 mmol/L (136-145)
[2019-06-26 16:09] LABS: Troponin I Less than 0.010 ng/mL (< 0.028)
[2019-06-26] MEDS ORDERED: Acetaminophen 325 MG TAB PO PRN (16:55)
[2019-06-26] MEDS ORDERED: HumaLOG 300 UNITS/3 ML VIAL SC PRN (16:55)
[2019-06-26] MEDS ORDERED: Dextrose 50% Abboject 50 ML SYRINGE SLOW IVP PRN (16:55)
[2019-06-26] MEDS ORDERED: Guaifenesin DM 100-10/5 ML UDCUP PO PRN (16:55)
[2019-06-26] MEDS ORDERED: Ondansetron PF 4 MG/2 ML Vial IVP PRN (16:55)
[2019-06-26] MEDS ORDERED: Senokot S 8.6-50 MG TAB PO PRN (16:55)
[2019-06-26] MEDS ORDERED: Dextrose 5% in Water 1,000 ML IV PRN (16:55)
--- NOTE | 2019-06-26 19:46 | HP ---
REASON FOR ADMISSION: Right-sided chest pain. HISTORY OF PRESENTING ILLNESS: The patient gives history of having shortness of breath this morning and was trying to fix her breakfast. She then ate and slept for a while. She woke up and she was still hurting in her right chest. It is almost near the axilla. She called her sister who in turn got EMS and the patient was brought here. The right axillary pain lasted for nearly 4 hours. She got medications in the ER, which has currently relieved her pain. The patient states yesterday evening, she got similar pain, but it stopped on its own. No cough or expectoration. No palpitations or PND. She has known history of sleep apnea and uses CPAP at home. She states she has had a stress test less than a year back in Dr. Monet's office, which was normal as far as she knows. She has known history of CLL and follows up with Dr. Berlin Weiss. She is waiting for her cancer medications to come in the mail to start treatment for the same. She also mentions that she has had a relapse in her CLL. PAST MEDICAL AND SURGICAL HISTORY: History of CLL, on chemotherapy; diabetes mellitus type 2, hypertension, morbid obesity, sleep apnea, chronic atrial fibrillation, dyslipidemia, gout, ventral hernia repair in 2013 and 2016 as well , hysterectomy, thyroidectomy. CURRENT MEDICATIONS: The patient is on: 1. Lasix 20 mg daily. 2. Cardizem CD 240 mg daily. 3. Potassium chloride 20 mEq p.o. daily. 4. Xarelto 20 mg daily. 5. Ferrous sulfate 325 mg daily. 6. Lisinopril 20 mg daily. 7. Atorvastatin 10 mg daily. 8. Allopurinol 300 mg daily. ALLERGIES: LYRICA AND ADHESIVE TAPE. PERSONAL HISTORY: Does not abuse alcohol or drugs. No history of smoking. She lives with her sister. FAMILY HISTORY: Mother in her 80s. She had history of pericardial effusion. She did not have any rheumatologic diseases. Father in his 60s, he had massive CVA. CODE STATUS: Full. Power of criminal attorney is her sister. REVIEW OF SYSTEMS: CONSTITUTIONAL: Negative for weight loss or gain, ability to conduct usual activities. SKIN: Negative for rash, itching. EYES: Negative for double vision, pain. ENT/MOUTH: Negative for nose bleeding, neck stiffness, pain, tenderness. CARDIOVASCULAR: Negative for palpitations, dyspnea on exertion, orthopnea. RESPIRATORY: Negative for shortness of breath, wheezing, cough, hemoptysis, fever or night sweats. GASTROINTESTINAL: Negative for poor appetite, abdominal pain, heartburn, nausea , vomiting, constipation, or diarrhea. GENITOURINARY: Negative for urgency, frequency, dysuria, nocturia. MUSCULOSKELETAL: Negative for pain, swelling. NEUROLOGIC/PSYCHIATRIC: Negative for anxiety, depression. ALLERGY/IMMUNOLOGIC: Negative for skin rash, bleeding tendency. Otherwise, negative except as stated per HPI. PHYSICAL EXAMINATION: GENERAL: The patient is a 64-year-old female, who is currently not in any acute distress. VITAL SIGNS: Blood pressure 146/104, pulse 116 per minute, respiratory rate 22 per minute, temperature 98.1 degrees Fahrenheit, saturating 94% on room air. NECK: Supple. No elevated JVD. HEENT: Eyes; extraocular muscles intact. Oral cavity, mucous membranes are moist. No exudates or congestion. CARDIOVASCULAR: S1 and S2 heard. Irregular rhythm. RESPIRATORY: Air entry 1+ bilateral. Scattered rales in the infrascapular area. Rhonchi plus. ABDOMEN: Soft. Bowel sounds heard. No tenderness, rigidity, or guarding. The patient has protuberant abdomen which is chronic per patient. EXTREMITIES: There is 2+ peripheral edema. No calf tenderness. VASCULAR SYSTEM: Peripheral pulses 1+ bilateral. No ischemic ulcerations or gangrene. CENTRAL NERVOUS SYSTEM: No gross focal deficits noted. The patient is oriented well. PSYCHIATRIC: The patient's mood is euthymic. No hallucinations or delusions. LABORATORY DATA: Chest x-ray done shows no acute cardiopulmonary disease. She has stable widening of superior mediastinum, likely representing multiple lymph nodes when compared to prior CT chest done in May of last year. EKG done shows atrial fibrillation at 113 beats per minute, her EKG shows low voltage. BUN 7, creatinine 1.4, serum glucose 106. Electrolytes stable. Magnesium 1.7. Troponin x2 negative. Albumin is 3.9. White count of 60.7, H and H of 9 and 29, platelet count 176, MCV 92, 2% neutrophils, 2% bands, 93% lymphocytes. There are marked smudge cells seen. CLINICAL IMPRESSION AND PLAN: The patient has right axillary pain, likely from one of the lymph nodes that she has. She has received rituximab in the past for her chronic lymphocytic leukemia. She follows up with Dr. Berlin Wesis. The patient says her medications are in the mail, which are part of her chemotherapy regimen. Her last white count was around 25,000. Now, it has risen up to 60,000 this admission. We will obtain consultation with Oncology. She has had 2 sets of troponin which are negative. Chest x-ray does not show any infiltrate. We will not do any further workup for acute coronary syndrome, which is unlikely. Her last echo in May showed an EF of 60% to 65%, with normal diastolic function as well. I gave the option if the patient wanted to go home, but she states that she is an hour away and her sister has left her. If the patient remains stable and if Oncology does not want any further intervention for elevated white count, which is slightly higher than her Jhon counts, she can be safely discharged in the morning. She has multiple medical issues and is morbidly obese as well. We will keep her on CPAP at her home settings. We will continue allopurinol, Cardizem CD, Lasix, potassium chloride, Zestril, and Xarelto as before. We will also continue her Singulair as before. Job ID: [id number] [facility]
[2019-06-26 21:32] VITALS: BMI 43.0
[2019-06-26] MEDS: Famotidine 20 MG TAB PO SCH (22:13)
[2019-06-26] MEDS: Allopurinol 300 MG TAB PO SCH (22:13)
[2019-06-26] MEDS ORDERED: Lisinopril 10 MG TAB PO SCH (22:45)
[2019-06-27 04:42] LABS: Hemoglobin 8.3 g/dL (12.0-16.0); Mean Corpuscular HGB CONC 30.3 g/dL (32.0-36.0); Mean Corpuscular Volume 92.6 fL (78.0-98.0); Mean Platelet Volume 8.2 fL (7.4-10.4); Platelet Count 172 thou/uL (130-400); RBC Distribution Width 16.8 % (11.5-14.5); Red Blood Cell (RBC) Count 2.95 mill/uL (4.20-5.40); White Blood Cell (WBC) Count 61.7 thou/uL (4.8-10.8)
[2019-06-27 04:58] LABS: Anion Gap 13 mmol/L (10-20); BUN (Urea Nitrogen) 6 mg/dL (9.8-20.1); Calc. Creatinine Clearance 84 mL/min (70-130); Calcium 8.4 mg/dL (7.8-10.44); Carbon Dioxide 29 mmol/L (23-31); Chloride 105 mmol/L (98-107); Estimated GFR-MDRD 46; Glucose 82 mg/dL (80-115); Potassium 3.7 mmol/L (3.5-5.1); Sodium 143 mmol/L (136-145)
[2019-06-27 05:25] LABS: Blast 2 % (0-0); Elliptocytes SLIGHT = 2-5 cells (100X) (0-1/hpf); Lymphocytes 86 % (21-51); MDiff Complete? YES; Monocytes 1 % (0-10); Neutrophil 1 % (42-75); Platelet Morphology Comment Appears Adequate; Reactive Lymphocytes 10 % (0-10)
[2019-06-27] MEDS ORDERED: Potassium Chloride 10 MEQ TAB PO SCH (08:00)
[2019-06-27] MEDS: Famotidine 20 MG TAB PO SCH (08:36)
[2019-06-27] MEDS: Allopurinol 300 MG TAB PO SCH (08:36)
[2019-06-27] MEDS ORDERED: Furosemide 20 MG TAB PO SCH (09:00)
[2019-06-27] MEDS ORDERED: Montelukast Sodium 10 mg Tablet PO SCH (09:00)
[2019-06-27] MEDS ORDERED: Lisinopril 20 MG TAB PO SCH (09:00)
[2019-06-27 15:30] VITALS: TEMP 98.3
[2019-06-27 15:43] LABS: Hemoglobin 8.7 g/dL (12.0-16.0); Platelet Count 186 thou/uL (130-400)
[2019-06-27 16:28] VITALS: BP 134/68
[2019-06-27] MEDS ORDERED: Rivaroxaban 10 MG TAB PO SCH (17:00)
--- NOTE | 2019-06-27 17:58 | CON ---
DATE OF CONSULTATION: REASON FOR CONSULT: CLL. HISTORY OF PRESENT ILLNESS: Ms. Vaughn is a pleasant 64-year-old female who has CLL and is status post has been on bendamustine and Rituxan in 2014. She presented to the hospital in May with chest pain and shortness of breath. She was treated for atrial fibrillation and COPD exacerbation. She received one dose of Rituxan in the hospital and had severe nausea and vomiting with a test dose. The rest had to be slowly infused over several hours. She was followed up in our office by Dr. Weiss and prescribed Acalabrutinib monotherapy since she tolerated Rituxan so poorly. She is currently waiting for this medication from the specialty pharmacy. Yesterday, she woke up and was having pain in the right chest area. She called EMS and was brought to the emergency room. Chest x-ray showed no acute process. Her white count on arrival was 60,000, from 25,000 shortly after the Rituxan treatment. However, much improved from the 394,000, she was prior to the Rituxan dose. Currently, she denies any chest pain. No shortness of breath. No abdominal discomfort. She complains of bilateral lower extremity swelling. PAST MEDICAL HISTORY: 1. Recurrent CLL status post one dose of Rituxan. 2. Diabetes mellitus 2. 3. Hypertension. 4. Atrial fibrillation. 5. Arthritis. 6. COPD. 7. Sleep apnea. 8. Hypothyroidism. 9. Gout. 10. Obesity. PAST SURGICAL HISTORY: 1. Hysterectomy. 2. Partial thyroidectomy. 3. Hernia repair. 4. Right breast biopsy for CLL. ALLERGIES: NO KNOWN DRUG ALLERGIES. HOME MEDICATIONS: 1. Allopurinol. 2. Atorvastatin. 3. Cartia XT. 4. Iron. 5. Lasix. 6. Lisinopril. 7. Montelukast. 8. Potassium chloride. 9. Tradjenta. 10. Xarelto. FAMILY HISTORY: No history of cancer. SOCIAL HISTORY: , has one daughter. Lives at home with her sister. No smoking, alcohol, or illicit drug use. REVIEW OF SYSTEMS: A 10-point review of systems is negative except for noted in HPI. PHYSICAL EXAMINATION: VITAL SIGNS: Temperature is 97.4, pulse is 100, respiratory rate 16, BP is 151/65. She is 93% on room air. GENERAL: Well-developed, well-nourished female, in no acute distress. HEENT: Normocephalic, atraumatic. Pupils are equal and reactive to light. NECK: Supple. CV: Regular rate and rhythm. LUNGS: Clear. ABDOMEN: Obese, nontender. Bowel sounds are positive. EXTREMITIES: No clubbing, cyanosis. She has 1+ bilateral lower extremity edema. SKIN: No rash. HEMATOLOGICAL: No petechiae or purpura. NEUROLOGICAL: Nonfocal. PERTINENT LABS AND X-RAYS: Current WBCs are 61.7, hemoglobin 8.3, hematocrit 27.3, platelet count 172,000, she has 86% lymphocytes, 10% reactive lymphocytes, 2% blasts on smear. Sodium is 143, potassium 3.7, chloride is 105, CO2 is 29, BUN is 6, creatinine 0.39, calcium is 8.4, bilirubin is 0.7, AST is 22, ALT is less than 7, and alkaline phosphatase is 112. Serum total protein is 6.1, albumin 3.9, globulin 2.2. Troponin is negative. Radiology per HPI. ASSESSMENT: Chronic lymphocytic leukemia. DISCUSSION: The patient feels her chest pain is related to her anxiety. She currently is having no pain. She has no evidence of leukostasis. Her white count has improved from 394,000 to 61,000 with one dose of Rituxan. Prescription has been sent for oral chemotherapy. We will await delivery from specialty pharmacy. She should be starting this hopefully next week. She has a followup with Dr. Weiss in the outpatient setting. Thank you for the consult. Job ID: [id number]
--- NOTE | 2019-06-29 11:30 | DIS ---
DATE OF ADMISSION: 06/26/2019 DATE OF DISCHARGE: 06/27/2019 DISCHARGE DIAGNOSES: 1. Right axillary pain likely from lymph nodes. 2. Shortness of breath. 3. History of chronic lymphocytic leukemia. HOSPITAL COURSE: Ms. Vaughn is a 64-year-old lady with past medical history of CLL, who presented to emergency room with right-sided chest pain as well as shortness of breath. The patient said she woke up hurting on the right side near the axilla. She presented to emergency room, where she had cardiac imaging including a chest x-ray, that did not show any acute infiltrates. Her echocardiogram in May was normal. Her EKG was also normal. It was felt that her right axillary pain was likely from her lymph nodes. The patient was given some pain medication and her pain resolved. She was also seen by oncologist, who recommended continued management. She did not require any further cardiac workup. She is, therefore, stable at this time with discharge to home. CONSULTATION: Oncology. PHYSICAL EXAMINATION: VITAL SIGNS: Temperature 98.3, blood pressure 125/65, pulse of 92, respirations 18, and oxygen saturation 95% on room air. GENERAL: This is an elderly lady, in no acute distress. HEENT: No pale. No jaundice. Pupils are equal and reactive to light and accommodation. Extraocular movements are intact. NECK: Supple. No JVD. No thyromegaly. No bruits. CARDIOVASCULAR: First and second heart sounds are heard. No murmurs, rubs, or gallops. RESPIRATORY: Good air entry bilaterally. No crackles, no rales, no wheezes. ABDOMEN: Bowel sounds are present. Nondistended. Nontender. EXTREMITIES: No cyanosis, no clubbing, no edema. SKIN: Has no rashes or lesions noted. 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 MEDICATIONS: Kindly see medication reconciliation list. ACTIVITIES: As tolerated. DISCHARGE DISPOSITION: Home. CONDITION: Stable. FOLLOWUP APPOINTMENT: The patient will follow up with her primary care physician and her oncologist as previously scheduled. Discharge plan was discussed with patient. She expressed understanding and agreed with plan. TIME SPENT: On discharge, more than 30 minutes. Job ID: [id number]
== END 2019-06-27 18:44 | disposition home or self-care (01) ==
LOC: ERS 11:56 → 2SW 21:10
PROVIDERS: ADMIT Internal Medicine; ATTEND Internal Medicine
DX: M79.621 Pain in right upper arm (principal); R06.02 Shortness of breath; C91.12 Chronic lymphocytic leukemia of B-cell type in relapse; E11.9 Type 2 diabetes mellitus without complications; I10 Essential (primary) hypertension; I48.20 Chronic atrial fibrillation, unspecified; E78.5 Hyperlipidemia, unspecified; M10.9 Gout, unspecified; E89.0 Postprocedural hypothyroidism; G47.30 Sleep apnea, unspecified; J44.9 Chronic obstructive pulmonary disease, unspecified; M19.90 Unspecified osteoarthritis, unspecified site; E66.01 Morbid (severe) obesity due to excess calories; Z68.41 Body mass index [BMI] 40.0-44.9, adult; Z79.01 Long term (current) use of anticoagulants; Z79.899 Other long term (current) drug therapy; Z88.8 Allergy status to other drugs, medicaments and biological substances; Z91.048 Other nonmedicinal substance allergy status; Z99.89 Dependence on other enabling machines and devices
CPT/HCPCS: 71045; 80048; 80053; 82565; 82962 ×2; 83735; 84484 ×2; 85014; 85018; 85025 ×2; 85049; 93005; 94660; 97139 ×2; 99285; G0378 ×3; 36415; 36416

== ENCOUNTER 2019-07-01 19:30 | Outpatient (CLI) | payer MEDICARE | END 2019-07-01 19:31 | disposition home or self-care (01) | LOC: SLEEPLAB 19:30 | PROVIDERS: ATTEND Internal Medicine Pulmonary Disease | DX: G47.33 Obstructive sleep apnea (adult) (pediatric) (principal); R53.83 Other fatigue; E66.9 Obesity, unspecified; K21.9 Gastro-esophageal reflux disease without esophagitis; I49.9 Cardiac arrhythmia, unspecified; R09.02 Hypoxemia; R00.0 Tachycardia, unspecified; R06.82 Tachypnea, not elsewhere classified; Z68.42 Body mass index [BMI] 45.0-49.9, adult | CPT/HCPCS: 95811 ==

== ENCOUNTER 2019-12-09 19:30 | Outpatient (CLI) | payer MEDICARE | END 2019-12-09 19:31 | disposition home or self-care (01) | LOC: SLEEPLAB 19:30 | PROVIDERS: ATTEND Internal Medicine Pulmonary Disease | DX: G47.33 Obstructive sleep apnea (adult) (pediatric) (principal); R53.83 Other fatigue; E66.9 Obesity, unspecified; K21.9 Gastro-esophageal reflux disease without esophagitis; I49.9 Cardiac arrhythmia, unspecified; R06.83 Snoring; G47.10 Hypersomnia, unspecified; R09.02 Hypoxemia; Z68.42 Body mass index [BMI] 45.0-49.9, adult | CPT/HCPCS: 95811 ==

== ENCOUNTER 2021-12-08 12:36 | Outpatient (CLI) | payer MEDICARE | END 2021-12-08 12:37 | disposition home or self-care (01) | LOC: BICMAMMO 12:36 | PROVIDERS: ATTEND Nurse Practitioner | DX: C91.10 Chronic lymphocytic leukemia of B-cell type not having achieved remission (principal) | CPT/HCPCS: 77066; G0279 ==

== ENCOUNTER 2022-02-12 13:06 | Inpatient (IN) | payer MEDICARE ==
[2022-02-12] MEDS ORDERED: Dextrose 50% Abboject 50 ML SYRINGE SLOW IVP PRN (23:14)
[2022-02-12] MEDS ORDERED: Dextrose 5% in Water 1,000 ML IV PRN (23:14)
[2022-02-12] MEDS ORDERED: Acetaminophen 325 MG TAB PO PRN (23:15)
[2022-02-12] MEDS ORDERED: Ondansetron ODT 4 MG TAB PO PRN (23:15)
[2022-02-12] MEDS ORDERED: Ondansetron PF 4 MG/2 ML Vial IVP PRN (23:15)
[2022-02-12] MEDS ORDERED: Dextrose 5% in Water 1,000 ML IV SCH (23:15)
[2022-02-12] MEDS ORDERED: Benzonatate 100 MG CAP PO PRN (23:17)
[2022-02-12] MEDS ORDERED: Acetaminophen 650 MG Suppository PR PRN (23:17)
[2022-02-12] MEDS ORDERED: Albuterol 200 PUFF (6.7GM INHALER) INH PRN (23:17)
[2022-02-12] MEDS ORDERED: Pharmacy to Dose REMDESIVIR PO PRN (23:34)
[2022-02-13 04:59] LABS: Hemoglobin 11.3 g/dL (12.0-16.0); Mean Corpuscular HGB CONC 29.7 g/dL (32.0-36.0); Mean Corpuscular Hemoglobin 29.9 pg (27.0-31.0); Mean Platelet Volume 10.6 fL (7.4-10.4); Platelet Count 71 thou/uL (130-400); RBC Distribution Width 14.9 % (11.5-14.5); Red Blood Cell (RBC) Count 3.77 mill/uL (4.20-5.40)
[2022-02-13 05:18] LABS: ALT (SGPT) Less than 7 U/L (8-55); AST (SGOT) 13 U/L (5-34); Albumin 3.8 g/dL (3.4-4.8); Alkaline Phosphatase 77 U/L (40-110); Anion Gap 20 mmol/L (10-20); BUN (Urea Nitrogen) 35 mg/dL (9.8-20.1); Bilirubin, Total 0.7 mg/dL (0.2-1.2); CRP (Inflammatory) 10.41 mg/dL (= or < 0.5); Calc. Creatinine Clearance 64 mL/min (70-130); Calcium 8.7 mg/dL (7.8-10.44); Carbon Dioxide 20 mmol/L (23-31); Chloride 119 mmol/L (98-107); Estimated GFR 34; Globulin 2.7 g/dL (2.4-3.5); Glucose 102 mg/dL (80-115); Magnesium 2.6 mg/dL (1.6-2.6); Potassium 4.5 mmol/L (3.5-5.1); Protein, Total 6.5 g/dL (5.8-8.1); Sodium 154 mmol/L (136-145)
[2022-02-13] MEDS ORDERED: Metoprolol Tartrate 5 MG/5 ML VIAL IVP PRN (05:22)
[2022-02-13 05:37] LABS: Band 5 % (5-11); Lymphocytes 85 % (21-51); MDiff Complete? YES; Monocytes 3 % (0-10); Neutrophil 7 % (42-75); Platelet Morphology Comment Appears Decreased
[2022-02-13] MEDS ORDERED: Labetalol HCl 100 MG/20 ML VIAL SLOW IVP PRN (05:54)
[2022-02-13] MEDS: Zinc Sulfate 220 MG CAP PO SCH (09:21)
[2022-02-13] MEDS: Pantoprazole 40 MG VIAL IVP SCH (09:21)
[2022-02-13] MEDS: Cholecalciferol (Vitamin D3) 400 UNITS TAB PO SCH (09:21)
[2022-02-13] MEDS: Ascorbic Acid 500 mg Chewable Tablet PO SCH (09:21)
[2022-02-13] MEDS: methylPREDNISolone Sod Succ/PF 125 MG/2 ML VIAL IVP SCH ×2 (14:51→21:27)
[2022-02-13] MEDS ORDERED: REMDESIVIR 200 MG in Sodium Chloride 0.9% 250 ML 210 ML IV SCH (15:15)
[2022-02-13] MEDS ORDERED: Metoprolol Tartrate 5 MG/5 ML VIAL ONE (18:27)
[2022-02-13] MEDS: VANCOMYCIN 1.75 GM/500 ML BAG 1.75 GM in Premix Bag 1 BAG IVPB SCH (18:29)
[2022-02-13] MEDS: Metoprolol Tartrate 5 MG/5 ML VIAL IVP SCH ×4 (18:47→20:38)
[2022-02-13] MEDS: Mometasone 200 MCG/Formoterol 5 MCG 120 PUFF INHALER INH SCH (19:08)
[2022-02-13] MEDS: Cefepime 1 GM in Sodium Chloride 0.9% 100 ML IVPB SCH (20:01)
[2022-02-13 20:10] LABS: Anion Gap 20 mmol/L (10-20); BUN (Urea Nitrogen) 31 mg/dL (9.8-20.1); Calc. Creatinine Clearance 72 mL/min (70-130); Calcium 8.3 mg/dL (7.8-10.44); Carbon Dioxide 16 mmol/L (23-31); Chloride 122 mmol/L (98-107); Estimated GFR 39; Glucose 185 mg/dL (80-115); Magnesium 2.5 mg/dL (1.6-2.6); Potassium 5.6 mmol/L (3.5-5.1); Sodium 152 mmol/L (136-145)
[2022-02-13] MEDS ORDERED: VANCOMYCIN 1.25 GM/250 ML BAG 1.25 GM in Premix Bag 1 BAG IVPB SCH (21:00)
[2022-02-13] MEDS: Diltiazem HCl 125 MG, Admixture Fee 1 EACH in Sodium Chloride 0.9% 100 ML IVPB SCH (21:27)
[2022-02-14 01:22] LABS: Anion Gap 19 mmol/L (10-20); BUN (Urea Nitrogen) 38 mg/dL (9.8-20.1); Calc. Creatinine Clearance 69 mL/min (70-130); Calcium 8.1 mg/dL (7.8-10.44); Carbon Dioxide 18 mmol/L (23-31); Chloride 121 mmol/L (98-107); Estimated GFR 37; Glucose 207 mg/dL (80-115); Sodium 153 mmol/L (136-145)
[2022-02-14] MEDS: methylPREDNISolone Sod Succ/PF 125 MG/2 ML VIAL IVP SCH ×2 (05:36→20:02)
[2022-02-14] MEDS: Mometasone 200 MCG/Formoterol 5 MCG 120 PUFF INHALER INH SCH ×2 (06:00→18:15)
[2022-02-14 08:02] LABS: ALT (SGPT) Less than 7 U/L (8-55); AST (SGOT) 11 U/L (5-34); Albumin 3.6 g/dL (3.4-4.8); Alkaline Phosphatase 83 U/L (40-110); Anion Gap 19 mmol/L (10-20); BUN (Urea Nitrogen) 43 mg/dL (9.8-20.1); Bilirubin, Total 0.4 mg/dL (0.2-1.2); Calc. Creatinine Clearance 67 mL/min (70-130); Calcium 8.3 mg/dL (7.8-10.44); Carbon Dioxide 18 mmol/L (23-31); Chloride 122 mmol/L (98-107); Estimated GFR 36; Globulin 2.6 g/dL (2.4-3.5); Glucose 200 mg/dL (80-115); Protein, Total 6.2 g/dL (5.8-8.1); Sodium 154 mmol/L (136-145)
[2022-02-14 08:26] LABS: Mean Corpuscular HGB CONC 28.4 g/dL (32.0-36.0); Mean Corpuscular Hemoglobin 28.6 pg (27.0-31.0); Mean Platelet Volume 11.1 fL (7.4-10.4); Platelet Count 82 thou/uL (130-400); Red Blood Cell (RBC) Count 3.85 mill/uL (4.20-5.40)
[2022-02-14] MEDS: Cefepime 1 GM in Sodium Chloride 0.9% 100 ML IVPB SCH ×2 (09:24→20:02)
[2022-02-14] MEDS: Ascorbic Acid 500 mg Chewable Tablet PO SCH (09:25)
[2022-02-14] MEDS: Zinc Sulfate 220 MG CAP PO SCH (09:25)
[2022-02-14] MEDS: Cholecalciferol (Vitamin D3) 400 UNITS TAB PO SCH (09:25)
[2022-02-14] MEDS: Pantoprazole 40 MG VIAL IVP SCH (09:26)
[2022-02-14] MEDS: Diltiazem HCl 125 MG, Admixture Fee 1 EACH in Sodium Chloride 0.9% 100 ML IVPB SCH (09:31)
[2022-02-14 09:41] LABS: Band 5 % (5-11); Lymphocytes 93 % (21-51); MDiff Complete? YES; Monocytes 1 % (0-10); Neutrophil 1 % (42-75); Platelet Morphology Comment Appears Decreased; Polychromasia SLIGHT = 2-3 cells (100X) (0-2/hpf); Reflex for Review?? NO
[2022-02-14] MEDS: Dextrose 5 %-0.45 % NaCl 1,000 ML IV SCH (15:33)
[2022-02-14] MEDS: VANCOMYCIN 1.75 GM/500 ML BAG 1.75 GM in Premix Bag 1 BAG IVPB SCH (18:14)
[2022-02-14] MEDS: Insulin Regular 300 UNITS/3 ML VIAL SC PRN ×2 (19:59→23:58)
[2022-02-14] MEDS: REMDESIVIR 100 MG in Sodium Chloride 0.9% 250 ML 230 ML IV SCH (20:56)
[2022-02-15 04:36] LABS: Anion Gap 15 mmol/L (10-20); BUN (Urea Nitrogen) 51 mg/dL (9.8-20.1); Calc. Creatinine Clearance 64 mL/min (70-130); Calcium 8.1 mg/dL (7.8-10.44); Carbon Dioxide 19 mmol/L (23-31); Chloride 120 mmol/L (98-107); Estimated GFR 34; Glucose 290 mg/dL (80-115); Potassium 4.4 mmol/L (3.5-5.1); Sodium 150 mmol/L (136-145)
[2022-02-15 04:49] LABS: Band 2 % (5-11); Hemoglobin 10.5 g/dL (12.0-16.0); Lymphocytes 91 % (21-51); MDiff Complete? YES; Mean Corpuscular HGB CONC 27.8 g/dL (32.0-36.0); Mean Corpuscular Hemoglobin 27.9 pg (27.0-31.0); Mean Platelet Volume 10.9 fL (7.4-10.4); Monocytes 1 % (0-10); Neutrophil 6 % (42-75); Platelet Count 78 thou/uL (130-400); Platelet Morphology Comment Appears Decreased; RBC Distribution Width 14.9 % (11.5-14.5); Red Blood Cell (RBC) Count 3.78 mill/uL (4.20-5.40); White Blood Cell (WBC) Count 98.1 thou/uL (4.8-10.8)
[2022-02-15] MEDS: Insulin Regular 300 UNITS/3 ML VIAL SC PRN ×2 (05:07→09:30)
[2022-02-15] MEDS: Dextrose 5 %-0.45 % NaCl 1,000 ML IV SCH ×2 (05:08→21:28)
[2022-02-15] MEDS: Mometasone 200 MCG/Formoterol 5 MCG 120 PUFF INHALER INH SCH ×2 (06:14→19:25)
[2022-02-15] MEDS ORDERED: Rivaroxaban 10 MG TAB PO SCH (09:00)
[2022-02-15] MEDS ORDERED: Insulin Glargine 30 UNITS/0.3 ML VIAL SC SCH (09:00)
[2022-02-15] MEDS: Cefepime 1 GM in Sodium Chloride 0.9% 100 ML IVPB SCH ×2 (09:27→21:27)
[2022-02-15] MEDS: Pantoprazole 40 MG VIAL IVP SCH (09:28)
[2022-02-15] MEDS: methylPREDNISolone Sod Succ/PF 125 MG/2 ML VIAL IVP SCH ×2 (09:29→21:27)
[2022-02-15] MEDS: Acetaminophen 325 MG TAB PO PRN (09:31)
[2022-02-15] MEDS: Zinc Sulfate 220 MG CAP PO SCH (09:31)
[2022-02-15] MEDS: Ascorbic Acid 500 mg Chewable Tablet PO SCH (09:32)
[2022-02-15] MEDS: Cholecalciferol (Vitamin D3) 400 UNITS TAB PO SCH (09:32)
[2022-02-15] MEDS: REMDESIVIR 100 MG in Sodium Chloride 0.9% 250 ML 230 ML IV SCH (21:27)
[2022-02-16 03:51] LABS: White Blood Cell (WBC) Count 95.9 thou/uL (4.8-10.8)
[2022-02-16 04:11] LABS: Anion Gap 16 mmol/L (10-20); BUN (Urea Nitrogen) 43 mg/dL (9.8-20.1); Calc. Creatinine Clearance 81 mL/min (70-130); Calcium 8.1 mg/dL (7.8-10.44); Carbon Dioxide 18 mmol/L (23-31); Chloride 116 mmol/L (98-107); Estimated GFR 44; Glucose 318 mg/dL (80-115); Magnesium 2.9 mg/dL (1.6-2.6); Potassium 4.4 mmol/L (3.5-5.1); Sodium 146 mmol/L (136-145)
[2022-02-16 04:18] LABS: Band 3 % (5-11); Hemoglobin 10.5 g/dL (12.0-16.0); Lymphocytes 90 % (21-51); MDiff Complete? YES; Mean Corpuscular HGB CONC 28.2 g/dL (32.0-36.0); Mean Corpuscular Hemoglobin 27.9 pg (27.0-31.0); Mean Corpuscular Volume 98.9 fL (78.0-98.0); Mean Platelet Volume 11.5 fL (7.4-10.4); Monocytes 1 % (0-10); Neutrophil 6 % (42-75); Platelet Count 66 thou/uL (130-400); Platelet Morphology Comment Appears Decreased; RBC Distribution Width 14.7 % (11.5-14.5); Red Blood Cell (RBC) Count 3.76 mill/uL (4.20-5.40)
[2022-02-16] MEDS: Insulin Regular 300 UNITS/3 ML VIAL SC PRN ×4 (05:23→21:28)
[2022-02-16] MEDS: Mometasone 200 MCG/Formoterol 5 MCG 120 PUFF INHALER INH SCH ×2 (05:24→21:27)
[2022-02-16] MEDS ORDERED: Insulin Glargine 30 UNITS/0.3 ML VIAL SC SCH (09:00)
[2022-02-16] MEDS ORDERED: Rivaroxaban 10 MG TAB PO SCH (09:00)
[2022-02-16] MEDS: Cholecalciferol (Vitamin D3) 400 UNITS TAB PO SCH (09:27)
[2022-02-16] MEDS: Ascorbic Acid 500 mg Chewable Tablet PO SCH (09:27)
[2022-02-16] MEDS: Cefepime 1 GM in Sodium Chloride 0.9% 100 ML IVPB SCH ×2 (09:27→21:26)
[2022-02-16] MEDS: Pantoprazole 40 MG VIAL IVP SCH (09:28)
[2022-02-16] MEDS: Rivaroxaban 15 MG TAB PO SCH (09:28)
[2022-02-16] MEDS: Nebivolol HCl 2.5 MG TAB PO SCH ×2 (09:28→21:26)
[2022-02-16] MEDS: Dextrose 5 %-0.45 % NaCl 1,000 ML IV SCH ×2 (09:29→23:08)
[2022-02-16] MEDS: Zinc Sulfate 220 MG CAP PO SCH (09:29)
[2022-02-16] MEDS: methylPREDNISolone Sod Succ/PF 125 MG/2 ML VIAL IVP SCH ×2 (09:32→21:27)
[2022-02-16 15:38] VITALS: BP 138/94
[2022-02-16] MEDS: REMDESIVIR 100 MG in Sodium Chloride 0.9% 250 ML 230 ML IV SCH (23:08)
[2022-02-17 06:23] LABS: White Blood Cell (WBC) Count 96.2 thou/uL (4.8-10.8)
[2022-02-17 06:36] LABS: Anion Gap 17 mmol/L (10-20); BUN (Urea Nitrogen) 38 mg/dL (9.8-20.1); Calc. Creatinine Clearance 91 mL/min (70-130); Calcium 7.8 mg/dL (7.8-10.44); Carbon Dioxide 15 mmol/L (23-31); Chloride 114 mmol/L (98-107); Estimated GFR 52; Glucose 291 mg/dL (80-115); Magnesium 2.9 mg/dL (1.6-2.6); Potassium 4.7 mmol/L (3.5-5.1); Sodium 141 mmol/L (136-145)
[2022-02-17 06:55] LABS: Hemoglobin 11.9 g/dL (12.0-16.0); Lymphocytes 85 % (21-51); MDiff Complete? YES; Macrocytosis SLIGHT = 6-15 cells (100X) (0-5/hpf); Mean Corpuscular HGB CONC 30.3 g/dL (32.0-36.0); Mean Platelet Volume 11.7 fL (7.4-10.4); Metamyelocyte 2 % (0-0); Monocytes 3 % (0-10); Neutrophil 5 % (42-75); Ovalocytes SLIGHT = 2-5 cells (100X) (0-1/hpf); Platelet Count 57 thou/uL (130-400); Platelet Morphology Comment Appears Decreased; RBC Distribution Width 14.8 % (11.5-14.5); Red Blood Cell (RBC) Count 3.98 mill/uL (4.20-5.40); Reflex for Review?? NO
[2022-02-17] MEDS: Mometasone 200 MCG/Formoterol 5 MCG 120 PUFF INHALER INH SCH ×2 (07:52→21:27)
[2022-02-17] MEDS: Insulin Regular 300 UNITS/3 ML VIAL SC PRN ×4 (07:52→21:30)
[2022-02-17] MEDS: Insulin Glargine 30 UNITS/0.3 ML VIAL SC SCH (08:36)
[2022-02-17] MEDS: Cholecalciferol (Vitamin D3) 400 UNITS TAB PO SCH (08:36)
[2022-02-17] MEDS: Cefepime 1 GM in Sodium Chloride 0.9% 100 ML IVPB SCH ×2 (08:36→21:26)
[2022-02-17] MEDS: Ascorbic Acid 500 mg Chewable Tablet PO SCH (08:36)
[2022-02-17] MEDS: methylPREDNISolone Sod Succ/PF 125 MG/2 ML VIAL IVP SCH (08:36)
[2022-02-17] MEDS: Pantoprazole 40 MG VIAL IVP SCH (08:37)
[2022-02-17] MEDS: Nebivolol HCl 2.5 MG TAB PO SCH ×2 (08:37→21:26)
[2022-02-17] MEDS: Zinc Sulfate 220 MG CAP PO SCH (08:37)
[2022-02-17] MEDS: Rivaroxaban 15 MG TAB PO SCH (08:41)
[2022-02-17] MEDS: Dextrose 5 %-0.45 % NaCl 1,000 ML IV SCH (12:25)
[2022-02-17] MEDS: Acetaminophen 325 MG TAB PO PRN (17:45)
[2022-02-17] MEDS: REMDESIVIR 100 MG in Sodium Chloride 0.9% 250 ML 230 ML IV SCH (21:25)
[2022-02-17] MEDS: methylPREDNISolone Sod Succ 40 MG VIAL IVP SCH (21:26)
[2022-02-18 04:16] LABS: Mean Corpuscular HGB CONC 29.3 g/dL (32.0-36.0); Mean Corpuscular Hemoglobin 28.6 pg (27.0-31.0); Mean Corpuscular Volume 97.8 fL (78.0-98.0); Mean Platelet Volume 11.7 fL (7.4-10.4); Platelet Count 50 thou/uL (130-400); RBC Distribution Width 14.5 % (11.5-14.5); Red Blood Cell (RBC) Count 3.83 mill/uL (4.20-5.40); White Blood Cell (WBC) Count 91.2 thou/uL (4.8-10.8)
[2022-02-18 04:26] LABS: Anion Gap 14 mmol/L (10-20); BUN (Urea Nitrogen) 36 mg/dL (9.8-20.1); Calc. Creatinine Clearance 96 mL/min (70-130); Calcium 7.9 mg/dL (7.8-10.44); Carbon Dioxide 19 mmol/L (23-31); Chloride 114 mmol/L (98-107); Estimated GFR 55; Glucose 211 mg/dL (80-115); Magnesium 2.8 mg/dL (1.6-2.6); Potassium 4.8 mmol/L (3.5-5.1); Sodium 142 mmol/L (136-145)
[2022-02-18 06:01] LABS: Band 1 % (5-11); Lymphocytes 88 % (21-51); MDiff Complete? YES; Monocytes 2 % (0-10); Neutrophil 9 % (42-75); Platelet Morphology Comment Appears Decreased
[2022-02-18] MEDS: Mometasone 200 MCG/Formoterol 5 MCG 120 PUFF INHALER INH SCH ×2 (09:37→22:44)
[2022-02-18] MEDS: Cefepime 1 GM in Sodium Chloride 0.9% 100 ML IVPB SCH ×2 (09:38→22:43)
[2022-02-18] MEDS: Insulin Glargine 30 UNITS/0.3 ML VIAL SC SCH (09:38)
[2022-02-18] MEDS: Ascorbic Acid 500 mg Chewable Tablet PO SCH (09:38)
[2022-02-18] MEDS: Cholecalciferol (Vitamin D3) 400 UNITS TAB PO SCH (09:38)
[2022-02-18] MEDS: methylPREDNISolone Sod Succ 40 MG VIAL IVP SCH ×2 (09:38→22:43)
[2022-02-18] MEDS: Zinc Sulfate 220 MG CAP PO SCH (09:39)
[2022-02-18] MEDS: Pantoprazole 40 MG VIAL IVP SCH (09:39)
[2022-02-18] MEDS: Nebivolol HCl 2.5 MG TAB PO SCH ×2 (09:39→22:43)
[2022-02-18] MEDS: Insulin Regular 300 UNITS/3 ML VIAL SC PRN ×3 (11:19→22:44)
[2022-02-18] MEDS: Rivaroxaban 15 MG TAB PO SCH (14:17)
[2022-02-19 06:50] LABS: Hemoglobin 12.1 g/dL (12.0-16.0); Mean Corpuscular HGB CONC 29.7 g/dL (32.0-36.0); Mean Corpuscular Hemoglobin 29.3 pg (27.0-31.0); Mean Corpuscular Volume 98.5 fL (78.0-98.0); Mean Platelet Volume 11.8 fL (7.4-10.4); Platelet Count 32 thou/uL (130-400); RBC Distribution Width 14.4 % (11.5-14.5); Red Blood Cell (RBC) Count 4.14 mill/uL (4.20-5.40)
[2022-02-19 06:57] LABS: Anion Gap 17 mmol/L (10-20); BUN (Urea Nitrogen) 32 mg/dL (9.8-20.1); Calc. Creatinine Clearance 48 mL/min (70-130); Calcium 8.2 mg/dL (7.8-10.44); Carbon Dioxide 14 mmol/L (23-31); Chloride 111 mmol/L (98-107); Estimated GFR 56; Glucose 203 mg/dL (80-115); Magnesium 2.6 mg/dL (1.6-2.6); Potassium 5.9 mmol/L (3.5-5.1); Sodium 136 mmol/L (136-145)
[2022-02-19] MEDS: Rivaroxaban 15 MG TAB PO SCH (08:09)
[2022-02-19 08:42] LABS: Band 1 % (5-11); Lymphocytes 90 % (21-51); MDiff Complete? YES; Monocytes 1 % (0-10); Neutrophil 8 % (42-75); Platelet Morphology Comment Appears Decreased; RBC Morphology Normal
[2022-02-19] MEDS: Pantoprazole 40 MG VIAL IVP SCH (09:30)
[2022-02-19] MEDS: Zinc Sulfate 220 MG CAP PO SCH (09:30)
[2022-02-19] MEDS: Cefepime 1 GM in Sodium Chloride 0.9% 100 ML IVPB SCH ×2 (09:36→20:38)
[2022-02-19] MEDS: Cholecalciferol (Vitamin D3) 400 UNITS TAB PO SCH (09:36)
[2022-02-19] MEDS: Ascorbic Acid 500 mg Chewable Tablet PO SCH (09:36)
[2022-02-19] MEDS: Insulin Glargine 30 UNITS/0.3 ML VIAL SC SCH (09:36)
[2022-02-19] MEDS: Nebivolol HCl 2.5 MG TAB PO SCH ×2 (09:37→20:39)
[2022-02-19] MEDS: methylPREDNISolone Sod Succ 40 MG VIAL IVP SCH ×2 (09:37→20:38)
[2022-02-19] MEDS: Acetaminophen 325 MG TAB PO PRN (09:39)
[2022-02-19] MEDS: Mometasone 200 MCG/Formoterol 5 MCG 120 PUFF INHALER INH SCH ×2 (09:42→19:10)
[2022-02-19] MEDS ORDERED: Dextrose 5% in Water 1,000 ML IV PRN (12:13)
[2022-02-19] MEDS ORDERED: Dextrose 50% Abboject 50 ML SYRINGE SLOW IVP PRN (12:13)
[2022-02-19] MEDS: HumaLOG 300 UNITS/3 ML VIAL SC PRN ×2 (18:47→20:39)
[2022-02-20] MEDS: HumaLOG 300 UNITS/3 ML VIAL SC PRN ×4 (06:21→21:22)
[2022-02-20] MEDS: Mometasone 200 MCG/Formoterol 5 MCG 120 PUFF INHALER INH SCH ×2 (06:21→18:18)
[2022-02-20 07:57] LABS: Hemoglobin 12.1 g/dL (12.0-16.0); Mean Corpuscular HGB CONC 29.4 g/dL (32.0-36.0); Mean Corpuscular Volume 98.7 fL (78.0-98.0); Mean Platelet Volume 11.7 fL (7.4-10.4); Platelet Count 48 thou/uL (130-400); RBC Distribution Width 14.7 % (11.5-14.5); Red Blood Cell (RBC) Count 4.19 mill/uL (4.20-5.40)
[2022-02-20 08:05] LABS: Chloride 107 mmol/L (98-107); Potassium 5.1 mmol/L (3.5-5.1); Sodium 135 mmol/L (136-145)
[2022-02-20 08:06] LABS: Calcium 8.1 mg/dL (7.8-10.44); Glucose 183 mg/dL (80-115)
[2022-02-20 08:08] LABS: Anion Gap 14 mmol/L (10-20); Carbon Dioxide 19 mmol/L (23-31)
[2022-02-20 08:10] LABS: BUN (Urea Nitrogen) 35 mg/dL (9.8-20.1); Calc. Creatinine Clearance 96 mL/min (70-130); Estimated GFR 51
[2022-02-20 08:11] LABS: Magnesium 2.5 mg/dL (1.6-2.6)
[2022-02-20 08:20] LABS: Band 1 % (5-11); Hypochromia SLIGHT = 6-15 cells (100X) (0-5/hpf); Lymphocytes 89 % (21-51); MDiff Complete? YES; Monocytes 2 % (0-10); Neutrophil 8 % (42-75); Platelet Morphology Comment Appears Decreased; Polychromasia SLIGHT = 2-3 cells (100X) (0-2/hpf)
[2022-02-20] MEDS: Ascorbic Acid 500 mg Chewable Tablet PO SCH (09:12)
[2022-02-20] MEDS: Cefepime 1 GM in Sodium Chloride 0.9% 100 ML IVPB SCH ×2 (09:12→21:17)
[2022-02-20] MEDS: methylPREDNISolone Sod Succ 40 MG VIAL IVP SCH ×2 (09:13→21:17)
[2022-02-20] MEDS: Nebivolol HCl 2.5 MG TAB PO SCH ×2 (09:14→21:18)
[2022-02-20] MEDS: Pantoprazole 40 MG VIAL IVP SCH (09:14)
[2022-02-20] MEDS: Zinc Sulfate 220 MG CAP PO SCH (09:14)
[2022-02-20] MEDS: Insulin Glargine 30 UNITS/0.3 ML VIAL SC SCH (10:29)
[2022-02-20] MEDS: Cholecalciferol (Vitamin D3) 400 UNITS TAB PO SCH (10:29)
[2022-02-20 11:03] VITALS: BMI 45.3
[2022-02-20] MEDS: Rivaroxaban 15 MG TAB PO SCH (11:07)
[2022-02-20] MEDS: Dronedarone HCl 400 MG TAB PO SCH (16:46)
[2022-02-21] MEDS: Mometasone 200 MCG/Formoterol 5 MCG 120 PUFF INHALER INH SCH ×2 (05:58→18:51)
[2022-02-21] MEDS: HumaLOG 300 UNITS/3 ML VIAL SC PRN ×4 (05:58→20:23)
[2022-02-21 07:18] LABS: Anion Gap 15 mmol/L (10-20); BUN (Urea Nitrogen) 34 mg/dL (9.8-20.1); Calc. Creatinine Clearance 98 mL/min (70-130); Calcium 8.2 mg/dL (7.8-10.44); Carbon Dioxide 18 mmol/L (23-31); Chloride 107 mmol/L (98-107); Estimated GFR 52; Glucose 224 mg/dL (80-115); Hemoglobin 12.3 g/dL (12.0-16.0); Magnesium 2.4 mg/dL (1.6-2.6); Mean Corpuscular HGB CONC 30.6 g/dL (32.0-36.0); Mean Corpuscular Hemoglobin 29.5 pg (27.0-31.0); Mean Corpuscular Volume 96.2 fL (78.0-98.0); Mean Platelet Volume 12.3 fL (7.4-10.4); Platelet Count 33 thou/uL (130-400); Potassium 5.2 mmol/L (3.5-5.1); RBC Distribution Width 14.5 % (11.5-14.5); Red Blood Cell (RBC) Count 4.17 mill/uL (4.20-5.40); Sodium 135 mmol/L (136-145)
[2022-02-21] MEDS: Cefepime 1 GM in Sodium Chloride 0.9% 100 ML IVPB SCH ×2 (08:57→20:09)
[2022-02-21] MEDS: Cholecalciferol (Vitamin D3) 400 UNITS TAB PO SCH (08:58)
[2022-02-21] MEDS: Dronedarone HCl 400 MG TAB PO SCH ×2 (08:58→16:46)
[2022-02-21] MEDS: Nebivolol HCl 2.5 MG TAB PO SCH ×2 (08:58→20:09)
[2022-02-21] MEDS: Insulin Glargine 30 UNITS/0.3 ML VIAL SC SCH (08:58)
[2022-02-21] MEDS: predniSONE 20 MG TAB PO SCH ×2 (08:58→16:46)
[2022-02-21] MEDS: Ascorbic Acid 500 mg Chewable Tablet PO SCH (08:58)
[2022-02-21] MEDS: Zinc Sulfate 220 MG CAP PO SCH (08:59)
[2022-02-21 10:59] LABS: Band 1 % (5-11); Lymphocytes 88 % (21-51); MDiff Complete? YES; Neutrophil 10 % (42-75); Platelet Morphology Comment Appears Decreased; Polychromasia SLIGHT = 2-3 cells (100X) (0-2/hpf); Reactive Lymphocytes 1 % (0-10)
[2022-02-22 04:19] LABS: Anion Gap 12 mmol/L (10-20); BUN (Urea Nitrogen) 35 mg/dL (9.8-20.1); Calc. Creatinine Clearance 104 mL/min (70-130); Calcium 8.2 mg/dL (7.8-10.44); Carbon Dioxide 20 mmol/L (23-31); Chloride 108 mmol/L (98-107); Estimated GFR 56; Glucose 153 mg/dL (80-115); Magnesium 2.4 mg/dL (1.6-2.6); Potassium 4.6 mmol/L (3.5-5.1); Sodium 135 mmol/L (136-145)
[2022-02-22 04:23] LABS: Anisocytosis SLIGHT = 6-15 cells (100X) (0-5/hpf); Hemoglobin 11.5 g/dL (12.0-16.0); Hypochromia SLIGHT = 6-15 cells (100X) (0-5/hpf); Lymphocytes 84 % (21-51); MDiff Complete? YES; Mean Corpuscular HGB CONC 31.6 g/dL (32.0-36.0); Mean Corpuscular Hemoglobin 30.5 pg (27.0-31.0); Mean Corpuscular Volume 96.5 fL (78.0-98.0); Mean Platelet Volume 12.1 fL (7.4-10.4); Metamyelocyte 1 % (0-0); Monocytes 2 % (0-10); Neutrophil 5 % (42-75); Platelet Count 32 thou/uL (130-400); Platelet Morphology Comment Appears Decreased; Polychromasia SLIGHT = 2-3 cells (100X) (0-2/hpf); RBC Distribution Width 14.7 % (11.5-14.5); Red Blood Cell (RBC) Count 3.75 mill/uL (4.20-5.40); Tear Drops SLIGHT = 2-5 cells (100X) (0-1/hpf)
[2022-02-22] MEDS: Mometasone 200 MCG/Formoterol 5 MCG 120 PUFF INHALER INH SCH ×2 (09:38→18:21)
[2022-02-22] MEDS: predniSONE 20 MG TAB PO SCH ×2 (09:40→17:32)
[2022-02-22] MEDS: Cefepime 1 GM in Sodium Chloride 0.9% 100 ML IVPB SCH (09:40)
[2022-02-22] MEDS: Ascorbic Acid 500 mg Chewable Tablet PO SCH (09:40)
[2022-02-22] MEDS: Dronedarone HCl 400 MG TAB PO SCH ×2 (09:40→17:32)
[2022-02-22] MEDS: Nebivolol HCl 2.5 MG TAB PO SCH (09:41)
[2022-02-22] MEDS: Cholecalciferol (Vitamin D3) 400 UNITS TAB PO SCH (09:41)
[2022-02-22] MEDS: Zinc Sulfate 220 MG CAP PO SCH (09:41)
[2022-02-22] MEDS: Insulin Glargine 30 UNITS/0.3 ML VIAL SC SCH (09:59)
[2022-02-22 16:46] VITALS: TEMP 97.1
== END 2022-02-22 18:21 | disposition home or self-care (01) | DRG 871 ==
LOC: 2NO 13:06 → OBSVTOIN 23:12 → IMCU/EMU 02-13 13:08
PROVIDERS: ADMIT Family Medicine; ATTEND Student in an Organized Health Care Education/Training Program
PROC: 3E03329 Introduction of Other Anti-infective into Peripheral Vein, Percutaneous Approach (ICD-10-PCS; principal; 2022-02-12)
PROC: 8E0ZXY6 Isolation (ICD-10-PCS; 2022-02-12)
PROC: XW033E5 Introduction of Remdesivir Anti-infective into Peripheral Vein, Percutaneous Approach, New Technology Group 5 (ICD-10-PCS; 2022-02-13)
DX: A41.89 Other specified sepsis (principal); J12.82 Pneumonia due to coronavirus disease 2019; U07.1 COVID-19; J96.01 Acute respiratory failure with hypoxia; J44.0 Chronic obstructive pulmonary disease with (acute) lower respiratory infection; N17.9 Acute kidney failure, unspecified; C91.10 Chronic lymphocytic leukemia of B-cell type not having achieved remission; Z68.42 Body mass index [BMI] 45.0-49.9, adult; E87.0 Hyperosmolality and hypernatremia; E87.2 Acidosis; I12.9 Hypertensive chronic kidney disease with stage 1 through stage 4 chronic kidney disease, or unspecified chronic kidney disease; E11.22 Type 2 diabetes mellitus with diabetic chronic kidney disease; E11.65 Type 2 diabetes mellitus with hyperglycemia; N18.30 Chronic kidney disease, stage 3 unspecified; G47.33 Obstructive sleep apnea (adult) (pediatric); I48.0 Paroxysmal atrial fibrillation; E78.00 Pure hypercholesterolemia, unspecified; E66.01 Morbid (severe) obesity due to excess calories; M10.9 Gout, unspecified; D63.1 Anemia in chronic kidney disease; D69.6 Thrombocytopenia, unspecified; E03.9 Hypothyroidism, unspecified; Z79.01 Long term (current) use of anticoagulants; Z79.899 Other long term (current) drug therapy; Z90.710 Acquired absence of both cervix and uterus; Z98.890 Other specified postprocedural states; Z79.4 Long term (current) use of insulin
CPT/HCPCS: 36415; 36416; 71045; 80048; 80053; 82010; 83735; 83880; 84145; 85025; 85379; 86140; 87081; 93005; 93010; 93306; 94664; C9113; J0248; J0692; J1815; J2920; J2930; J3370; J3490; J7042; J7050; J7070; J7512

== ENCOUNTER 2022-03-17 02:27 | Inpatient (IN) | payer MEDICARE ==
[2022-03-17 05:36] VITALS: BMI 42.5
[2022-03-17] MEDS ORDERED: Mometasone 200 MCG/Formoterol 5 MCG 120 PUFF INHALER INH PRN (07:57)
[2022-03-17] MEDS ORDERED: Albuterol 200 PUFF (6.7GM INHALER) INH PRN (07:57)
[2022-03-17] MEDS ORDERED: Ondansetron PF 4 MG/2 ML Vial IVP PRN (08:20)
[2022-03-17] MEDS ORDERED: Ondansetron ODT 4 MG TAB PO PRN (08:20)
[2022-03-17] MEDS ORDERED: Emollient 15 oz bottle 450 ML, Triamcinolone Acetonide 200 MG TOP PRN (08:28)
[2022-03-17] MEDS ORDERED: diphenhydrAMINE 25 MG CAP PO PRN (08:30)
[2022-03-17] MEDS ORDERED: Albuterol Sulfate 2.5 mg/0.5 ml Neb NEB PRN (08:38)
[2022-03-17] MEDS: Cholecalciferol (Vitamin D3) 400 UNITS TAB PO SCH (08:39)
[2022-03-17] MEDS: Allopurinol 300 MG TAB PO SCH (08:39)
[2022-03-17] MEDS: Dronedarone HCl 400 MG TAB PO SCH ×2 (08:40→20:55)
[2022-03-17] MEDS: Furosemide 20 MG TAB PO SCH (08:40)
[2022-03-17] MEDS: Sodium Chloride 0.9% 1,000 ML IV SCH ×2 (08:40→20:54)
[2022-03-17] MEDS: Nebivolol HCl 2.5 MG TAB PO SCH ×2 (08:40→20:58)
[2022-03-17] MEDS: Ascorbic Acid 500 mg Chewable Tablet PO SCH (08:40)
[2022-03-17] MEDS: Acetaminophen 325 MG TAB PO PRN ×2 (08:56→23:59)
[2022-03-17] MEDS: Potassium Chloride 10 MEQ TAB PO SCH (08:56)
[2022-03-17] MEDS ORDERED: traMADol HCl 50 MG TAB PO PRN (10:11)
[2022-03-17] MEDS ORDERED: Dextrose 5% in Water 1,000 ML IV PRN (10:20)
[2022-03-17] MEDS ORDERED: Dextrose 50% Abboject 50 ML SYRINGE SLOW IVP PRN (10:20)
[2022-03-17] MEDS ORDERED: Insulin Regular 300 UNITS/3 ML VIAL SC PRN ×2 (10:20)
[2022-03-17] MEDS: Clindamycin 150 MG CAP PO SCH ×2 (13:16→17:45)
[2022-03-17] MEDS: Lisinopril 10 MG TAB PO SCH (20:55)
[2022-03-17] MEDS: Montelukast Sodium 10 mg Tablet PO SCH (20:55)
[2022-03-17] MEDS: Insulin Glargine 30 UNITS/0.3 ML VIAL SC SCH (20:55)
[2022-03-17] MEDS: Atorvastatin Calcium 10 MG TAB PO SCH (20:55)
[2022-03-18] MEDS: Clindamycin 150 MG CAP PO SCH ×2 (05:57)
[2022-03-18 06:52] LABS: Hemoglobin 8.2 g/dL (12.0-16.0); Mean Corpuscular HGB CONC 32.1 g/dL (32.0-36.0); Mean Corpuscular Hemoglobin 31.5 pg (27.0-31.0); Mean Platelet Volume 8.9 fL (7.4-10.4); Platelet Count 143 thou/uL (130-400); RBC Distribution Width 15.1 % (11.5-14.5); Red Blood Cell (RBC) Count 2.59 mill/uL (4.20-5.40); White Blood Cell (WBC) Count 46.5 thou/uL (4.8-10.8)
[2022-03-18 07:03] LABS: Band 5 % (5-11); Hypochromia SLIGHT = 6-15 cells (100X) (0-5/hpf); Lymphocytes 74 % (21-51); MDiff Complete? YES; Neutrophil 21 % (42-75); Platelet Morphology Comment Appears Adequate
[2022-03-18 07:30] LABS: ALT (SGPT) Less than 7 U/L (8-55); AST (SGOT) 8 U/L (5-34); Albumin 2.8 g/dL (3.4-4.8); Alkaline Phosphatase 74 U/L (40-110); Anion Gap 12 mmol/L (10-20); BUN (Urea Nitrogen) 22 mg/dL (9.8-20.1); Bilirubin, Total 0.7 mg/dL (0.2-1.2); Calc. Creatinine Clearance 43 mL/min (70-130); Carbon Dioxide 22 mmol/L (23-31); Chloride 107 mmol/L (98-107); Estimated GFR 21; Globulin 1.8 g/dL (2.4-3.5); Glucose 96 mg/dL (80-115); Potassium 4.7 mmol/L (3.5-5.1); Protein, Total 4.6 g/dL (5.8-8.1); Sodium 136 mmol/L (136-145)
[2022-03-18] MEDS: Ascorbic Acid 500 mg Chewable Tablet PO SCH (08:26)
[2022-03-18] MEDS: Dronedarone HCl 400 MG TAB PO SCH ×2 (08:26→21:09)
[2022-03-18] MEDS: Potassium Chloride 10 MEQ TAB PO SCH (08:26)
[2022-03-18] MEDS: Allopurinol 300 MG TAB PO SCH (08:26)
[2022-03-18] MEDS: Ferrous Sulfate 325 MG TAB PO SCH (08:26)
[2022-03-18] MEDS: Cholecalciferol (Vitamin D3) 400 UNITS TAB PO SCH (08:26)
[2022-03-18] MEDS: Furosemide 20 MG TAB PO SCH (08:28)
[2022-03-18] MEDS: Nebivolol HCl 2.5 MG TAB PO SCH ×2 (08:28→22:48)
[2022-03-18] MEDS: Sodium Chloride 0.9% 1,000 ML IV SCH (08:28)
[2022-03-18] MEDS: cefTRIAXone\\ROCEPHIN 1 GM in Sodium Chloride 0.9% 100 ML IVPB SCH (11:41)
[2022-03-18] MEDS ORDERED: Famotidine 20 MG TAB PO SCH (12:00)
[2022-03-18 17:32] LABS: CK (CPK) 10 U/L (29-168)
[2022-03-18 17:41] LABS: Phosphorus 1.7 mg/dL (2.3-4.7)
[2022-03-18] MEDS ORDERED: Sodium Phosphate 15 MMOL in Sodium Chloride 0.9% 250 ML 250 ML IVPB SCH (18:00)
[2022-03-18] MEDS: Montelukast Sodium 10 mg Tablet PO SCH (21:09)
[2022-03-18] MEDS: Atorvastatin Calcium 10 MG TAB PO SCH (21:09)
[2022-03-18] MEDS: Insulin Glargine 30 UNITS/0.3 ML VIAL SC SCH (21:15)
[2022-03-18] MEDS: Doxycycline 100 MG in Sodium Chloride 0.9% 100 ML IVPB SCH (21:18)
[2022-03-18] MEDS: Lisinopril 10 MG TAB PO SCH (22:48)
[2022-03-19 06:26] LABS: Sodium, Urine 37 mmol/L (Not Available); Urea Nitrogen, Random Urine 377 mg/dl
[2022-03-19 06:45] LABS: Hemoglobin 7.9 g/dL (12.0-16.0); Mean Corpuscular HGB CONC 30.3 g/dL (32.0-36.0); Mean Corpuscular Hemoglobin 29.6 pg (27.0-31.0); Mean Corpuscular Volume 97.8 fL (78.0-98.0); Mean Platelet Volume 8.8 fL (7.4-10.4); Platelet Count 143 thou/uL (130-400); RBC Distribution Width 15.4 % (11.5-14.5); Red Blood Cell (RBC) Count 2.65 mill/uL (4.20-5.40); White Blood Cell (WBC) Count 41.3 thou/uL (4.8-10.8)
[2022-03-19 07:06] LABS: Anion Gap 11 mmol/L (10-20); BUN (Urea Nitrogen) 21 mg/dL (9.8-20.1); Calc. Creatinine Clearance 53 mL/min (70-130); Carbon Dioxide 24 mmol/L (23-31); Chloride 108 mmol/L (98-107); Potassium 4.5 mmol/L (3.5-5.1); Sodium 138 mmol/L (136-145)
[2022-03-19 07:07] LABS: ALT (SGPT) Less than 7 U/L (8-55); AST (SGOT) 9 U/L (5-34); Albumin 2.8 g/dL (3.4-4.8); Alkaline Phosphatase 76 U/L (40-110); Bilirubin, Total 0.6 mg/dL (0.2-1.2); Calcium 8.1 mg/dL (7.8-10.44); Estimated GFR 26; Glucose 93 mg/dL (80-115); Protein, Total 4.8 g/dL (5.8-8.1)
[2022-03-19 08:10] LABS: Band 6 % (5-11); Lymphocytes 78 % (21-51); MDiff Complete? YES; Monocytes 2 % (0-10); Neutrophil 14 % (42-75); Nucleated RBC 1 % (0); Platelet Morphology Comment Appears Adequate; Polychromasia SLIGHT = 2-3 cells (100X) (0-2/hpf)
[2022-03-19] MEDS: Potassium Chloride 10 MEQ TAB PO SCH (08:28)
[2022-03-19] MEDS: Allopurinol 300 MG TAB PO SCH (08:28)
[2022-03-19] MEDS: Ferrous Sulfate 325 MG TAB PO SCH (08:28)
[2022-03-19] MEDS: Famotidine 20 MG TAB PO SCH (08:28)
[2022-03-19] MEDS: methylPREDNISolone Sod Succ 40 MG VIAL IVP SCH (08:28)
[2022-03-19] MEDS: Dronedarone HCl 400 MG TAB PO SCH ×2 (08:28→20:52)
[2022-03-19] MEDS: Ascorbic Acid 500 mg Chewable Tablet PO SCH (08:28)
[2022-03-19] MEDS: Cholecalciferol (Vitamin D3) 400 UNITS TAB PO SCH (08:28)
[2022-03-19] MEDS: Nebivolol HCl 2.5 MG TAB PO SCH ×2 (08:29→20:53)
[2022-03-19] MEDS ORDERED: Furosemide 20 MG/2 ML VIAL SLOW IVP SCH (09:00)
[2022-03-19] MEDS ORDERED: Albumin 25% 25 GM/100 ML BOT IVPB SCH ×2 (09:30→12:00)
[2022-03-19] MEDS: Doxycycline 100 MG in Sodium Chloride 0.9% 100 ML IVPB SCH ×2 (10:30→20:52)
[2022-03-19] MEDS: cefTRIAXone\\ROCEPHIN 1 GM in Sodium Chloride 0.9% 100 ML IVPB SCH (12:59)
[2022-03-19] MEDS ORDERED: Furosemide 40 MG/4 ML VIAL SLOW IVP SCH (14:00)
[2022-03-19] MEDS: Atorvastatin Calcium 10 MG TAB PO SCH (20:52)
[2022-03-19] MEDS: Montelukast Sodium 10 mg Tablet PO SCH (20:52)
[2022-03-19] MEDS: Insulin Glargine 30 UNITS/0.3 ML VIAL SC SCH (20:52)
[2022-03-20 06:07] LABS: ALT (SGPT) Less than 7 U/L (8-55); AST (SGOT) 7 U/L (5-34); Albumin 2.9 g/dL (3.4-4.8); Alkaline Phosphatase 84 U/L (40-110); Anion Gap 13 mmol/L (10-20); BUN (Urea Nitrogen) 22 mg/dL (9.8-20.1); Bilirubin, Total 0.5 mg/dL (0.2-1.2); Calc. Creatinine Clearance 60 mL/min (70-130); Calcium 8.2 mg/dL (7.8-10.44); Carbon Dioxide 23 mmol/L (23-31); Chloride 108 mmol/L (98-107); Estimated GFR 31; Glucose 139 mg/dL (80-115); Potassium 4.6 mmol/L (3.5-5.1); Protein, Total 4.9 g/dL (5.8-8.1); Sodium 139 mmol/L (136-145)
[2022-03-20 06:13] LABS: Band 7 % (5-11); Hypochromia SLIGHT = 6-15 cells (100X) (0-5/hpf); Lymphocytes 55 % (21-51); MDiff Complete? YES; Mean Corpuscular HGB CONC 29.6 g/dL (32.0-36.0); Mean Corpuscular Hemoglobin 29.6 pg (27.0-31.0); Mean Platelet Volume 8.6 fL (7.4-10.4); Monocytes 1 % (0-10); Neutrophil 35 % (42-75); Platelet Count 130 thou/uL (130-400); Platelet Morphology Comment Appears Adequate; RBC Distribution Width 15.4 % (11.5-14.5); Reactive Lymphocytes 2 % (0-10); Red Blood Cell (RBC) Count 2.69 mill/uL (4.20-5.40); White Blood Cell (WBC) Count 38.3 thou/uL (4.8-10.8)
[2022-03-20] MEDS: Albumin 25% 25 GM/100 ML BOT IVPB SCH ×4 (07:23→23:14)
[2022-03-20] MEDS: Ascorbic Acid 500 mg Chewable Tablet PO SCH (08:39)
[2022-03-20] MEDS: methylPREDNISolone Sod Succ 40 MG VIAL IVP SCH (08:39)
[2022-03-20] MEDS: Cholecalciferol (Vitamin D3) 400 UNITS TAB PO SCH (08:39)
[2022-03-20] MEDS: Allopurinol 300 MG TAB PO SCH (08:39)
[2022-03-20] MEDS: Potassium Chloride 10 MEQ TAB PO SCH (08:39)
[2022-03-20] MEDS: Ferrous Sulfate 325 MG TAB PO SCH (08:39)
[2022-03-20] MEDS: Famotidine 20 MG TAB PO SCH (08:39)
[2022-03-20] MEDS: Dronedarone HCl 400 MG TAB PO SCH ×2 (08:39→20:32)
[2022-03-20] MEDS: Doxycycline 100 MG in Sodium Chloride 0.9% 100 ML IVPB SCH ×2 (08:40→20:27)
[2022-03-20] MEDS: Nebivolol HCl 2.5 MG TAB PO SCH ×2 (08:40→20:31)
[2022-03-20] MEDS: cefTRIAXone\\ROCEPHIN 1 GM in Sodium Chloride 0.9% 100 ML IVPB SCH (12:01)
[2022-03-20] MEDS: Montelukast Sodium 10 mg Tablet PO SCH (20:32)
[2022-03-20] MEDS: Atorvastatin Calcium 10 MG TAB PO SCH (20:32)
[2022-03-20] MEDS: Insulin Glargine 30 UNITS/0.3 ML VIAL SC SCH (20:32)
[2022-03-21 06:39] LABS: Hemoglobin 6.8 g/dL (12.0-16.0); Mean Corpuscular HGB CONC 30.3 g/dL (32.0-36.0); Mean Corpuscular Hemoglobin 29.8 pg (27.0-31.0); Mean Corpuscular Volume 98.4 fL (78.0-98.0); Red Blood Cell (RBC) Count 2.29 mill/uL (4.20-5.40); White Blood Cell (WBC) Count 35.1 thou/uL (4.8-10.8)
[2022-03-21 07:00] LABS: ALT (SGPT) Less than 7 U/L (8-55); AST (SGOT) 7 U/L (5-34); Albumin 3.8 g/dL (3.4-4.8); Alkaline Phosphatase 62 U/L (40-110); Anion Gap 12 mmol/L (10-20); BUN (Urea Nitrogen) 21 mg/dL (9.8-20.1); Bilirubin, Total 0.6 mg/dL (0.2-1.2); Calc. Creatinine Clearance 72 mL/min (70-130); Calcium 8.5 mg/dL (7.8-10.44); Carbon Dioxide 23 mmol/L (23-31); Chloride 108 mmol/L (98-107); Estimated GFR 38; Globulin 1.7 g/dL (2.4-3.5); Glucose 118 mg/dL (80-115); Potassium 4.2 mmol/L (3.5-5.1); Protein, Total 5.5 g/dL (5.8-8.1); Sodium 139 mmol/L (136-145)
[2022-03-21 07:28] LABS: Band 2 % (5-11); Lymphocytes 69 % (21-51); MDiff Complete? YES; Mean Platelet Volume 8.7 fL (7.4-10.4); Metamyelocyte 1 % (0-0); Monocytes 8 % (0-10); Neutrophil 19 % (42-75); Nucleated RBC 1 % (0); Platelet Count 104 thou/uL (130-400); Platelet Morphology Comment Appears Decreased; Polychromasia SLIGHT = 2-3 cells (100X) (0-2/hpf); RBC Distribution Width 15.6 % (11.5-14.5); Reactive Lymphocytes 1 % (0-10)
[2022-03-21] MEDS: Ferrous Sulfate 325 MG TAB PO SCH (08:31)
[2022-03-21] MEDS: Potassium Chloride 10 MEQ TAB PO SCH (08:31)
[2022-03-21] MEDS: Ascorbic Acid 500 mg Chewable Tablet PO SCH (08:31)
[2022-03-21] MEDS: Dexamethasone 4 MG TAB PO SCH (08:31)
[2022-03-21] MEDS: Allopurinol 300 MG TAB PO SCH (08:31)
[2022-03-21] MEDS: Cholecalciferol (Vitamin D3) 400 UNITS TAB PO SCH (08:31)
[2022-03-21] MEDS: Famotidine 20 MG TAB PO SCH (08:31)
[2022-03-21] MEDS: Doxycycline 100 MG in Sodium Chloride 0.9% 100 ML IVPB SCH ×2 (08:32→20:11)
[2022-03-21] MEDS: Dronedarone HCl 400 MG TAB PO SCH ×2 (08:32→20:17)
[2022-03-21] MEDS: Nebivolol HCl 2.5 MG TAB PO SCH ×2 (08:32→20:17)
[2022-03-21] MEDS: cefTRIAXone\\ROCEPHIN 1 GM in Sodium Chloride 0.9% 100 ML IVPB SCH (12:20)
[2022-03-21] MEDS: Acetaminophen 325 MG TAB PO PRN (12:26)
[2022-03-21] MEDS: Montelukast Sodium 10 mg Tablet PO SCH (20:17)
[2022-03-21] MEDS: Atorvastatin Calcium 10 MG TAB PO SCH (20:18)
[2022-03-21] MEDS: Insulin Glargine 30 UNITS/0.3 ML VIAL SC SCH (20:18)
[2022-03-22] MEDS: Nebivolol HCl 2.5 MG TAB PO SCH ×2 (07:39→20:47)
[2022-03-22] MEDS: Ascorbic Acid 500 mg Chewable Tablet PO SCH (07:40)
[2022-03-22] MEDS: Famotidine 20 MG TAB PO SCH (07:40)
[2022-03-22] MEDS: Allopurinol 300 MG TAB PO SCH (07:40)
[2022-03-22] MEDS: Cholecalciferol (Vitamin D3) 400 UNITS TAB PO SCH (07:40)
[2022-03-22] MEDS: Ferrous Sulfate 325 MG TAB PO SCH (07:41)
[2022-03-22] MEDS: Dexamethasone 4 MG TAB PO SCH (07:41)
[2022-03-22] MEDS: Doxycycline 100 MG in Sodium Chloride 0.9% 100 ML IVPB SCH ×2 (07:41→20:46)
[2022-03-22] MEDS: Potassium Chloride 10 MEQ TAB PO SCH (07:41)
[2022-03-22] MEDS: Dronedarone HCl 400 MG TAB PO SCH ×2 (07:44→20:49)
[2022-03-22 07:53] VITALS: TEMP 97.8
[2022-03-22 08:35] LABS: ALT (SGPT) Less than 7 U/L (8-55); AST (SGOT) 9 U/L (5-34); Albumin 3.7 g/dL (3.4-4.8); Alkaline Phosphatase 63 U/L (40-110); Anion Gap 14 mmol/L (10-20); BUN (Urea Nitrogen) 18 mg/dL (9.8-20.1); Bilirubin, Total 0.8 mg/dL (0.2-1.2); Calc. Creatinine Clearance 81 mL/min (70-130); Calcium 8.5 mg/dL (7.8-10.44); Carbon Dioxide 23 mmol/L (23-31); Chloride 109 mmol/L (98-107); Estimated GFR 44; Globulin 1.8 g/dL (2.4-3.5); Glucose 105 mg/dL (80-115); Potassium 4.4 mmol/L (3.5-5.1); Protein, Total 5.5 g/dL (5.8-8.1); Sodium 142 mmol/L (136-145)
[2022-03-22 08:54] LABS: Band 8 % (5-11); Differential Comment Immature Cell(s); Hemoglobin 7.9 g/dL (12.0-16.0); Hypochromia SLIGHT = 6-15 cells (100X) (0-5/hpf); Lymphocytes 60 % (21-51); MDiff Complete? YES; Mean Corpuscular HGB CONC 31.3 g/dL (32.0-36.0); Mean Corpuscular Hemoglobin 30.7 pg (27.0-31.0); Mean Platelet Volume 9.3 fL (7.4-10.4); Myelocyte 4 % (0-0); Neutrophil 20 % (42-75); Nucleated RBC 1 % (0); Platelet Count 80 thou/uL (130-400); Platelet Morphology Comment Appears Decreased; Polychromasia MODERATE = 3-4 cells (100X) (0-2/hpf); RBC Distribution Width 15.7 % (11.5-14.5); Reactive Lymphocytes 5 % (0-10); Red Blood Cell (RBC) Count 2.57 mill/uL (4.20-5.40); Stomatocytes SLIGHT = 2-5 cells (100X) (0-1/hpf); Tear Drops SLIGHT = 2-5 cells (100X) (0-1/hpf); White Blood Cell (WBC) Count 34.2 thou/uL (4.8-10.8)
[2022-03-22] MEDS ORDERED: Furosemide 20 MG/2 ML VIAL SLOW IVP SCH (11:30)
[2022-03-22] MEDS ORDERED: guaiFENesin/DM ER PO SCH (11:30)
[2022-03-22] MEDS: cefTRIAXone\\ROCEPHIN 1 GM in Sodium Chloride 0.9% 100 ML IVPB SCH (11:44)
[2022-03-22] MEDS: Insulin Glargine 30 UNITS/0.3 ML VIAL SC SCH (20:46)
[2022-03-22] MEDS: Montelukast Sodium 10 mg Tablet PO SCH (20:47)
[2022-03-22] MEDS: guaiFENesin/DM ER PO SCH (20:47)
[2022-03-22] MEDS: Atorvastatin Calcium 10 MG TAB PO SCH (20:47)
[2022-03-23 07:53] LABS: Hemoglobin 7.8 g/dL (12.0-16.0); Mean Corpuscular HGB CONC 30.4 g/dL (32.0-36.0); Mean Corpuscular Hemoglobin 29.7 pg (27.0-31.0); Mean Corpuscular Volume 97.5 fL (78.0-98.0); Mean Platelet Volume 9.4 fL (7.4-10.4); Platelet Count 74 thou/uL (130-400); RBC Distribution Width 15.4 % (11.5-14.5); Red Blood Cell (RBC) Count 2.61 mill/uL (4.20-5.40); White Blood Cell (WBC) Count 20.2 thou/uL (4.8-10.8)
[2022-03-23 08:18] LABS: Anion Gap 14 mmol/L (10-20); BUN (Urea Nitrogen) 20 mg/dL (9.8-20.1); Calc. Creatinine Clearance 86 mL/min (70-130); Calcium 8.8 mg/dL (7.8-10.44); Carbon Dioxide 24 mmol/L (23-31); Chloride 107 mmol/L (98-107); Estimated GFR 47; Glucose 119 mg/dL (80-115); Potassium 4.5 mmol/L (3.5-5.1); Sodium 140 mmol/L (136-145)
[2022-03-23] MEDS: Dexamethasone 4 MG TAB PO SCH (08:26)
[2022-03-23] MEDS: Cholecalciferol (Vitamin D3) 400 UNITS TAB PO SCH (08:27)
[2022-03-23] MEDS: Ascorbic Acid 500 mg Chewable Tablet PO SCH (08:27)
[2022-03-23] MEDS: Nebivolol HCl 2.5 MG TAB PO SCH ×2 (08:27→21:05)
[2022-03-23] MEDS: Potassium Chloride 10 MEQ TAB PO SCH (08:27)
[2022-03-23] MEDS: Ferrous Sulfate 325 MG TAB PO SCH (08:27)
[2022-03-23] MEDS: Allopurinol 300 MG TAB PO SCH (08:27)
[2022-03-23] MEDS: Dronedarone HCl 400 MG TAB PO SCH ×2 (08:27→21:05)
[2022-03-23] MEDS: Famotidine 20 MG TAB PO SCH (08:27)
[2022-03-23] MEDS: guaiFENesin/DM ER PO SCH ×2 (08:28→21:05)
[2022-03-23 09:08] LABS: Band 4 % (5-11); Lymphocytes 73 % (21-51); MDiff Complete? YES; Monocytes 6 % (0-10); Neutrophil 17 % (42-75); Platelet Morphology Comment Appears Decreased; Polychromasia SLIGHT = 2-3 cells (100X) (0-2/hpf)
[2022-03-23] MEDS: Doxycycline 100 MG in Sodium Chloride 0.9% 100 ML IVPB SCH ×2 (09:42→21:04)
[2022-03-23] MEDS: cefTRIAXone\\ROCEPHIN 1 GM in Sodium Chloride 0.9% 100 ML IVPB SCH (11:56)
[2022-03-23] MEDS: Atorvastatin Calcium 10 MG TAB PO SCH (21:05)
[2022-03-23] MEDS: Insulin Glargine 30 UNITS/0.3 ML VIAL SC SCH (21:05)
[2022-03-23] MEDS: Montelukast Sodium 10 mg Tablet PO SCH (21:05)
[2022-03-24] MEDS: Cholecalciferol (Vitamin D3) 400 UNITS TAB PO SCH (08:08)
[2022-03-24] MEDS: Ferrous Sulfate 325 MG TAB PO SCH (08:08)
[2022-03-24] MEDS: Nebivolol HCl 2.5 MG TAB PO SCH ×2 (08:08→20:37)
[2022-03-24] MEDS: Dronedarone HCl 400 MG TAB PO SCH ×2 (08:09→20:37)
[2022-03-24] MEDS: Potassium Chloride 10 MEQ TAB PO SCH (08:09)
[2022-03-24] MEDS: Dexamethasone 4 MG TAB PO SCH (08:09)
[2022-03-24] MEDS: Ascorbic Acid 500 mg Chewable Tablet PO SCH (08:09)
[2022-03-24] MEDS: guaiFENesin/DM ER PO SCH ×2 (08:09→20:37)
[2022-03-24] MEDS: Allopurinol 300 MG TAB PO SCH (08:09)
[2022-03-24] MEDS: Famotidine 20 MG TAB PO SCH (08:09)
[2022-03-24] MEDS: Doxycycline 100 MG in Sodium Chloride 0.9% 100 ML IVPB SCH (08:32)
[2022-03-24] MEDS ORDERED: guaiFENesin ER 600 MG TAB PO SCH ×2 (09:35→09:45)
[2022-03-24] MEDS: Montelukast Sodium 10 mg Tablet PO SCH (20:37)
[2022-03-24] MEDS: guaiFENesin ER 600 MG TAB PO SCH (20:37)
[2022-03-24] MEDS: Atorvastatin Calcium 10 MG TAB PO SCH (20:37)
[2022-03-24] MEDS: Doxycycline 100 MG CAP PO SCH (20:37)
[2022-03-24] MEDS: Insulin Glargine 30 UNITS/0.3 ML VIAL SC SCH (20:38)
[2022-03-25] MEDS: Potassium Chloride 10 MEQ TAB PO SCH (08:36)
[2022-03-25] MEDS: Nebivolol HCl 2.5 MG TAB PO SCH ×2 (08:36→20:34)
[2022-03-25] MEDS: Allopurinol 300 MG TAB PO SCH (08:36)
[2022-03-25] MEDS: Ferrous Sulfate 325 MG TAB PO SCH (08:36)
[2022-03-25] MEDS: Doxycycline 100 MG CAP PO SCH ×2 (08:36→20:34)
[2022-03-25] MEDS: guaiFENesin ER 600 MG TAB PO SCH ×2 (08:36→20:34)
[2022-03-25] MEDS: Dexamethasone 4 MG TAB PO SCH (08:36)
[2022-03-25] MEDS: Dronedarone HCl 400 MG TAB PO SCH ×2 (08:36→20:34)
[2022-03-25] MEDS: Ascorbic Acid 500 mg Chewable Tablet PO SCH (08:36)
[2022-03-25] MEDS: guaiFENesin/DM ER PO SCH ×2 (08:37→20:34)
[2022-03-25] MEDS: Famotidine 20 MG TAB PO SCH (08:37)
[2022-03-25] MEDS: Cholecalciferol (Vitamin D3) 400 UNITS TAB PO SCH (08:37)
[2022-03-25 09:01] LABS: Anion Gap 15 mmol/L (10-20); BUN (Urea Nitrogen) 23 mg/dL (9.8-20.1); Calc. Creatinine Clearance 86 mL/min (70-130); Calcium 8.5 mg/dL (7.8-10.44); Carbon Dioxide 21 mmol/L (23-31); Chloride 108 mmol/L (98-107); Estimated GFR 47; Glucose 142 mg/dL (80-115); Potassium 5.3 mmol/L (3.5-5.1); Sodium 139 mmol/L (136-145)
[2022-03-25 09:05] LABS: Band 2 % (5-11); Hemoglobin 7.8 g/dL (12.0-16.0); Hypochromia SLIGHT = 6-15 cells (100X) (0-5/hpf); Lymphocytes 76 % (21-51); MDiff Complete? YES; Mean Corpuscular HGB CONC 30.8 g/dL (32.0-36.0); Mean Corpuscular Hemoglobin 30.4 pg (27.0-31.0); Mean Corpuscular Volume 98.6 fL (78.0-98.0); Mean Platelet Volume 10.9 fL (7.4-10.4); Monocytes 2 % (0-10); Neutrophil 12 % (42-75); Nucleated RBC 1 % (0); Platelet Count 62 thou/uL (130-400); Platelet Morphology Comment Appears Decreased; Polychromasia MODERATE = 3-4 cells (100X) (0-2/hpf); RBC Distribution Width 16.1 % (11.5-14.5); Reactive Lymphocytes 8 % (0-10); Red Blood Cell (RBC) Count 2.58 mill/uL (4.20-5.40); Tear Drops SLIGHT = 2-5 cells (100X) (0-1/hpf); White Blood Cell (WBC) Count 35.3 thou/uL (4.8-10.8)
[2022-03-25] MEDS ORDERED: Fluticasone Propionate Nasal Spray 16 gm Bottle NASAL SCH (11:00)
[2022-03-25] MEDS: Insulin Glargine 30 UNITS/0.3 ML VIAL SC SCH (20:34)
[2022-03-25] MEDS: Atorvastatin Calcium 10 MG TAB PO SCH (20:34)
[2022-03-25] MEDS: Fluticasone Propionate Nasal Spray 16 gm Bottle NASAL SCH (20:34)
[2022-03-25] MEDS: Montelukast Sodium 10 mg Tablet PO SCH (20:34)
[2022-03-26 06:56] LABS: Hemoglobin 7.7 g/dL (12.0-16.0); Mean Corpuscular HGB CONC 30.5 g/dL (32.0-36.0); Mean Corpuscular Hemoglobin 30.2 pg (27.0-31.0); Mean Corpuscular Volume 98.8 fL (78.0-98.0); Mean Platelet Volume 11.2 fL (7.4-10.4); Platelet Count 69 thou/uL (130-400); Red Blood Cell (RBC) Count 2.56 mill/uL (4.20-5.40); White Blood Cell (WBC) Count 40.4 thou/uL (4.8-10.8)
[2022-03-26 07:30] LABS: Anion Gap 14 mmol/L (10-20); BUN (Urea Nitrogen) 25 mg/dL (9.8-20.1); Calc. Creatinine Clearance 93 mL/min (70-130); Calcium 8.3 mg/dL (7.8-10.44); Carbon Dioxide 22 mmol/L (23-31); Chloride 110 mmol/L (98-107); Estimated GFR 52; Glucose 129 mg/dL (80-115); Potassium 5.2 mmol/L (3.5-5.1); Sodium 141 mmol/L (136-145)
[2022-03-26] MEDS: Allopurinol 300 MG TAB PO SCH (07:49)
[2022-03-26] MEDS: Nebivolol HCl 2.5 MG TAB PO SCH (07:49)
[2022-03-26] MEDS: Doxycycline 100 MG CAP PO SCH (07:49)
[2022-03-26] MEDS: Famotidine 20 MG TAB PO SCH (07:49)
[2022-03-26] MEDS: Dexamethasone 4 MG TAB PO SCH (07:50)
[2022-03-26] MEDS: Ascorbic Acid 500 mg Chewable Tablet PO SCH (07:50)
[2022-03-26] MEDS: Ferrous Sulfate 325 MG TAB PO SCH (07:50)
[2022-03-26] MEDS: guaiFENesin ER 600 MG TAB PO SCH (07:50)
[2022-03-26] MEDS: guaiFENesin/DM ER PO SCH (07:50)
[2022-03-26] MEDS: Cholecalciferol (Vitamin D3) 400 UNITS TAB PO SCH (07:50)
[2022-03-26] MEDS: Dronedarone HCl 400 MG TAB PO SCH (07:50)
[2022-03-26] MEDS: Fluticasone Propionate Nasal Spray 16 gm Bottle NASAL SCH (07:51)
[2022-03-26 08:19] LABS: Band 1 % (5-11); Lymphocytes 93 % (21-51); MDiff Complete? YES; Monocytes 2 % (0-10); Neutrophil 4 % (42-75); Nucleated RBC 1 % (0); Platelet Morphology Comment Appears Decreased; Polychromasia SLIGHT = 2-3 cells (100X) (0-2/hpf)
[2022-03-26 10:56] VITALS: BP 133/73
[2022-03-26] MEDS ORDERED: Famotidine 20 MG TAB PO SCH (21:00)
== END 2022-03-26 16:15 | disposition home health service (06) | DRG 871 ==
LOC: T4-A 05:21 → OBSVTOIN 08:29
PROVIDERS: ADMIT Student in an Organized Health Care Education/Training Program; ATTEND Family Medicine
PROC: 3E03329 Introduction of Other Anti-infective into Peripheral Vein, Percutaneous Approach (ICD-10-PCS; 2022-03-17)
PROC: 30233J1 Transfusion of Nonautologous Serum Albumin into Peripheral Vein, Percutaneous Approach (ICD-10-PCS; 2022-03-19)
PROC: 30233N1 Transfusion of Nonautologous Red Blood Cells into Peripheral Vein, Percutaneous Approach (ICD-10-PCS; principal; 2022-03-21)
DX: A41.9 Sepsis, unspecified organism (principal); J96.01 Acute respiratory failure with hypoxia; C91.10 Chronic lymphocytic leukemia of B-cell type not having achieved remission; L03.115 Cellulitis of right lower limb; N17.9 Acute kidney failure, unspecified; Z68.41 Body mass index [BMI] 40.0-44.9, adult; J44.1 Chronic obstructive pulmonary disease with (acute) exacerbation; R65.20 Severe sepsis without septic shock; E78.5 Hyperlipidemia, unspecified; M10.9 Gout, unspecified; N18.9 Chronic kidney disease, unspecified; E11.22 Type 2 diabetes mellitus with diabetic chronic kidney disease; I12.9 Hypertensive chronic kidney disease with stage 1 through stage 4 chronic kidney disease, or unspecified chronic kidney disease; D69.6 Thrombocytopenia, unspecified; I48.0 Paroxysmal atrial fibrillation; E66.01 Morbid (severe) obesity due to excess calories; J44.9 Chronic obstructive pulmonary disease, unspecified; Z88.8 Allergy status to other drugs, medicaments and biological substances; Z79.4 Long term (current) use of insulin; Z79.51 Long term (current) use of inhaled steroids; Z79.899 Other long term (current) drug therapy; Z79.01 Long term (current) use of anticoagulants; Z98.890 Other specified postprocedural states; Z90.710 Acquired absence of both cervix and uterus
CPT/HCPCS: 36415; 36416; 36430; 71045; 76770; 80048; 80053; 82550; 83605; 83735; 83880; 84100; 84145; 84300; 84484; 84540; 85025; 85652; 86140; 86850; 86900; 86901; 87040; 93005; 93010; 94640; 97139; J0696; J1815; J1940; J2920; J3490; J7050; J7620; J8540; P9016; P9047

== ENCOUNTER 2022-04-06 10:43 | Day surgery (SDC) | payer MEDICARE ==
[2022-04-06] MEDS ORDERED: Acetaminophen 500 MG TAB PO PRN (12:00)
[2022-04-06] MEDS ORDERED: diphenhydrAMINE 25 MG CAP PO PRN (12:00)
[2022-04-06] MEDS ORDERED: Acetaminophen 500 MG TAB ONE (13:00)
[2022-04-06 16:35] VITALS: BP 130/60; TEMP 98.3
== END 2022-04-06 16:35 | disposition home or self-care (01) ==
LOC: ONC/OP 10:43
PROVIDERS: ATTEND Internal Medicine Hematology & Oncology
PROC: 30233N1 Transfusion of Nonautologous Red Blood Cells into Peripheral Vein, Percutaneous Approach (ICD-10-PCS; principal; 2022-04-06)
DX: D64.9 Anemia, unspecified (principal); D69.6 Thrombocytopenia, unspecified; Z88.8 Allergy status to other drugs, medicaments and biological substances; Z91.048 Other nonmedicinal substance allergy status
CPT/HCPCS: 36430; 80053; 82248; 83615; 84100; 84550; 86850; 86900; 86901; P9016

== ENCOUNTER 2022-04-09 12:02 | Inpatient (IN) | payer MEDICARE ==
[2022-04-09 12:58] LABS: Hemoglobin 7.6 g/dL (12.0-16.0); INR-International Normal Ratio 1.6; Mean Corpuscular HGB CONC 31.7 g/dL (32.0-36.0); Mean Corpuscular Hemoglobin 31.6 pg (27.0-31.0); Mean Corpuscular Volume 99.5 fl (78.0-98.0); Mean Platelet Volume 10.2 fL (7.4-10.4); PTT 38.8 sec (22.9-36.1); Platelet Count 62 thou/uL (130-400); Prothrombin Time 19.9 sec (12.0-14.7); RBC Distribution Width 15.6 % (11.5-14.5); White Blood Cell (WBC) Count 16.3 thou/uL (4.8-10.8)
[2022-04-09 13:12] LABS: AST (SGOT) 5 U/L (5-34); Bilirubin, Total 1.2 mg/dL (0.2-1.2); Calc. Creatinine Clearance 0 mL/min (70-130); Calcium 8.5 mg/dL (7.8-10.44); Carbon Dioxide 22 mmol/L (23-31); Chloride 104 mmol/L (98-107); Estimated GFR 19; Protein, Total 5.1 g/dL (5.8-8.1); Sodium 136 mmol/L (136-145)
[2022-04-09 13:16] LABS: Band 1 % (5-11); Hypochromia SLIGHT = 6-15 cells (100X) (0-5/hpf); Lymphocytes 94 % (21-51); MDiff Complete? YES; Macrocytosis SLIGHT = 6-15 cells (100X) (0-5/hpf); Neutrophil 5 % (42-75); Platelet Morphology Comment Appears Decreased; Polychromasia SLIGHT = 2-3 cells (100X) (0-2/hpf)
[2022-04-09 13:38] LABS: ALT (SGPT) 8 U/L (8-55); Albumin 3.2 g/dL (3.4-4.8); Alkaline Phosphatase 46 U/L (40-110); Anion Gap 16 mmol/L (10-20); BUN (Urea Nitrogen) 30 mg/dL (9.8-20.1); Globulin 1.9 g/dL (2.4-3.5); Glucose 160 mg/dL (80-115); Lipase 4 U/L (8-78)
[2022-04-09 14:34] LABS: Bacteria/HPF 3+ HPF (None Seen); Bilirubin Negative (Negative); Blood, Urine 1+ (Negative); Glucose, Urine (Dipstick) Normal (Negative); Ketone, Urine Negative (Negative); Leukocyte Negative Leu/uL (Negative); Nitrite Negative (Negative); Protein, Urine (Dipstick) 300 mg/dL (Neg-Trace); Squamous Epithelial 0-3 HPF (0-3); Urobilinogen Normal mg/dL (Less than 2); pH, Urine 5.5 (5.0-9.0)
[2022-04-09 14:37] LABS: Clarity Turbid (Clear)
[2022-04-09] MEDS ORDERED: cefTRIAXone\\ROCEPHIN 2 GM VIAL ONE (16:06)
[2022-04-09] MEDS ORDERED: Ondansetron ODT 4 MG TAB PO PRN (16:48)
[2022-04-09] MEDS ORDERED: Sodium Chloride 0.9% 1,000 ML IV SCH ×2 (17:00→17:30)
[2022-04-09] MEDS ORDERED: Dextrose 50% Abboject 50 ML SYRINGE SLOW IVP PRN (17:02)
[2022-04-09] MEDS ORDERED: HumaLOG 300 UNITS/3 ML VIAL SC PRN ×2 (17:02)
[2022-04-09] MEDS ORDERED: Albuterol Sulfate 2.5 mg/3 ml Neb NEB PRN (17:10)
[2022-04-09] MEDS ORDERED: Albumin 25% 25 GM/100 ML BOT IVPB SCH (17:30)
[2022-04-09] MEDS ORDERED: Midodrine HCl 5 MG TAB PO SCH (17:45)
[2022-04-09] MEDS ORDERED: NOREPINEPHRINE 8 MG/250 ML-D5W 250 ML IVPB SCH (17:45)
[2022-04-09] MEDS ORDERED: Vancomycin 1 GM in Premix Bag 1 BAG IVPB SCH (17:45)
[2022-04-09 19:00] VITALS: BMI 42.4
[2022-04-09 19:29] LABS: Creatinine, Urine 200.38 mg/dL (47-110)
[2022-04-09 19:31] LABS: Microalbumin Urine Greater than 200.0 mg/dL (0.5-50.0)
[2022-04-09 19:43] LABS: Anion Gap 15 mmol/L (10-20); BUN (Urea Nitrogen) 28 mg/dL (9.8-20.1); Calc. Creatinine Clearance 45 mL/min (70-130); Carbon Dioxide 20 mmol/L (23-31); Chloride 106 mmol/L (98-107); Estimated GFR 22; Glucose 124 mg/dL (80-115); Phosphorus 4.5 mg/dL (2.3-4.7); Potassium 3.6 mmol/L (3.5-5.1); Sodium 137 mmol/L (136-145)
[2022-04-09 19:45] LABS: Troponin I 0.011 ng/mL (< 0.028)
[2022-04-09] MEDS ORDERED: Vancomycin Dose by Levels Sliding Scale (Wt > 99) FS SCH (20:15)
[2022-04-09] MEDS ORDERED: VANCOMYCIN 2 GRAM/500 ML BAG 2 GM in Premix Bag 1 BAG IVPB SCH (20:15)
[2022-04-09] MEDS ORDERED: Mometasone 200 MCG/Formoterol 5 MCG 120 PUFF INHALER INH PRN (21:34)
[2022-04-09] MEDS: Cefepime 1 GM in Sodium Chloride 0.9% 100 ML IVPB SCH (22:06)
[2022-04-09] MEDS: Albumin 25% 25 GM/100 ML BOT IVPB SCH (23:30)
[2022-04-10] MEDS: Acetaminophen 325 MG TAB PO PRN (05:26)
[2022-04-10] MEDS: Albumin 25% 25 GM/100 ML BOT IVPB SCH ×2 (05:27→11:31)
[2022-04-10 06:32] LABS: Band 5 % (5-11); Hemoglobin 6.5 g/dL (12.0-16.0); Lymphocytes 88 % (21-51); MDiff Complete? YES; Mean Corpuscular Hemoglobin 30.6 pg (27.0-31.0); Mean Platelet Volume 10.6 fL (7.4-10.4); Monocytes 1 % (0-10); Neutrophil 6 % (42-75); Platelet Count 54 thou/uL (130-400); Platelet Morphology Comment Appears Decreased; Red Blood Cell (RBC) Count 2.13 mill/uL (4.20-5.40); White Blood Cell (WBC) Count 10.1 thou/uL (4.8-10.8)
[2022-04-10 06:37] LABS: Anion Gap 13 mmol/L (10-20); BUN (Urea Nitrogen) 28 mg/dL (9.8-20.1); Calc. Creatinine Clearance 52 mL/min (70-130); Calcium 7.8 mg/dL (7.8-10.44); Carbon Dioxide 20 mmol/L (23-31); Chloride 108 mmol/L (98-107); Estimated GFR 26; Glucose 83 mg/dL (80-115); Potassium 3.6 mmol/L (3.5-5.1); Sodium 137 mmol/L (136-145)
[2022-04-10] MEDS: Ascorbic Acid 500 mg Chewable Tablet PO SCH (09:53)
[2022-04-10] MEDS: Cholecalciferol (Vitamin D3) 400 UNITS TAB PO SCH (09:53)
[2022-04-10] MEDS: Cefepime 1 GM in Sodium Chloride 0.9% 100 ML IVPB SCH ×2 (09:53→20:25)
[2022-04-10] MEDS: Ferrous Sulfate 325 MG TAB PO SCH (09:55)
[2022-04-10] MEDS: Dronedarone HCl 400 MG TAB PO SCH ×2 (09:55→17:48)
[2022-04-10 11:18] LABS: Magnesium 1.9 mg/dL (1.6-2.6)
[2022-04-10] MEDS ORDERED: cefTRIAXone\\ROCEPHIN 1 GM in Sodium Chloride 0.9% 100 ML IVPB SCH (16:00)
[2022-04-10] MEDS: Insulin Glargine 30 UNITS/0.3 ML VIAL SC SCH (20:25)
[2022-04-10] MEDS: Montelukast Sodium 10 mg Tablet PO SCH (20:25)
[2022-04-10] MEDS: Atorvastatin Calcium 10 MG TAB PO SCH (20:25)
[2022-04-10 20:37] LABS: Vancomycin, Random 12.9 ug/mL (See Comment)
[2022-04-10 20:38] LABS: Hemoglobin 7.3 g/dL (12.0-16.0)
[2022-04-10] MEDS ORDERED: Vancomycin 1 GM in Premix Bag 1 BAG IVPB SCH (22:00)
[2022-04-11 06:10] LABS: Anion Gap 16 mmol/L (10-20); BUN (Urea Nitrogen) 25 mg/dL (9.8-20.1); Calc. Creatinine Clearance 57 mL/min (70-130); Calcium 8.1 mg/dL (7.8-10.44); Carbon Dioxide 17 mmol/L (23-31); Chloride 110 mmol/L (98-107); Estimated GFR 29; Glucose 82 mg/dL (80-115); Potassium 3.6 mmol/L (3.5-5.1); Sodium 139 mmol/L (136-145)
[2022-04-11 06:29] LABS: Anisocytosis SLIGHT = 6-15 cells (100X) (0-5/hpf); Band 8 % (5-11); Hemoglobin 7.7 g/dL (12.0-16.0); Lymphocytes 88 % (21-51); MDiff Complete? YES; Mean Corpuscular HGB CONC 31.4 g/dL (32.0-36.0); Mean Corpuscular Hemoglobin 31.4 pg (27.0-31.0); Mean Platelet Volume 11.3 fL (7.4-10.4); Monocytes 1 % (0-10); Neutrophil 3 % (42-75); Platelet Count 55 10x3/uL (130-400); Platelet Morphology Comment Appears Decreased; RBC Distribution Width 15.6 % (11.5-14.5); Red Blood Cell (RBC) Count 2.45 mill/uL (4.20-5.40); White Blood Cell (WBC) Count 14.4 10x3/uL (4.8-10.8)
[2022-04-11] MEDS: Cefepime 1 GM in Sodium Chloride 0.9% 100 ML IVPB SCH ×2 (09:28→20:22)
[2022-04-11] MEDS: Ascorbic Acid 500 mg Chewable Tablet PO SCH (09:28)
[2022-04-11] MEDS: Ferrous Sulfate 325 MG TAB PO SCH (09:28)
[2022-04-11] MEDS: Dronedarone HCl 400 MG TAB PO SCH ×2 (09:28→16:14)
[2022-04-11] MEDS: Ondansetron PF 4 MG/2 ML Vial IVP PRN (09:34)
[2022-04-11] MEDS: Cholecalciferol (Vitamin D3) 400 UNITS TAB PO SCH (10:11)
[2022-04-11] MEDS: Atorvastatin Calcium 10 MG TAB PO SCH (20:22)
[2022-04-11] MEDS: Montelukast Sodium 10 mg Tablet PO SCH (20:22)
[2022-04-11] MEDS: Insulin Glargine 30 UNITS/0.3 ML VIAL SC SCH (20:23)
[2022-04-12 05:04] LABS: Anion Gap 12 mmol/L (10-20); BUN (Urea Nitrogen) 22 mg/dL (9.8-20.1); Calc. Creatinine Clearance 57 mL/min (70-130); Calcium 8.3 mg/dL (7.8-10.44); Carbon Dioxide 21 mmol/L (23-31); Chloride 111 mmol/L (98-107); Estimated GFR 29; Glucose 85 mg/dL (80-115); Potassium 3.4 mmol/L (3.5-5.1); Sodium 141 mmol/L (136-145)
[2022-04-12 05:14] LABS: Eosinophils 1 % (0-10); Hemoglobin 7.8 g/dL (12.0-16.0); Lymphocytes 98 % (21-51); MDiff Complete? YES; Mean Corpuscular HGB CONC 30.9 g/dL (32.0-36.0); Mean Corpuscular Hemoglobin 31.2 pg (27.0-31.0); Mean Platelet Volume 10.5 fL (7.4-10.4); Monocytes 1 % (0-10); Platelet Count 57 10x3/uL (130-400); Platelet Morphology Comment Appears Decreased; RBC Distribution Width 15.7 % (11.5-14.5); Red Blood Cell (RBC) Count 2.49 mill/uL (4.20-5.40); White Blood Cell (WBC) Count 11.3 10x3/uL (4.8-10.8)
[2022-04-12] MEDS: Cefepime 1 GM in Sodium Chloride 0.9% 100 ML IVPB SCH ×2 (10:09→21:06)
[2022-04-12] MEDS: Cholecalciferol (Vitamin D3) 400 UNITS TAB PO SCH (10:10)
[2022-04-12] MEDS: Ascorbic Acid 500 mg Chewable Tablet PO SCH (10:10)
[2022-04-12] MEDS: Dronedarone HCl 400 MG TAB PO SCH ×2 (10:10→16:24)
[2022-04-12] MEDS: Ferrous Sulfate 325 MG TAB PO SCH (10:10)
[2022-04-12] MEDS ORDERED: Potassium Chloride 40 MEQ in Premix Bag 1 BAG IVPB SCH (10:15)
[2022-04-12] MEDS: Potassium Chloride 20 MEQ in Premix Bag 1 BAG IVPB SCH ×2 (10:55→14:16)
[2022-04-12] MEDS: Atorvastatin Calcium 10 MG TAB PO SCH (21:06)
[2022-04-12] MEDS: Montelukast Sodium 10 mg Tablet PO SCH (21:06)
[2022-04-12] MEDS: Insulin Glargine 30 UNITS/0.3 ML VIAL SC SCH (21:06)
[2022-04-13 05:07] LABS: Hemoglobin 7.7 g/dL (12.0-16.0); Hypochromia SLIGHT = 6-15 cells (100X) (0-5/hpf); Lymphocytes 98 % (21-51); MDiff Complete? YES; Mean Corpuscular HGB CONC 30.9 g/dL (32.0-36.0); Mean Corpuscular Hemoglobin 30.9 pg (27.0-31.0); Mean Corpuscular Volume 99.9 fl (78.0-98.0); Mean Platelet Volume 11.6 fL (7.4-10.4); Monocytes 1 % (0-10); Neutrophil 1 % (42-75); Platelet Count 56 10x3/uL (130-400); Platelet Morphology Comment Appears Decreased; RBC Distribution Width 15.4 % (11.5-14.5); Red Blood Cell (RBC) Count 2.49 mill/uL (4.20-5.40); White Blood Cell (WBC) Count 10.3 10x3/uL (4.8-10.8)
[2022-04-13 05:15] LABS: Anion Gap 10 mmol/L (10-20); BUN (Urea Nitrogen) 20 mg/dL (9.8-20.1); Calc. Creatinine Clearance 62 mL/min (70-130); Calcium 8.4 mg/dL (7.8-10.44); Carbon Dioxide 21 mmol/L (23-31); Chloride 111 mmol/L (98-107); Estimated GFR 31; Glucose 91 mg/dL (80-115); Magnesium 1.6 mg/dL (1.6-2.6); Phosphorus 1.8 mg/dL (2.3-4.7); Potassium 3.7 mmol/L (3.5-5.1); Sodium 138 mmol/L (136-145)
[2022-04-13] MEDS: Ferrous Sulfate 325 MG TAB PO SCH (09:21)
[2022-04-13] MEDS: Dronedarone HCl 400 MG TAB PO SCH ×2 (09:21→16:53)
[2022-04-13] MEDS: Ascorbic Acid 500 mg Chewable Tablet PO SCH (09:21)
[2022-04-13] MEDS: Cefepime 1 GM in Sodium Chloride 0.9% 100 ML IVPB SCH ×2 (09:22→21:40)
[2022-04-13] MEDS: Cholecalciferol (Vitamin D3) 400 UNITS TAB PO SCH (09:22)
[2022-04-13] MEDS: Albumin 25% 25 GM/100 ML BOT IVPB SCH ×3 (12:09→23:25)
[2022-04-13] MEDS ORDERED: Sodium Phosphate 30 MMOL in Sodium Chloride 0.9% 250 ML 250 ML IVPB SCH (13:00)
[2022-04-13] MEDS: Atorvastatin Calcium 10 MG TAB PO SCH (21:41)
[2022-04-13] MEDS: Insulin Glargine 30 UNITS/0.3 ML VIAL SC SCH (21:41)
[2022-04-13] MEDS: Montelukast Sodium 10 mg Tablet PO SCH (21:42)
[2022-04-13] MEDS: Ondansetron PF 4 MG/2 ML Vial IVP PRN (23:29)
[2022-04-14] MEDS: Albumin 25% 25 GM/100 ML BOT IVPB SCH (05:02)
[2022-04-14 06:48] LABS: Anion Gap 16 mmol/L (10-20); BUN (Urea Nitrogen) 19 mg/dL (9.8-20.1); Calc. Creatinine Clearance 64 mL/min (70-130); Calcium 8.4 mg/dL (7.8-10.44); Carbon Dioxide 16 mmol/L (23-31); Chloride 112 mmol/L (98-107); Estimated GFR 33; Glucose 90 mg/dL (80-115); Magnesium 1.7 mg/dL (1.6-2.6); Phosphorus 2.8 mg/dL (2.3-4.7); Potassium 3.9 mmol/L (3.5-5.1); Sodium 140 mmol/L (136-145)
[2022-04-14 07:07] LABS: Mean Corpuscular HGB CONC 31.7 g/dL (32.0-36.0); Mean Corpuscular Hemoglobin 31.8 pg (27.0-31.0); Mean Platelet Volume 10.2 fL (7.4-10.4); Platelet Count 42 10x3/uL (130-400); RBC Distribution Width 15.5 % (11.5-14.5); Red Blood Cell (RBC) Count 2.21 mill/uL (4.20-5.40)
[2022-04-14] MEDS: Cefepime 1 GM in Sodium Chloride 0.9% 100 ML IVPB SCH ×2 (08:55→21:16)
[2022-04-14] MEDS: Cholecalciferol (Vitamin D3) 400 UNITS TAB PO SCH (08:56)
[2022-04-14] MEDS: Ferrous Sulfate 325 MG TAB PO SCH (08:56)
[2022-04-14] MEDS: Ascorbic Acid 500 mg Chewable Tablet PO SCH (08:56)
[2022-04-14] MEDS: Dronedarone HCl 400 MG TAB PO SCH ×2 (08:56→17:40)
[2022-04-14 09:53] LABS: Band 4 % (5-11); Eosinophils 1 % (0-10); Lymphocytes 86 % (21-51); MDiff Complete? YES; Monocytes 4 % (0-10); Neutrophil 4 % (42-75); Platelet Morphology Comment Appears Decreased; Polychromasia SLIGHT = 2-3 cells (100X) (0-2/hpf); Reactive Lymphocytes 1 % (0-10)
[2022-04-14] MEDS ORDERED: Furosemide 40 MG/4 ML VIAL SLOW IVP SCH (13:00)
[2022-04-14] MEDS: Insulin Glargine 30 UNITS/0.3 ML VIAL SC SCH (21:16)
[2022-04-14] MEDS: Montelukast Sodium 10 mg Tablet PO SCH (21:16)
[2022-04-14] MEDS: Atorvastatin Calcium 10 MG TAB PO SCH (21:16)
[2022-04-15] MEDS: Cefepime 1 GM in Sodium Chloride 0.9% 100 ML IVPB SCH ×2 (08:54→20:40)
[2022-04-15] MEDS: Cholecalciferol (Vitamin D3) 400 UNITS TAB PO SCH (08:55)
[2022-04-15] MEDS: Ferrous Sulfate 325 MG TAB PO SCH (08:55)
[2022-04-15] MEDS: Dronedarone HCl 400 MG TAB PO SCH ×2 (08:55→17:18)
[2022-04-15] MEDS: Ascorbic Acid 500 mg Chewable Tablet PO SCH (08:55)
[2022-04-15 11:32] LABS: Hemoglobin 7.3 g/dL (12.0-16.0); Mean Corpuscular HGB CONC 30.7 g/dL (32.0-36.0); Mean Corpuscular Hemoglobin 30.7 pg (27.0-31.0); Mean Platelet Volume 11.5 fL (7.4-10.4); Platelet Count 47 10x3/uL (130-400); RBC Distribution Width 15.4 % (11.5-14.5); Red Blood Cell (RBC) Count 2.39 mill/uL (4.20-5.40); White Blood Cell (WBC) Count 8.3 10x3/uL (4.8-10.8)
[2022-04-15 11:37] LABS: Anion Gap 13 mmol/L (10-20); BUN (Urea Nitrogen) 18 mg/dL (9.8-20.1); Calc. Creatinine Clearance 67 mL/min (70-130); Calcium 8.8 mg/dL (7.8-10.44); Carbon Dioxide 23 mmol/L (23-31); Chloride 111 mmol/L (98-107); Estimated GFR 36; Glucose 84 mg/dL (80-115); Potassium 3.3 mmol/L (3.5-5.1); Sodium 144 mmol/L (136-145)
[2022-04-15 12:16] LABS: Band 1 % (5-11); Eosinophils 3 % (0-10); Lymphocytes 80 % (21-51); MDiff Complete? YES; Monocytes 1 % (0-10); Neutrophil 14 % (42-75); Platelet Morphology Comment Appears Decreased
[2022-04-15] MEDS ORDERED: Furosemide 40 MG/4 ML VIAL SLOW IVP SCH (12:45)
[2022-04-15] MEDS ORDERED: Potassium Chloride 20 MEQ TAB PO SCH (12:45)
[2022-04-15] MEDS: Acetaminophen 325 MG TAB PO PRN (17:18)
[2022-04-15] MEDS: Insulin Glargine 30 UNITS/0.3 ML VIAL SC SCH (20:40)
[2022-04-15] MEDS: Montelukast Sodium 10 mg Tablet PO SCH (20:40)
[2022-04-15] MEDS: Atorvastatin Calcium 10 MG TAB PO SCH (20:40)
[2022-04-16 07:01] LABS: Anion Gap 16 mmol/L (10-20); BUN (Urea Nitrogen) 17 mg/dL (9.8-20.1); Calc. Creatinine Clearance 61 mL/min (70-130); Carbon Dioxide 23 mmol/L (23-31); Chloride 112 mmol/L (98-107); Estimated GFR 33; Glucose 75 mg/dL (80-115); Potassium 3.5 mmol/L (3.5-5.1); Sodium 147 mmol/L (136-145)
[2022-04-16 07:32] LABS: Hemoglobin 8.1 g/dL (12.0-16.0); Mean Corpuscular HGB CONC 31.2 g/dL (32.0-36.0); Mean Corpuscular Hemoglobin 31.7 pg (27.0-31.0); Mean Platelet Volume 11.2 fL (7.4-10.4); Platelet Count 53 10x3/uL (130-400); RBC Distribution Width 15.1 % (11.5-14.5); Red Blood Cell (RBC) Count 2.54 mill/uL (4.20-5.40); White Blood Cell (WBC) Count 8.5 10x3/uL (4.8-10.8)
[2022-04-16] MEDS: Ferrous Sulfate 325 MG TAB PO SCH (09:09)
[2022-04-16] MEDS: Ascorbic Acid 500 mg Chewable Tablet PO SCH (09:09)
[2022-04-16] MEDS: Dronedarone HCl 400 MG TAB PO SCH ×2 (09:09→16:57)
[2022-04-16] MEDS: Cefepime 1 GM in Sodium Chloride 0.9% 100 ML IVPB SCH (09:09)
[2022-04-16] MEDS: Cholecalciferol (Vitamin D3) 400 UNITS TAB PO SCH (09:16)
[2022-04-16 10:08] LABS: Band 14 % (5-11); Lymphocytes 70 % (21-51); MDiff Complete? YES; Monocytes 6 % (0-10); Neutrophil 10 % (42-75); Platelet Morphology Comment Appears Decreased; Polychromasia SLIGHT = 2-3 cells (100X) (0-2/hpf)
[2022-04-16] MEDS: Dextrose 5% in Water 1,000 ML IV PRN ×2 (10:59→16:57)
[2022-04-16] MEDS ORDERED: Furosemide 100 MG/10 ML VIAL SLOW IVP SCH (11:45)
[2022-04-16] MEDS ORDERED: Sterile Water 10 ML ONE (16:45)
[2022-04-16] MEDS: Atorvastatin Calcium 10 MG TAB PO SCH (20:53)
[2022-04-16] MEDS: Montelukast Sodium 10 mg Tablet PO SCH (20:53)
[2022-04-16] MEDS: Insulin Glargine 30 UNITS/0.3 ML VIAL SC SCH (20:53)
[2022-04-16] MEDS ORDERED: Dronedarone HCl 400 MG TAB PO SCH (21:00)
[2022-04-17 02:10] LABS: Hemoglobin 8.2 g/dL (12.0-16.0); Mean Corpuscular HGB CONC 29.8 g/dL (32.0-36.0); Mean Corpuscular Hemoglobin 30.5 pg (27.0-31.0); Mean Platelet Volume 11.4 fL (7.4-10.4); Platelet Count 59 10x3/uL (130-400); RBC Distribution Width 15.5 % (11.5-14.5); Red Blood Cell (RBC) Count 2.67 mill/uL (4.20-5.40); White Blood Cell (WBC) Count 15.4 10x3/uL (4.8-10.8)
[2022-04-17 02:11] LABS: Anion Gap 19 mmol/L (10-20); BUN (Urea Nitrogen) 18 mg/dL (9.8-20.1); Calc. Creatinine Clearance 59 mL/min (70-130); Calcium 9.2 mg/dL (7.8-10.44); Carbon Dioxide 19 mmol/L (23-31); Chloride 110 mmol/L (98-107); Estimated GFR 32; Glucose 80 mg/dL (80-115); Magnesium 1.5 mg/dL (1.6-2.6); Potassium 3.5 mmol/L (3.5-5.1); Sodium 144 mmol/L (136-145)
[2022-04-17 02:23] LABS: Band 4 % (5-11); Hypochromia SLIGHT = 6-15 cells (100X) (0-5/hpf); Lymphocytes 70 % (21-51); MDiff Complete? YES; Macrocytosis SLIGHT = 6-15 cells (100X) (0-5/hpf); Monocytes 2 % (0-10); Neutrophil 21 % (42-75); Platelet Morphology Comment Appears Decreased; Reactive Lymphocytes 3 % (0-10)
[2022-04-17] MEDS ORDERED: Magnesium 2 GM/50 ML(in water) 2 GM in Premix Bag 1 BAG IVPB SCH ×2 (03:00→09:00)
[2022-04-17] MEDS ORDERED: Electrolyte Replacement Protocol 1 EACH FS SCH (03:00)
[2022-04-17] MEDS ORDERED: Potassium Chloride 20 MEQ TAB PO SCH ×2 (03:00→09:00)
[2022-04-17 08:28] LABS: Potassium 3.9 mmol/L (3.5-5.1)
[2022-04-17] MEDS: Cholecalciferol (Vitamin D3) 400 UNITS TAB PO SCH (09:04)
[2022-04-17] MEDS: Dronedarone HCl 400 MG TAB PO SCH ×2 (09:04→16:14)
[2022-04-17] MEDS: Ascorbic Acid 500 mg Chewable Tablet PO SCH (09:04)
[2022-04-17] MEDS: Ferrous Sulfate 325 MG TAB PO SCH (09:04)
[2022-04-17] MEDS: Acetaminophen 325 MG TAB PO PRN (16:13)
[2022-04-17] MEDS: Montelukast Sodium 10 mg Tablet PO SCH (20:53)
[2022-04-17] MEDS: Atorvastatin Calcium 10 MG TAB PO SCH (20:53)
[2022-04-17] MEDS: Insulin Glargine 30 UNITS/0.3 ML VIAL SC SCH (21:01)
[2022-04-18 05:39] LABS: Anion Gap 14 mmol/L (10-20); BUN (Urea Nitrogen) 21 mg/dL (9.8-20.1); Calc. Creatinine Clearance 53 mL/min (70-130); Calcium 9.3 mg/dL (7.8-10.44); Carbon Dioxide 26 mmol/L (23-31); Chloride 108 mmol/L (98-107); Estimated GFR 28; Glucose 86 mg/dL (80-115); Magnesium 1.8 mg/dL (1.6-2.6); Potassium 3.6 mmol/L (3.5-5.1); Sodium 144 mmol/L (136-145)
[2022-04-18] MEDS ORDERED: Magnesium 2 GM/50 ML(in water) 2 GM in Premix Bag 1 BAG IVPB SCH (08:00)
[2022-04-18 08:03] LABS: Band 2 % (5-11); Hemoglobin 7.8 g/dL (12.0-16.0); Hypochromia SLIGHT = 6-15 cells (100X) (0-5/hpf); Lymphocytes 69 % (21-51); MDiff Complete? YES; Mean Corpuscular HGB CONC 29.6 g/dL (32.0-36.0); Mean Platelet Volume 11.6 fL (7.4-10.4); Metamyelocyte 1 % (0-0); Monocytes 3 % (0-10); Neutrophil 25 % (42-75); Platelet Count 55 10x3/uL (130-400); Platelet Morphology Comment Appears Decreased; RBC Distribution Width 15.5 % (11.5-14.5); Red Blood Cell (RBC) Count 2.59 mill/uL (4.20-5.40); White Blood Cell (WBC) Count 18.2 10x3/uL (4.8-10.8)
[2022-04-18] MEDS: Dronedarone HCl 400 MG TAB PO SCH ×2 (09:48→17:28)
[2022-04-18] MEDS: Cholecalciferol (Vitamin D3) 400 UNITS TAB PO SCH (09:48)
[2022-04-18] MEDS: Ascorbic Acid 500 mg Chewable Tablet PO SCH (09:48)
[2022-04-18] MEDS: Ferrous Sulfate 325 MG TAB PO SCH (09:49)
[2022-04-18] MEDS: Ampicillin/Sulbactam 1.5 GM in Sodium Chloride 0.9% 100 ML IVPB SCH ×3 (11:00→21:01)
[2022-04-18 19:42] LABS: Bilirubin Negative (Negative); Blood, Urine 1+ (Negative); CAUTI Indications for Culture Alt mental st,lethar; Clarity Turbid (Clear); Glucose, Urine (Dipstick) Normal (Negative); Ketone, Urine 10 mg/dL (Negative); Leukocyte Negative Leu/uL (Negative); Nitrite Negative (Negative); Protein, Urine (Dipstick) 100 mg/dL (Neg-Trace); Specific Gravity, Urine 1.018 (1.002-1.036); Squamous Epithelial 0-3 HPF (0-3); Urobilinogen Normal mg/dL (Less than 2); WBC/HPF 0-3 HPF (0-3); pH, Urine 5.5 (5.0-9.0)
[2022-04-18 19:49] LABS: Bacteria/HPF 1+ HPF (None Seen); Urine Culture Reflex No No
[2022-04-18] MEDS: Montelukast Sodium 10 mg Tablet PO SCH (21:00)
[2022-04-18] MEDS: Atorvastatin Calcium 10 MG TAB PO SCH (21:01)
[2022-04-18] MEDS: Insulin Glargine 30 UNITS/0.3 ML VIAL SC SCH (21:01)
[2022-04-19] MEDS: Ampicillin/Sulbactam 1.5 GM in Sodium Chloride 0.9% 100 ML IVPB SCH ×4 (03:05→21:27)
[2022-04-19 05:01] LABS: ALT (SGPT) Less than 7 U/L (8-55); AST (SGOT) 5 U/L (5-34); Albumin 3.5 g/dL (3.4-4.8); Alkaline Phosphatase 65 U/L (40-110); Anion Gap 13 mmol/L (10-20); BUN (Urea Nitrogen) 21 mg/dL (9.8-20.1); Bilirubin, Total 0.9 mg/dL (0.2-1.2); Calc. Creatinine Clearance 47 mL/min (70-130); Carbon Dioxide 26 mmol/L (23-31); Chloride 108 mmol/L (98-107); Estimated GFR 24; Globulin 1.8 g/dL (2.4-3.5); Glucose 103 mg/dL (80-115); Magnesium 2.2 mg/dL (1.6-2.6); Potassium 3.8 mmol/L (3.5-5.1); Protein, Total 5.3 g/dL (5.8-8.1); Sodium 143 mmol/L (136-145)
[2022-04-19 05:20] LABS: Band 4 % (5-11); Hemoglobin 7.8 g/dL (12.0-16.0); Hypochromia SLIGHT = 6-15 cells (100X) (0-5/hpf); Lymphocytes 70 % (21-51); MDiff Complete? YES; Mean Corpuscular HGB CONC 30.2 g/dL (32.0-36.0); Mean Corpuscular Hemoglobin 30.6 pg (27.0-31.0); Mean Platelet Volume 11.6 fL (7.4-10.4); Neutrophil 26 % (42-75); Platelet Count 53 10x3/uL (130-400); Platelet Morphology Comment Appears Decreased; RBC Distribution Width 15.6 % (11.5-14.5); Red Blood Cell (RBC) Count 2.54 mill/uL (4.20-5.40)
[2022-04-19] MEDS: Dronedarone HCl 400 MG TAB PO SCH ×2 (10:08→16:40)
[2022-04-19] MEDS: Ascorbic Acid 500 mg Chewable Tablet PO SCH (10:08)
[2022-04-19] MEDS: Cholecalciferol (Vitamin D3) 400 UNITS TAB PO SCH (10:09)
[2022-04-19] MEDS: Ferrous Sulfate 325 MG TAB PO SCH (10:09)
[2022-04-19] MEDS: Sodium Chloride 0.9% 1,000 ML IV SCH (10:09)
[2022-04-19] MEDS: Montelukast Sodium 10 mg Tablet PO SCH (21:27)
[2022-04-19] MEDS: Atorvastatin Calcium 10 MG TAB PO SCH (21:28)
[2022-04-19] MEDS: Insulin Glargine 30 UNITS/0.3 ML VIAL SC SCH (21:28)
[2022-04-20] MEDS: Ampicillin/Sulbactam 1.5 GM in Sodium Chloride 0.9% 100 ML IVPB SCH ×4 (03:11→21:51)
[2022-04-20] MEDS: Sodium Chloride 0.9% 1,000 ML IV SCH ×2 (03:11→14:52)
[2022-04-20 05:14] LABS: Anion Gap 13 mmol/L (10-20); BUN (Urea Nitrogen) 20 mg/dL (9.8-20.1); Calc. Creatinine Clearance 48 mL/min (70-130); Calcium 8.6 mg/dL (7.8-10.44); Carbon Dioxide 26 mmol/L (23-31); Chloride 108 mmol/L (98-107); Estimated GFR 24; Glucose 95 mg/dL (80-115); Magnesium 1.9 mg/dL (1.6-2.6); Potassium 3.5 mmol/L (3.5-5.1); Sodium 143 mmol/L (136-145)
[2022-04-20 05:32] LABS: Band 3 % (5-11); Eosinophils 2 % (0-10); Hemoglobin 7.8 g/dL (12.0-16.0); Lymphocytes 69 % (21-51); MDiff Complete? YES; Mean Corpuscular HGB CONC 31.6 g/dL (32.0-36.0); Mean Corpuscular Hemoglobin 31.9 pg (27.0-31.0); Mean Platelet Volume 10.9 fL (7.4-10.4); Monocytes 6 % (0-10); Neutrophil 20 % (42-75); Platelet Count 39 10x3/uL (130-400); Platelet Morphology Comment Appears Decreased; RBC Distribution Width 15.4 % (11.5-14.5); Red Blood Cell (RBC) Count 2.44 mill/uL (4.20-5.40); White Blood Cell (WBC) Count 23.8 10x3/uL (4.8-10.8)
[2022-04-20] MEDS ORDERED: Magnesium 2 GM/50 ML(in water) 2 GM in Premix Bag 1 BAG IVPB SCH (08:00)
[2022-04-20] MEDS ORDERED: Potassium Chloride 20 MEQ TAB PO SCH (08:00)
[2022-04-20] MEDS: Ascorbic Acid 500 mg Chewable Tablet PO SCH (09:18)
[2022-04-20] MEDS: Dronedarone HCl 400 MG TAB PO SCH ×2 (09:18→16:23)
[2022-04-20] MEDS: Cholecalciferol (Vitamin D3) 400 UNITS TAB PO SCH (09:18)
[2022-04-20] MEDS: Ferrous Sulfate 325 MG TAB PO SCH (09:19)
[2022-04-20 11:15] LABS: SARS-CoV-2 IgG Spike Ab Interp Reactive (NonReactive); SARS-CoV-2 IgG Spike Conc/Indx 78.6 AU/mL (0.00-50.0)
[2022-04-20] MEDS: Montelukast Sodium 10 mg Tablet PO SCH (21:50)
[2022-04-20] MEDS: Insulin Glargine 30 UNITS/0.3 ML VIAL SC SCH (21:50)
[2022-04-20] MEDS: Atorvastatin Calcium 10 MG TAB PO SCH (21:50)
[2022-04-21 05:20] LABS: ALT (SGPT) Less than 7 U/L (8-55); AST (SGOT) 4 U/L (5-34); Albumin 3.5 g/dL (3.4-4.8); Alkaline Phosphatase 68 U/L (40-110); Anion Gap 12 mmol/L (10-20); BUN (Urea Nitrogen) 21 mg/dL (9.8-20.1); Bilirubin, Total 0.8 mg/dL (0.2-1.2); Calc. Creatinine Clearance 49 mL/min (70-130); Calcium 8.5 mg/dL (7.8-10.44); Carbon Dioxide 26 mmol/L (23-31); Chloride 109 mmol/L (98-107); Estimated GFR 26; Globulin 1.7 g/dL (2.4-3.5); Glucose 91 mg/dL (80-115); Potassium 3.8 mmol/L (3.5-5.1); Protein, Total 5.2 g/dL (5.8-8.1); Sodium 143 mmol/L (136-145)
[2022-04-21] MEDS: Ampicillin/Sulbactam 1.5 GM in Sodium Chloride 0.9% 100 ML IVPB SCH ×2 (05:39→10:34)
[2022-04-21 05:45] LABS: Band 2 % (5-11); Eosinophils 2 % (0-10); Hemoglobin 7.4 g/dL (12.0-16.0); Lymphocytes 66 % (21-51); MDiff Complete? YES; Mean Corpuscular Hemoglobin 30.6 pg (27.0-31.0); Monocytes 2 % (0-10); Neutrophil 28 % (42-75); Platelet Count 38 10x3/uL (130-400); Platelet Morphology Comment Appears Decreased; RBC Distribution Width 15.7 % (11.5-14.5); Red Blood Cell (RBC) Count 2.43 mill/uL (4.20-5.40)
[2022-04-21] MEDS ORDERED: Magnesium 2 GM/50 ML(in water) 2 GM in Premix Bag 1 BAG IVPB SCH (08:00)
[2022-04-21] MEDS: Ferrous Sulfate 325 MG TAB PO SCH (10:33)
[2022-04-21] MEDS: Dronedarone HCl 400 MG TAB PO SCH ×2 (10:33→15:28)
[2022-04-21] MEDS: Ascorbic Acid 500 mg Chewable Tablet PO SCH (10:34)
[2022-04-21] MEDS: Cholecalciferol (Vitamin D3) 400 UNITS TAB PO SCH (10:34)
[2022-04-21] MEDS: Sodium Chloride 0.9% 1,000 ML IV SCH (10:34)
[2022-04-21] MEDS ORDERED: Meropenem 1 GM in Sodium Chloride 0.9% 100 ML IVPB SCH ×2 (14:15→21:00)
[2022-04-21] MEDS: Atorvastatin Calcium 10 MG TAB PO SCH (23:20)
[2022-04-21] MEDS: Montelukast Sodium 10 mg Tablet PO SCH (23:21)
[2022-04-21] MEDS: Meropenem 1 GM in Sodium Chloride 0.9% 100 ML IVPB SCH (23:21)
[2022-04-21] MEDS: Insulin Glargine 30 UNITS/0.3 ML VIAL SC SCH ×2 (23:21→23:26)
[2022-04-22] MEDS: Sodium Chloride 0.9% 1,000 ML IV SCH ×2 (05:49→21:56)
[2022-04-22] MEDS: Ascorbic Acid 500 mg Chewable Tablet PO SCH (09:33)
[2022-04-22] MEDS: Cholecalciferol (Vitamin D3) 400 UNITS TAB PO SCH (09:33)
[2022-04-22] MEDS: Ferrous Sulfate 325 MG TAB PO SCH (09:34)
[2022-04-22] MEDS: Dronedarone HCl 400 MG TAB PO SCH ×2 (09:34→16:18)
[2022-04-22] MEDS: Meropenem 1 GM in Sodium Chloride 0.9% 100 ML IVPB SCH ×2 (11:26→22:00)
[2022-04-22] MEDS: Insulin Glargine 30 UNITS/0.3 ML VIAL SC SCH (19:21)
[2022-04-22] MEDS: Atorvastatin Calcium 10 MG TAB PO SCH (20:03)
[2022-04-22] MEDS: Acetaminophen 325 MG TAB PO PRN (20:03)
[2022-04-22] MEDS: Montelukast Sodium 10 mg Tablet PO SCH (20:03)
[2022-04-23 05:30] LABS: ALT (SGPT) Less than 7 U/L (8-55); AST (SGOT) 4 U/L (5-34); Albumin 3.2 g/dL (3.4-4.8); Alkaline Phosphatase 63 U/L (40-110); Anion Gap 15 mmol/L (10-20); BUN (Urea Nitrogen) 24 mg/dL (9.8-20.1); Bilirubin, Total 0.7 mg/dL (0.2-1.2); Calc. Creatinine Clearance 51 mL/min (70-130); Calcium 8.1 mg/dL (7.8-10.44); Carbon Dioxide 21 mmol/L (23-31); Chloride 110 mmol/L (98-107); Estimated GFR 26; Globulin 1.8 g/dL (2.4-3.5); Glucose 79 mg/dL (80-115); Magnesium 2.1 mg/dL (1.6-2.6); Sodium 142 mmol/L (136-145)
[2022-04-23 05:33] LABS: Band 2 % (5-11); Hemoglobin 6.7 g/dL (12.0-16.0); Lymphocytes 69 % (21-51); MDiff Complete? YES; Mean Corpuscular HGB CONC 30.5 g/dL (32.0-36.0); Mean Platelet Volume 7.5 fL (7.4-10.4); Monocytes 2 % (0-10); Neutrophil 27 % (42-75); Platelet Count 42 10x3/uL (130-400); Platelet Morphology Comment Appears Decreased; RBC Distribution Width 15.4 % (11.5-14.5); Red Blood Cell (RBC) Count 2.16 mill/uL (4.20-5.40); White Blood Cell (WBC) Count 17.3 10x3/uL (4.8-10.8)
[2022-04-23] MEDS: Ascorbic Acid 500 mg Chewable Tablet PO SCH (09:41)
[2022-04-23] MEDS: Ferrous Sulfate 325 MG TAB PO SCH (09:41)
[2022-04-23] MEDS: Dronedarone HCl 400 MG TAB PO SCH ×2 (09:41→17:17)
[2022-04-23] MEDS: Cholecalciferol (Vitamin D3) 400 UNITS TAB PO SCH (09:41)
[2022-04-23] MEDS: Meropenem 1 GM in Sodium Chloride 0.9% 100 ML IVPB SCH ×2 (12:30→23:23)
[2022-04-23] MEDS: Sodium Chloride 0.9% 1,000 ML IV SCH (20:27)
[2022-04-23] MEDS: Montelukast Sodium 10 mg Tablet PO SCH (21:07)
[2022-04-23] MEDS: Insulin Glargine 30 UNITS/0.3 ML VIAL SC SCH (21:07)
[2022-04-23] MEDS: Atorvastatin Calcium 10 MG TAB PO SCH (21:07)
[2022-04-23] MEDS: Ondansetron PF 4 MG/2 ML Vial IVP PRN (21:24)
[2022-04-23 23:49] LABS: Hemoglobin 7.1 g/dL (12.0-16.0)
[2022-04-24 06:42] LABS: Anion Gap 12 mmol/L (10-20); BUN (Urea Nitrogen) 23 mg/dL (9.8-20.1); Calc. Creatinine Clearance 53 mL/min (70-130); Calcium 8.1 mg/dL (7.8-10.44); Carbon Dioxide 23 mmol/L (23-31); Chloride 110 mmol/L (98-107); Estimated GFR 28; Glucose 108 mg/dL (80-115); Potassium 3.8 mmol/L (3.5-5.1); Sodium 141 mmol/L (136-145)
[2022-04-24 06:44] LABS: Anisocytosis SLIGHT = 6-15 cells (100X) (0-5/hpf); Band 8 % (5-11); Hemoglobin 6.7 g/dL (12.0-16.0); Lymphocytes 78 % (21-51); MDiff Complete? YES; Mean Corpuscular HGB CONC 29.7 g/dL (32.0-36.0); Mean Corpuscular Hemoglobin 29.3 pg (27.0-31.0); Mean Corpuscular Volume 98.8 fl (78.0-98.0); Monocytes 4 % (0-10); Neutrophil 10 % (42-75); Platelet Count 46 10x3/uL (130-400); Platelet Morphology Comment Appears Decreased; RBC Distribution Width 15.9 % (11.5-14.5); White Blood Cell (WBC) Count 25.8 10x3/uL (4.8-10.8)
[2022-04-24] MEDS: Ferrous Sulfate 325 MG TAB PO SCH (08:36)
[2022-04-24] MEDS: Dronedarone HCl 400 MG TAB PO SCH ×2 (08:36→16:49)
[2022-04-24] MEDS: Ascorbic Acid 500 mg Chewable Tablet PO SCH (08:36)
[2022-04-24] MEDS: Cholecalciferol (Vitamin D3) 400 UNITS TAB PO SCH (08:36)
[2022-04-24] MEDS: Meropenem 1 GM in Sodium Chloride 0.9% 100 ML IVPB SCH ×2 (11:20→23:15)
[2022-04-24] MEDS ORDERED: Furosemide 100 MG/10 ML VIAL SLOW IVP SCH (13:15)
[2022-04-24] MEDS: Sodium Chloride 0.9% 1,000 ML IV SCH (14:42)
[2022-04-24] MEDS: Atorvastatin Calcium 10 MG TAB PO SCH (21:45)
[2022-04-24] MEDS: Insulin Glargine 30 UNITS/0.3 ML VIAL SC SCH (21:46)
[2022-04-24] MEDS: Montelukast Sodium 10 mg Tablet PO SCH (21:46)
[2022-04-25 06:22] LABS: Band 2 % (5-11); Hemoglobin 8.2 g/dL (12.0-16.0); Lymphocytes 84 % (21-51); MDiff Complete? YES; Mean Corpuscular HGB CONC 31.4 g/dL (32.0-36.0); Mean Corpuscular Hemoglobin 30.2 pg (27.0-31.0); Mean Corpuscular Volume 96.2 fl (78.0-98.0); Mean Platelet Volume 11.6 fL (7.4-10.4); Monocytes 2 % (0-10); Neutrophil 11 % (42-75); Platelet Count 51 10x3/uL (130-400); Platelet Morphology Comment Appears Decreased; RBC Distribution Width 15.8 % (11.5-14.5); Reactive Lymphocytes 1 % (0-10); Red Blood Cell (RBC) Count 2.71 mill/uL (4.20-5.40); White Blood Cell (WBC) Count 32.2 10x3/uL (4.8-10.8)
[2022-04-25 06:24] LABS: Anion Gap 14 mmol/L (10-20); BUN (Urea Nitrogen) 24 mg/dL (9.8-20.1); Calc. Creatinine Clearance 54 mL/min (70-130); Calcium 8.5 mg/dL (7.8-10.44); Carbon Dioxide 24 mmol/L (23-31); Chloride 110 mmol/L (98-107); Estimated GFR 28; Glucose 92 mg/dL (80-115); Potassium 4.2 mmol/L (3.5-5.1); Sodium 144 mmol/L (136-145)
[2022-04-25] MEDS: Dronedarone HCl 400 MG TAB PO SCH ×2 (08:37→16:40)
[2022-04-25] MEDS: Cholecalciferol (Vitamin D3) 400 UNITS TAB PO SCH (08:38)
[2022-04-25] MEDS: Ferrous Sulfate 325 MG TAB PO SCH (08:38)
[2022-04-25] MEDS: Ascorbic Acid 500 mg Chewable Tablet PO SCH (08:38)
[2022-04-25] MEDS: Meropenem 1 GM in Sodium Chloride 0.9% 100 ML IVPB SCH ×2 (11:10→23:01)
[2022-04-25] MEDS ORDERED: Furosemide 40 MG/4 ML VIAL SLOW IVP SCH (14:00)
[2022-04-25] MEDS: Insulin Glargine 30 UNITS/0.3 ML VIAL SC SCH (20:56)
[2022-04-25] MEDS: Montelukast Sodium 10 mg Tablet PO SCH (21:06)
[2022-04-25] MEDS: Atorvastatin Calcium 10 MG TAB PO SCH (21:06)
[2022-04-25 21:08] LABS: CMV DNA-PCR Test Negative (Negative)
[2022-04-26 06:21] LABS: Anion Gap 14 mmol/L (10-20); BUN (Urea Nitrogen) 28 mg/dL (9.8-20.1); Calc. Creatinine Clearance 64 mL/min (70-130); Calcium 8.4 mg/dL (7.8-10.44); Carbon Dioxide 28 mmol/L (23-31); Chloride 109 mmol/L (98-107); Estimated GFR 34; Glucose 100 mg/dL (80-115); Potassium 3.9 mmol/L (3.5-5.1); Sodium 147 mmol/L (136-145)
[2022-04-26] MEDS: Dronedarone HCl 400 MG TAB PO SCH ×3 (08:14→17:32)
[2022-04-26] MEDS: Ascorbic Acid 500 mg Chewable Tablet PO SCH (08:17)
[2022-04-26] MEDS: Ferrous Sulfate 325 MG TAB PO SCH (08:17)
[2022-04-26] MEDS: Cholecalciferol (Vitamin D3) 400 UNITS TAB PO SCH (08:17)
[2022-04-26 10:59] LABS: Band 1 % (5-11); Hemoglobin 8.3 g/dL (12.0-16.0); Lymphocytes 81 % (21-51); MDiff Complete? YES; Mean Corpuscular HGB CONC 29.6 g/dL (32.0-36.0); Mean Corpuscular Hemoglobin 29.3 pg (27.0-31.0); Mean Corpuscular Volume 98.9 fl (78.0-98.0); Mean Platelet Volume 11.3 fL (7.4-10.4); Monocytes 2 % (0-10); Neutrophil 16 % (42-75); Platelet Count 52 10x3/uL (130-400); RBC Distribution Width 15.9 % (11.5-14.5); Red Blood Cell (RBC) Count 2.82 mill/uL (4.20-5.40); White Blood Cell (WBC) Count 28.1 10x3/uL (4.8-10.8)
[2022-04-26 11:00] LABS: Platelet Morphology Comment Appears Decreased; RBC Morphology Normal
[2022-04-26] MEDS: Meropenem 1 GM in Sodium Chloride 0.9% 100 ML IVPB SCH ×2 (11:36→23:59)
[2022-04-26] MEDS: Insulin Glargine 30 UNITS/0.3 ML VIAL SC SCH (21:26)
[2022-04-26] MEDS: Atorvastatin Calcium 10 MG TAB PO SCH (21:27)
[2022-04-26] MEDS: Montelukast Sodium 10 mg Tablet PO SCH (21:27)
[2022-04-27 06:40] LABS: Anion Gap 16 mmol/L (10-20); BUN (Urea Nitrogen) 26 mg/dL (9.8-20.1); Calc. Creatinine Clearance 74 mL/min (70-130); Calcium 8.5 mg/dL (7.8-10.44); Carbon Dioxide 24 mmol/L (23-31); Chloride 111 mmol/L (98-107); Estimated GFR 41; Glucose 87 mg/dL (80-115); Potassium 3.9 mmol/L (3.5-5.1); Sodium 147 mmol/L (136-145)
[2022-04-27] MEDS: Ferrous Sulfate 325 MG TAB PO SCH (09:13)
[2022-04-27] MEDS: Ascorbic Acid 500 mg Chewable Tablet PO SCH (09:13)
[2022-04-27] MEDS: Dronedarone HCl 400 MG TAB PO SCH ×2 (09:13→16:22)
[2022-04-27 09:17] LABS: Band 3 % (5-11); Hemoglobin 8.6 g/dL (12.0-16.0); Lymphocytes 84 % (21-51); MDiff Complete? YES; Mean Corpuscular Hemoglobin 31.8 pg (27.0-31.0); Mean Corpuscular Volume 99.4 fl (78.0-98.0); Mean Platelet Volume 10.8 fL (7.4-10.4); Monocytes 4 % (0-10); Neutrophil 9 % (42-75); Platelet Count 59 10x3/uL (130-400); Platelet Morphology Comment Appears Decreased; Polychromasia SLIGHT = 2-3 cells (100X) (0-2/hpf); RBC Distribution Width 15.6 % (11.5-14.5); Red Blood Cell (RBC) Count 2.69 mill/uL (4.20-5.40); White Blood Cell (WBC) Count 29.2 10x3/uL (4.8-10.8)
[2022-04-27] MEDS: Cholecalciferol (Vitamin D3) 400 UNITS TAB PO SCH (09:24)
[2022-04-27] MEDS: Meropenem 1 GM in Sodium Chloride 0.9% 100 ML IVPB SCH ×2 (11:27→23:13)
[2022-04-27] MEDS: Insulin Glargine 30 UNITS/0.3 ML VIAL SC SCH ×2 (21:06→21:20)
[2022-04-27] MEDS: Atorvastatin Calcium 10 MG TAB PO SCH (21:06)
[2022-04-27] MEDS: Montelukast Sodium 10 mg Tablet PO SCH (21:06)
[2022-04-28 07:21] LABS: Anion Gap 16 mmol/L (10-20); BUN (Urea Nitrogen) 26 mg/dL (9.8-20.1); Calc. Creatinine Clearance 87 mL/min (70-130); Calcium 8.5 mg/dL (7.8-10.44); Carbon Dioxide 28 mmol/L (23-31); Chloride 110 mmol/L (98-107); Estimated GFR 50; Glucose 91 mg/dL (80-115); Potassium 3.7 mmol/L (3.5-5.1); Sodium 150 mmol/L (136-145)
[2022-04-28 08:15] LABS: Hemoglobin 7.9 g/dL (12.0-16.0); Mean Corpuscular Hemoglobin 29.8 pg (27.0-31.0); Mean Corpuscular Volume 99.5 fl (78.0-98.0); Mean Platelet Volume 11.1 fL (7.4-10.4); Platelet Count 68 10x3/uL (130-400); RBC Distribution Width 15.4 % (11.5-14.5); Red Blood Cell (RBC) Count 2.65 mill/uL (4.20-5.40); White Blood Cell (WBC) Count 30.3 10x3/uL (4.8-10.8)
[2022-04-28 08:59] LABS: Band 2 % (5-11); Hypochromia SLIGHT = 6-15 cells (100X) (0-5/hpf); Lymphocytes 81 % (21-51); MDiff Complete? YES; Metamyelocyte 1 % (0-0); Microcytosis SLIGHT = 6-15 cells (100X) (0-5/hpf); Monocytes 1 % (0-10); Neutrophil 14 % (42-75); Platelet Morphology Comment Appears Decreased; Reactive Lymphocytes 1 % (0-10)
[2022-04-28] MEDS: Dronedarone HCl 400 MG TAB PO SCH ×2 (09:16→17:21)
[2022-04-28] MEDS: Ascorbic Acid 500 mg Chewable Tablet PO SCH (09:16)
[2022-04-28] MEDS: Ferrous Sulfate 325 MG TAB PO SCH (09:17)
[2022-04-28] MEDS: Cholecalciferol (Vitamin D3) 400 UNITS TAB PO SCH (09:17)
[2022-04-28] MEDS ORDERED: Furosemide 100 MG/10 ML VIAL SLOW IVP SCH (10:00)
[2022-04-28] MEDS: Dextrose 5% in Water 1,000 ML IV SCH (10:39)
[2022-04-28] MEDS: Meropenem 1 GM in Sodium Chloride 0.9% 100 ML IVPB SCH ×2 (11:04→20:12)
[2022-04-28] MEDS: Atorvastatin Calcium 10 MG TAB PO SCH (20:55)
[2022-04-28] MEDS: Montelukast Sodium 10 mg Tablet PO SCH (20:55)
[2022-04-28] MEDS: Insulin Glargine 30 UNITS/0.3 ML VIAL SC SCH (21:48)
[2022-04-29] MEDS: Meropenem 1 GM in Sodium Chloride 0.9% 100 ML IVPB SCH ×3 (03:56→23:21)
[2022-04-29 07:05] LABS: Anion Gap 15 mmol/L (10-20); BUN (Urea Nitrogen) 25 mg/dL (9.8-20.1); Calc. Creatinine Clearance 90 mL/min (70-130); Calcium 8.6 mg/dL (7.8-10.44); Carbon Dioxide 29 mmol/L (23-31); Chloride 108 mmol/L (98-107); Estimated GFR 52; Glucose 115 mg/dL (80-115); Potassium 3.6 mmol/L (3.5-5.1); Sodium 148 mmol/L (136-145)
[2022-04-29] MEDS: Dextrose 5% in Water 1,000 ML IV SCH (09:50)
[2022-04-29] MEDS: Dronedarone HCl 400 MG TAB PO SCH ×3 (09:56→18:26)
[2022-04-29] MEDS: Ascorbic Acid 500 mg Chewable Tablet PO SCH (09:56)
[2022-04-29] MEDS: Ferrous Sulfate 325 MG TAB PO SCH (09:56)
[2022-04-29] MEDS: Cholecalciferol (Vitamin D3) 400 UNITS TAB PO SCH (09:57)
[2022-04-29 09:58] LABS: Anisocytosis SLIGHT = 6-15 cells (100X) (0-5/hpf); Band 4 % (5-11); Lymphocytes 83 % (21-51); MDiff Complete? YES; Mean Corpuscular HGB CONC 30.4 g/dL (32.0-36.0); Mean Corpuscular Hemoglobin 29.9 pg (27.0-31.0); Mean Corpuscular Volume 98.3 fl (78.0-98.0); Monocytes 3 % (0-10); Neutrophil 10 % (42-75); Platelet Count 73 10x3/uL (130-400); Platelet Morphology Comment Appears Decreased; RBC Distribution Width 15.3 % (11.5-14.5); Red Blood Cell (RBC) Count 2.68 mill/uL (4.20-5.40); White Blood Cell (WBC) Count 33.4 10x3/uL (4.8-10.8)
[2022-04-29] MEDS: Insulin Glargine 30 UNITS/0.3 ML VIAL SC SCH (21:24)
[2022-04-29] MEDS: Atorvastatin Calcium 10 MG TAB PO SCH (21:56)
[2022-04-29] MEDS: Montelukast Sodium 10 mg Tablet PO SCH ×2 (21:56)
[2022-04-30] MEDS: Dextrose 5% in Water 1,000 ML IV SCH (02:28)
[2022-04-30] MEDS: Meropenem 1 GM in Sodium Chloride 0.9% 100 ML IVPB SCH ×2 (04:10→10:45)
[2022-04-30] MEDS: Ascorbic Acid 500 mg Chewable Tablet PO SCH (08:53)
[2022-04-30] MEDS: Dronedarone HCl 400 MG TAB PO SCH (08:53)
[2022-04-30] MEDS: Cholecalciferol (Vitamin D3) 400 UNITS TAB PO SCH (08:53)
[2022-04-30] MEDS: Ferrous Sulfate 325 MG TAB PO SCH (08:53)
[2022-04-30 09:07] VITALS: BP 107/68; TEMP 97.7
== END 2022-04-30 16:11 | disposition hospice, home (50) | DRG 871 ==
LOC: ERS 12:02 → ERHOLD 15:51 → 2NO 18:18 → T4-A 04-13 16:17 → 2NO 04-16 22:46 → T4-B 04-23 15:38
PROVIDERS: ADMIT Internal Medicine; ATTEND Internal Medicine
PROC: 3E03329 Introduction of Other Anti-infective into Peripheral Vein, Percutaneous Approach (ICD-10-PCS; principal; 2022-04-09)
PROC: 30233N1 Transfusion of Nonautologous Red Blood Cells into Peripheral Vein, Percutaneous Approach (ICD-10-PCS; 2022-04-23)
DX: A41.9 Sepsis, unspecified organism (principal); J12.82 Pneumonia due to coronavirus disease 2019; U07.1 COVID-19; J96.21 Acute and chronic respiratory failure with hypoxia; C91.10 Chronic lymphocytic leukemia of B-cell type not having achieved remission; N17.9 Acute kidney failure, unspecified; N39.0 Urinary tract infection, site not specified; Z66 Do not resuscitate; Z51.5 Encounter for palliative care; N18.30 Chronic kidney disease, stage 3 unspecified; I48.91 Unspecified atrial fibrillation; D69.6 Thrombocytopenia, unspecified; I12.9 Hypertensive chronic kidney disease with stage 1 through stage 4 chronic kidney disease, or unspecified chronic kidney disease; J45.909 Unspecified asthma, uncomplicated; E11.22 Type 2 diabetes mellitus with diabetic chronic kidney disease; G47.33 Obstructive sleep apnea (adult) (pediatric); M10.9 Gout, unspecified; E89.0 Postprocedural hypothyroidism; E86.0 Dehydration; I49.3 Ventricular premature depolarization; D63.0 Anemia in neoplastic disease; E87.6 Hypokalemia; Z99.81 Dependence on supplemental oxygen; Z88.8 Allergy status to other drugs, medicaments and biological substances; Z91.09 Other allergy status, other than to drugs and biological substances; Z79.899 Other long term (current) drug therapy; Z79.4 Long term (current) use of insulin; Z90.710 Acquired absence of both cervix and uterus; Z82.3 Family history of stroke; Z82.49 Family history of ischemic heart disease and other diseases of the circulatory system
CPT/HCPCS: 36415; 36416; 36430; 51701; 71045; 80048; 80053; 80202; 81001; 81003; 81015; 82043; 82248; 82274; 82533; 83605; 83615; 83690; 83735; 83880; 84100; 84145; 84484; 84550; 85025; 85610; 85730; 86769; 86850; 86900; 86901; 87040; 87086; 87449; 87497; 87811; 93005; 93010; 93306; 94760; 96361; 96365; J0295; J0692; J0696; J1610; J1815; J1940; J2185; J2405; J3370; J3475; J3480; J3490; J7050; J7070; P9016; P9047; Q0162; U0003; U0005